=== PATIENT | female | born 1945 | race African-American/Black ===

== ENCOUNTER 2018-05-01 14:08 | Inpatient (IN) | payer MEDICARE ==
[2018-05-01] MEDS ORDERED: ONDANSETRON 4 MG TAB.RAPDIS PO ONE (14:32)
[2018-05-01] MEDS ORDERED: PANTOPRAZOLE SODIUM 40 MG VIAL IV ONE (14:34)
[2018-05-01 14:51] LABS: ABSOLUTE LYMPHOCYTES (AUTO) 1.1 10^3/uL (0.5-4.7); ABSOLUTE MONOCYTES (AUTO) 0.4 10^3/uL (0.1-1.4); BASOPHILS % (AUTO) 0.4 % (0-2); EOSINOPHILS % (AUTO) 0.1 % (0-6); HEMOGLOBIN 16.6 g/dL (12.0-15.5); LYMPHOCYTES % (AUTO) 9.1 % (13-45); MEAN CORPUSCULAR HEMOGLOBIN 31.6 pg (27.0-33.4); MEAN CORPUSCULAR HGB CONC 35.3 g/dL (32.0-36.0); MEAN CORPUSCULAR VOLUME 90 fl (80-97); MONOCYTES % (AUTO) 3.3 % (3-13); PLATELET COUNT 250 10^3/uL (150-450); RED BLOOD COUNT 5.25 10^6/uL (3.72-5.28); RED CELL DISTRIBUTION WIDTH 12.2 % (11.5-14.0); SEGMENTED NEUTROPHILS % (AUTO) 87.1 % (42-78); TOTAL CELLS COUNTED % (AUTO) 100 %; WHITE BLOOD COUNT 12.6 10^3/uL (4.0-10.5)
[2018-05-01] MEDS ORDERED: MORPHINE SULFATE 10 MG/ML INJ IV ONE ×2 (15:01→17:39)
--- NOTE | 2018-05-01 15:12 | ER Document Report ---
ED Medical Screen (RME) - General Chief Complaint: Nausea/Vomiting Stated Complaint: ABDOMINAL PAIN Time Seen by Provider: 05/01/18 14:19 TRAVEL OUTSIDE OF THE [place] IN LAST 30 DAYS: No - HPI Onset: Other - 72-year-old woman with a history of reflux in the past previously evaluated and started on Zantac subsequently stopping it with intense abdominal pain recurrent vomiting which prompted her to present to the emergency room for further evaluation. She denies any fevers or chills, secondary signs of infection. She is not trying to take anything to help with this. - Related Data Allergies/Adverse Reactions: No Known Allergies Allergy (Verified 05/01/18 14:16) Past Medical History - Social History Chew tobacco use (# tins/day): No Drug Abuse: None - Past Medical History Cardiac Medical History: Reports: Hx Hypertension Renal/ Medical History: Denies: Hx Peritoneal Dialysis Physical Exam - Vital signs Vitals: Temp Pulse Resp BP Pulse Ox 97.8 F 88 22 H 194/86 H 100 05/01/18 14:12 05/01/18 14:12 05/01/18 14:12 05/01/18 14:12 05/01/18 14:12 Course - Re-evaluation Re-evalutation: 05/01/18 15:13 I performed a rapid screening examination of this patient, will defer further disposition determination of workup to attending provider in the emergency department. Believe that this patient will require further evaluation, have ordered labs and initiated treatment - Vital Signs Vital signs: Temp Pulse Resp BP Pulse Ox 97.8 F 88 22 H 194/86 H 100 05/01/18 14:12 05/01/18 14:12 05/01/18 14:12 05/01/18 14:12 05/01/18 14:12 - Laboratory Result Diagrams: 05/01/18 14:39 05/01/18 14:39 Laboratory results interpreted by me: 05/01/18 14:39 WBC 12.6 H Hgb 16.6 H Seg Neutrophils % 87.1 H Lymphocytes % 9.1 L Absolute Neutrophils 11.0 H
[2018-05-01 15:16] LABS: ALANINE AMINOTRANSFERASE 33 U/L (9-52); ALBUMIN 5.2 g/dL (3.5-5.0); ALKALINE PHOSPHATASE 105 U/L (38-126); ANION GAP 15 (5-19); ASPARTATE AMINO TRANSFERASE 38 U/L (14-36); BILIRUBIN,DIRECT 0.3 mg/dL (0.0-0.4); BILIRUBIN,TOTAL 0.7 mg/dL (0.2-1.3); BLOOD UREA NITROGEN 11 mg/dL (7-20); CALCIUM 11.5 mg/dL (8.4-10.2); CARBON DIOXIDE 28 mmol/L (22-30); CHLORIDE 101 mmol/L (98-107); GLUCOSE 206 mg/dL (75-110); LIPASE 163.6 U/L (23-300); POTASSIUM 3.7 mmol/L (3.6-5.0); SODIUM 143.8 mmol/L (137-145); TOTAL PROTEIN 9.8 g/dL (6.3-8.2)
--- NOTE | 2018-05-01 15:47 | RADIOLOGY REPORT (SQ) ---
EXAM DESCRIPTION: ACUTE ABDOMEN SERIES COMPLETED DATE/TIME: 05/01/2018 3:39 pm REASON FOR STUDY: concern for obstruction COMPARISON: None. NUMBER OF VIEWS: Three views. TECHNIQUE: Frontal chest, supine abdomen and upright/decubitus abdomen radiographic images acquired. LIMITATIONS: None. FINDINGS: CHEST: Lungs clear of infiltrates. FREE AIR: None. No abnormal gas collections. BOWEL GAS PATTERN: Nonobstructive pattern. No dilated loops or air fluid levels. CALCIFICATIONS: No suspicious calcifications. HARDWARE: None in the abdomen. SOFT TISSUES: No gross mass or suggestion of organomegaly. BONES: No acute fracture. No worrisome bone lesions. OTHER: No other significant finding. IMPRESSION: NO RADIOGRAPHIC EVIDENCE FOR ACUTE ABDOMINAL DISEASE. TECHNICAL DOCUMENTATION: JOB ID: [id number] [employer]- All Rights Reserved Reading location - IP/workstation name: [facility], [id number]
--- NOTE | 2018-05-01 16:23 | ER Document Report ---
ED General - General Chief Complaint: Nausea/Vomiting Stated Complaint: ABDOMINAL PAIN Time Seen by Provider: 05/01/18 14:19 TRAVEL OUTSIDE OF THE [place] IN LAST 30 DAYS: No - HPI Notes: Patient is a 72-year-old female that presents to the emergency department for chief complaint of nausea vomiting and diarrhea. Patient started having vomiting and diarrhea this morning. Her daughter states that she has been admitted a few times in the recent past in [place] for similar symptoms. Patient had EGD performed which showed gastritis. Her daughter states she was started on a medication at home for a month which significantly improved her symptoms. Patient has not been on those medications and seems to have increased GI complaints. She reports feeling sweaty as well. She denies any chest pain, shortness of breath, palpitations, numbness, weakness, headache and vision changes. She states she has had a stress test but has been a long time. She denies history of cardiac disease in the past. Past Medical History: Hypertension, spinal stenosis Past Surgical History: Hysterectomy Social History: Occasional alcohol. Denies tobacco and drugs Family History: Reviewed and noncontributory for presenting illness Allergies: Reviewed, see documented allergy list. REVIEW OF SYSTEMS: CONSTITUTIONAL : No fever No chills diaphoresis No recent illness EENT: No vision changes No congestion No sore throat CARDIOVASCULAR: No chest pain No palpitations RESPIRATORY: No shortness of breath No cough No difficulty breathing GASTROINTESTINAL: No abdominal pain nausea vomiting diarrhea GENITOURINARY: No dysuria No hematuria No difficulty urinating MUSCULOSKELETAL: No back pain No leg pain No arm pain SKIN: No rashes No lesions LYMPHATIC: No swollen, enlarged glands. NEUROLOGICAL: No lightheadedness No headache No weakness No paresthesias PSYCHIATRIC: No anxiety No depression PHYSICAL EXAMINATION: Vital signs reviewed, nursing noted reviewed. GENERAL: Mildly diaphoretic, well-nourished HEAD: Atraumatic, normocephalic. EYES: Eyes appear normal, extraocular movements intact, sclera anicteric, conjunctiva are normal. ENT: nares patent, oropharynx clear without exudates. Moist mucous membranes. NECK: Normal range of motion, supple without lymphadenopathy LUNGS: Breath sounds clear to auscultation bilaterally and equal. No wheezes rales or rhonchi. HEART: Regular rate and rhythm without murmurs ABDOMEN: Soft, nontender, normoactive bowel sounds. No rebound, guarding, or rigidity. No masses appreciated. EXTREMITIES: Nontender, good range of motion, no pitting or edema. NEUROLOGICAL: No focal neurological deficits. Moves all extremities spontaneously Motor and sensory grossly intact on exam. PSYCH: Normal mood, normal affect. SKIN: Warm, Dry, normal turgor, no rashes or lesions noted on exposed skin - Related Data Allergies/Adverse Reactions: No Known Allergies Allergy (Verified 05/01/18 14:16) Past Medical History - Social History Smoking Status: Never Smoker Chew tobacco use (# tins/day): No Drug Abuse: None Family History: Reviewed & Not Pertinent Patient has suicidal ideation: No Patient has homicidal ideation: No - Past Medical History Cardiac Medical History: Reports: Hx Hypertension Renal/ Medical History: Denies: Hx Peritoneal Dialysis Review of Systems - Review of Systems Notes: Dictated Physical Exam - Vital signs Vitals: Temp Pulse Resp BP Pulse Ox 97.8 F 88 22 H 194/86 H 100 05/01/18 14:12 05/01/18 14:12 05/01/18 14:12 05/01/18 14:12 05/01/18 14:12 - Notes Notes: Dictated Course - Re-evaluation Re-evalutation: 05/01/18 17:41 Vitals reviewed. Nursing notes reviewed. Patient reevaluated and appears worse. Repeat abdominal exam now shows left lower quadrant tenderness that is new from her initial presentation. She is more diaphoretic and nauseated. Patient was given another dose of morphine and Phenergan for symptom medic treatment. Repeat EKG obtained. Her lab work reviewed is unremarkable. Her troponin is negative. Lipase normal. KUB showed no obstructive pathology. 05/01/18 20:37 Patient reevaluated. Her pain has improved after morphine but is not completely resolved. She is still mildly diaphoretic. Repeat troponin is negative. Patient still appears ill and will be admitted to the hospital for telemetry monitoring of her abnormal EKG and continued abdominal pain. Case discussed with Dr. Dalton who accepted admission. Laboratory 05/01/18 05/01/18 05/01/18 14:39 14:39 14:39 WBC 12.6 H RBC 5.25 Hgb 16.6 H Hct 47.0 MCV 90 MCH 31.6 MCHC 35.3 RDW 12.2 Plt Count 250 Seg Neutrophils % 87.1 H Lymphocytes % 9.1 L Monocytes % 3.3 Eosinophils % 0.1 Basophils % 0.4 Absolute Neutrophils 11.0 H Absolute Lymphocytes 1.1 Absolute Monocytes 0.4 Absolute Eosinophils 0.0 Absolute Basophils 0.0 Sodium 143.8 Potassium 3.7 Chloride 101 Carbon Dioxide 28 Anion Gap 15 BUN 11 Creatinine 0.70 Est GFR ( Amer) > 60 Est GFR (Non-Af Amer) > 60 Glucose 206 H Calcium 11.5 H Total Bilirubin 0.7 Direct Bilirubin 0.3 Neonat Total Bilirubin Not Reportable Neonat Direct Bilirubin Not Reportable Neonat Indirect Bili Not Reportable AST 38 H ALT 33 Alkaline Phosphatase 105 Troponin I < 0.012 Total Protein 9.8 H Albumin 5.2 H Lipase 163.6 Urine Color Urine Appearance Urine pH Ur Specific Oaks Urine Protein Urine Glucose (UA) Urine Ketones Urine Blood Urine Nitrite Urine Bilirubin Urine Urobilinogen Ur Leukocyte Esterase Urine WBC (Auto) Urine RBC (Auto) Squamous Epi Cells Auto Urine Mucus (Auto) Urine Ascorbic Acid 05/01/18 05/01/18 17:10 19:46 WBC RBC Hgb Hct MCV MCH MCHC RDW Plt Count Seg Neutrophils % Lymphocytes % Monocytes % Eosinophils % Basophils % Absolute Neutrophils Absolute Lymphocytes Absolute Monocytes Absolute Eosinophils Absolute Basophils Sodium Potassium Chloride Carbon Dioxide Anion Gap BUN Creatinine Est GFR ( Amer) Est GFR (Non-Af Amer) Glucose Calcium Total Bilirubin Direct Bilirubin Neonat Total Bilirubin Neonat Direct Bilirubin Neonat Indirect Bili AST ALT Alkaline Phosphatase Troponin I < 0.012 Total Protein Albumin Lipase Urine Color STRAW Urine Appearance CLEAR Urine pH 9.0 Ur Specific Oaks 1.015 Urine Protein 100 H Urine Glucose (UA) >=1000 H Urine Ketones 100 H Urine Blood NEGATIVE Urine Nitrite NEGATIVE Urine Bilirubin NEGATIVE Urine Urobilinogen NEGATIVE Ur Leukocyte Esterase NEGATIVE Urine WBC (Auto) 1 Urine RBC (Auto) 4 Squamous Epi Cells Auto <1 Urine Mucus (Auto) RARE Urine Ascorbic Acid NEGATIVE Acute Abdomen Series 05/01/18 14:32 IMPRESSION: NO RADIOGRAPHIC EVIDENCE FOR ACUTE ABDOMINAL DISEASE. Abdomen/Pelvis CT 05/01/18 17:39 IMPRESSION: 1. Mild diverticulosis coli. 2. Anterolisthesis of L3 on L4. 3. Possible small low-density gallstones. 4. No acute findings in the abdomen or pelvis. - Vital Signs Vital signs: Temp Pulse Resp BP Pulse Ox 97.8 F 88 22 H 194/86 H 100 05/01/18 14:12 05/01/18 14:12 05/01/18 14:12 05/01/18 14:12 05/01/18 14:12 - Laboratory Result Diagrams: 05/01/18 14:39 05/01/18 14:39 Laboratory results interpreted by me: 05/01/18 05/01/18 05/01/18 14:39 14:39 17:10 WBC 12.6 H Hgb 16.6 H Seg Neutrophils % 87.1 H Lymphocytes % 9.1 L Absolute Neutrophils 11.0 H Glucose 206 H Calcium 11.5 H AST 38 H Total Protein 9.8 H Albumin 5.2 H Urine Protein 100 H Urine Glucose (UA) >=1000 H Urine Ketones 100 H - EKG Interpretation by Me Additional EKG results interpreted by me: 05/01/18 16:22 Interpreted by myself 1541: Normal sinus rhythm, rate 88, prolonged QT, QTC 509, PACs, normal axis, biphasic T waves V2 with ST elevation, inverted T waves V3 with no ST elevation 05/01/18 16:22 05/01/18 19:35 Repeat EKG 1759: Interpreted by myself. Improved T wave morphology V2 V3, no ST elevation, sinus tachycardia, rate 108, normal axis Discharge - Discharge Clinical Impression: Abnormal EKG Nausea and vomiting Qualifiers: Vomiting type: unspecified Vomiting Intractability: non-intractable Qualified Code(s): R11.2 - Nausea with vomiting, unspecified Diarrhea Qualifiers: Diarrhea type: unspecified type Qualified Code(s): R19.7 - Diarrhea, unspecified Abdominal pain Qualifiers: Abdominal location: left lower quadrant Qualified Code(s): R10.32 - Left lower quadrant pain Condition: Stable Disposition: ADMITTED OBSERVATION Admitting Provider: Hospitalist Unit Admitted: Telemetry
[2018-05-01 17:21] LABS: APPEARANCE,URINE CLEAR; BILIRUBIN,URINE NEGATIVE (NEGATIVE); COLOR,URINE STRAW; KETONES,URINE 100 mg/dL (NEGATIVE); LEUKOCYTE ESTERASE,URINE NEGATIVE (NEGATIVE); NITRITE,URINE NEGATIVE (NEGATIVE); PROTEIN,URINE 100 mg/dL (NEGATIVE); UROBILINOGEN,URINE NEGATIVE mg/dL (<2.0)
[2018-05-01 17:27] LABS: GLUCOSE, URINE >=1000 mg/dL (NEGATIVE); URINE SPECIFIC GRAVITY 1.015
[2018-05-01] MEDS ORDERED: NORMAL SALINE 1000 ML 1,000 ML IV ONE (17:40)
[2018-05-01] MEDS ORDERED: ASPIRIN 81 MG TABLET, CHEWABLE PO ONE (17:41)
[2018-05-01] MEDS ORDERED: PROMETHAZINE HCL INJ 25 MG/1 ML VIAL IV ONE ×2 (17:41→21:28)
--- NOTE | 2018-05-01 18:59 | RADIOLOGY REPORT (SQ) ---
EXAM DESCRIPTION: CT ABD/PELVIS WITH IV ONLY COMPLETED DATE/TIME: 05/01/2018 6:42 pm REASON FOR STUDY: abdominal pain COMPARISON: None. TECHNIQUE: CT scan of the abdomen and pelvis performed using helical scanning technique with dynamic intravenous contrast injection. No oral contrast. Images reviewed with lung, soft tissue, and bone windows. Reconstructed coronal and sagittal MPR images reviewed. Delayed images for evaluation of the urinary system also acquired. All images stored on PACS. All CT scanners at this facility use dose modulation, iterative reconstruction, and/or weight based d osing when appropriate to reduce radiation dose to as low as reasonably achievable (ALARA). [facility]: Dose Right [facility]: CareDose [facility]: Dose Right [facility]: Teradose 4D [facility]: Passworks CONTRAST TYPE AND DOSE: contrast/concentration: Isovue 350.00 mg/ml; Total Contrast Delivered: 79.0 ml; Total Saline Delivered: 43.0 ml RENAL FUNCTION: BUN 11 creatinine 0.7 RADIATION DOSE: CT Rad equipment meets quality standard of care and radiation dose reduction techniq ues were employed. CTDIvol: 6.2 - 8.4 mGy. DLP: 702 mGy-cm.. LIMITATIONS: None. FINDINGS: LOWER CHEST: No significant findings. No nodules or infiltrates. LIVER: Normal size. No masses. No dilated ducts. SPLEEN: Normal size. No focal lesions. PANCREAS: No masses. No significant calcifications. No adjacent inflammation or peripancreatic fluid collections. Pancreatic duct not dilated. GALLBLADDER: Possible low-density gallstones. ADRENAL GLANDS: No significant masses or asymmetry. RIGHT KIDNEY AND URETER: No solid masses. No significant calcifications. No hydronephrosis or hyd roureter. LEFT KIDNEY AND URETER: No solid masses. No significant calcifications. No hydronephrosis or hydr oureter. AORTA AND VESSELS: No aneurysm. No dissection. Renal arteries, SMA, celiac without stenosis. RETROPERITONEUM: No retroperitoneal adenopathy, hemorrhage or masses. BOWEL AND PERITONEAL CAVITY: Mild sigmoid diverticulosis with no acute inflammation. APPENDIX: Not identified. PELVIS: No mass. No free fluid. Normal bladder. ABDOMINAL WALL: No masses. No hernias. BONES: Anterolisthesis of L3 on L4. OTHER: No other significant finding. IMPRESSION: 1. Mild diverticulosis coli. 2. Anterolisthesis of L3 on L4. 3. Possible small low-density gallstones. 4. No acute findings in the abdomen or pelvis. TECHNICAL DOCUMENTATION: JOB ID: [id number] Quality ID # [id number]: Final reports with documentation of one or more dose reduction techniques (e.g., Au tomated exposure control, adjustment of the mA and/or kV according to patient size, use of iterative reconstruction technique) 2010 [employer]- All Rights Reserved Reading location - IP/workstation name: [email or web address]
--- NOTE | 2018-05-01 19:54 | EKG REPORT ---
SEVERITY:- ABNORMAL ECG - SINUS RHYTHM ATRIAL PREMATURE COMPLEX LEFT VENTRICULAR HYPERTROPHY BORDERLINE PROLONGED QT INTERVAL : Confirmed by: Pastora Fernandez MD 01-May-2018 19:53:21
--- NOTE | 2018-05-01 19:54 | EKG REPORT ---
SEVERITY:- ABNORMAL ECG - SINUS TACHYCARDIA LEFT VENTRICULAR HYPERTROPHY BORDERLINE PROLONGED QT INTERVAL : Confirmed by: Pastora Fernandez MD 01-May-2018 19:53:18
[2018-05-01] MEDS ORDERED: MAG HYDROX/AL HYDROX/SIMETH SUSP 30 ML UDCUP PO PRN (20:37)
[2018-05-01] MEDS ORDERED: NITROGLYCERIN 0.4 MG/TAB 25 TAB/BOTTLE SL PRN (20:37)
[2018-05-01] MEDS ORDERED: FUROSEMIDE INJ/PF 40 MG/4 ML SDV IV ONE (21:00)
[2018-05-01] MEDS ORDERED: LACTULOSE SYRUP 20 GM/30 ML UDCUP PO ONE (21:00)
[2018-05-01] MEDS: HYDRALAZINE HCL INJ/PF 20 MG/1 ML SDV IV PRN (21:03)
[2018-05-01 21:17] LABS: ANION GAP 16 (5-19); BLOOD UREA NITROGEN 11 mg/dL (7-20); CALCIUM 10.3 mg/dL (8.4-10.2); CARBON DIOXIDE 26 mmol/L (22-30); CHLORIDE 101 mmol/L (98-107); GLUCOSE 203 mg/dL (75-110); POTASSIUM 3.3 mmol/L (3.6-5.0); SODIUM 142.5 mmol/L (137-145)
[2018-05-01] MEDS: ATORVASTATIN CALCIUM 80 MG TABLET PO SCH (21:34)
[2018-05-01] MEDS ORDERED: ENALAPRILAT DIHYDRATE INJ/PF 2.5 MG/2 ML SDV IV ONE (22:15)
[2018-05-01] MEDS ORDERED: POTASSI CL 20 MEQ/50 ML RIDER 20 MEQ/50 ML RTUPB IV ONE (22:15)
[2018-05-02] MEDS ORDERED: MINERAL OIL ENEMA 133 ML PR ONE ×2 (00:48→01:00)
[2018-05-02] MEDS ORDERED: LORAZEPAM INJ 2 MG/1 ML VIAL IV ONE (02:00)
[2018-05-02 02:26] LABS: CREATINE KINASE MB 1.19 ng/mL (<4.55); TROPONIN I 0.031 ng/mL
--- NOTE | 2018-05-02 04:35 | PDOC H&P ---
History of Present Illness Admission Date/PCP: 05/01/18 20:40 Patient complains of: Abdominal pain nausea vomiting History of Present Illness: BRIANDA MCRAE is a 72 year old female with a past medical history of hypertension. She presents with 12 hours of abdominal pain nausea vomiting and diarrhea without blood. She has had several episodes in the past with unclear diagnosis. In the emergency room she is found to have hypercalcemia, hyperglycemia, uncontrolled hypertension and constipation on CT abdomen pelvis. She denies chest pain though has had diaphoresis and shortness of breath. She is unable to identify alleviating or exacerbating factors aside from Phenergan and morphine. She denies new medications. Past Medical History Cardiac Medical History: Reports: Hypertension Social History Information Source: Patient, Emergency Med Personnel, [facility] Records Lives with: Family Smoking Status: Never Smoker Drugs: None - Advance Directive Resuscitation Status: Full Code Family History Family History: Hypertension Parental Family History Reviewed: Yes Children Family History Reviewed: Yes Sibling(s) Family History Reviewed.: Yes Medication/Allergy Home Medications: Amlodipine Besylate [Norvasc 10 mg Tablet] 10 mg PO DAILY 05/01/18 Allergies/Adverse Reactions: No Known Allergies Allergy (Verified 05/01/18 14:16) Review of Systems Constitutional: PRESENT: as per HPI, fatigue. ABSENT: chills, fever(s), headache(s), night sweats, weakness Eyes: ABSENT: visual disturbances Ears: ABSENT: hearing changes Cardiovascular: ABSENT: chest pain, dyspnea on exertion, edema, orthropnea, palpitations Respiratory: ABSENT: cough, hemoptysis Gastrointestinal: PRESENT: as per HPI, abdominal pain, bloating, constipation, diarrhea, nausea, vomiting Genitourinary: ABSENT: dysuria, hematuria Musculoskeletal: ABSENT: joint swelling Integumentary: ABSENT: rash, wounds Neurological: ABSENT: abnormal gait, abnormal speech, confusion, dizziness, focal weakness, syncope Psychiatric: ABSENT: anxiety, depression, homidical ideation, suicidal ideation Endocrine: ABSENT: cold intolerance, heat intolerance, polydipsia, polyuria Hematologic/Lymphatic: ABSENT: easy bleeding, easy bruising Physical Exam Vital Signs: Temp Pulse Resp BP Pulse Ox 98.4 F 101 H 17 174/76 H 100 05/02/18 00:16 05/02/18 02:00 05/02/18 00:16 05/02/18 00:16 05/02/18 00:16 Intake & Output 04/30/18 05/01/18 05/02/18 11:59 11:59 11:59 Intake Total 50 Balance 50 Weight 66.4 kg General appearance: PRESENT: cooperative, mild distress, well-developed, well- nourished Head exam: PRESENT: atraumatic, normocephalic Eye exam: PRESENT: conjunctiva pink, EOMI, PERRLA. ABSENT: scleral icterus Ear exam: PRESENT: normal external ear exam Mouth exam: PRESENT: moist, tongue midline Neck exam: ABSENT: carotid bruit, JVD, lymphadenopathy, thyromegaly Respiratory exam: PRESENT: clear to auscultation ceci. ABSENT: rales, rhonchi, wheezes Cardiovascular exam: PRESENT: RRR. ABSENT: diastolic murmur, rubs, systolic murmur Pulses: PRESENT: normal dorsalis pedis pul Vascular exam: PRESENT: normal capillary refill GI/Abdominal exam: PRESENT: diminished bowel sounds, hypoactive bowel sounds, normal bowel sounds, soft, tenderness. ABSENT: distended, guarding, mass, organolmegaly, rebound, rigid Rectal exam: PRESENT: deferred Extremities exam: PRESENT: full ROM. ABSENT: calf tenderness, clubbing, pedal edema Neurological exam: PRESENT: alert, awake, oriented to person, oriented to place , oriented to time, oriented to situation, CN II-XII grossly intact. ABSENT: motor sensory deficit Psychiatric exam: PRESENT: appropriate affect, normal mood. ABSENT: homicidal ideation, suicidal ideation Skin exam: PRESENT: dry, intact, warm. ABSENT: cyanosis, rash Results Laboratory Results: 05/02/18 01:47 CK-MB (CK-2) 1.19 Troponin I 0.031 Impressions: Acute Abdomen Series 05/01/18 14:32 IMPRESSION: NO RADIOGRAPHIC EVIDENCE FOR ACUTE ABDOMINAL DISEASE. Abdomen/Pelvis CT 05/01/18 17:39 IMPRESSION: 1. Mild diverticulosis coli. 2. Anterolisthesis of L3 on L4. 3. Possible small low-density gallstones. 4. No acute findings in the abdomen or pelvis. Assessment & Plan - Diagnosis (1) Abdominal pain Qualifiers: Abdominal location: left lower quadrant Qualified Code(s): R10.32 - Left lower quadrant pain Is this a current diagnosis for this admission?: Yes Plan: Likely secondary to constipation with evidence on CT. Symptomatic management, Fleet enema, bowel regiment (2) Hyperglycemia Is this a current diagnosis for this admission?: Yes Plan: No history of diabetes, evaluate A1c, possible gastroparesis, avoid QT prolonging agents. (3) Hypercalcemia Is this a current diagnosis for this admission?: Yes Plan: Hydration and reevaluation. (4) Abnormal EKG Is this a current diagnosis for this admission?: Yes Plan: Prolonged QT, avoid prolonging agents. Atypical chest pain though the patient' s pain is atypical there are multiple risk factors for coronary artery disease and subsequently will observe and evaluation of acute coronary syndrome versus coronary artery disease with anginal equivalents. Cardiac monitoring blood pressure Q6 hours ,TSH, lipid profile, serial cardiac enzymes and cardiac stress test (5) Diarrhea Qualifiers: Diarrhea type: unspecified type Qualified Code(s): R19.7 - Diarrhea, unspecified Is this a current diagnosis for this admission?: Yes Plan: Likely secondary to constipation. Trial lactulose, Fleet enema. Bowel regiment (6) Nausea and vomiting Qualifiers: Vomiting type: unspecified Vomiting Intractability: non-intractable Qualified Code(s): R11.2 - Nausea with vomiting, unspecified Is this a current diagnosis for this admission?: Yes Plan: Gastroparesis versus constipation versus hypercalcemia. Symptomatic management reevaluation of above. - Time Time Spent: 30 to 50 Minutes
[2018-05-02] MEDS: HYDRALAZINE HCL INJ/PF 20 MG/1 ML SDV IV PRN ×2 (05:24→20:14)
[2018-05-02 08:42] LABS: ANION GAP 14 (5-19); BLOOD UREA NITROGEN 20 mg/dL (7-20); CALCIUM 10.3 mg/dL (8.4-10.2); CARBON DIOXIDE 24 mmol/L (22-30); CHLORIDE 103 mmol/L (98-107); CHOLESTEROL 212.42 mg/dL (0-200); GLUCOSE 177 mg/dL (75-110); POTASSIUM 3.6 mmol/L (3.6-5.0); SODIUM 141.2 mmol/L (137-145); TRIGLYCERIDES 61 mg/dL (<150)
[2018-05-02 08:53] LABS: CREATINE KINASE MB 1.01 ng/mL (<4.55); DIRECT LDL 112 mg/dL (<100); TROPONIN I 0.046 ng/mL
[2018-05-02] MEDS ORDERED: REGADENOSON INJ 0.4 MG/5 ML DISP.SYRIN IV ONE (11:41)
[2018-05-02] MEDS: DOCUSATE SODIUM 100 MG CAPSULE PO SCH ×2 (11:43→17:34)
[2018-05-02] MEDS: PSYLLIUM SEED-SF 5.85 GM PACKET PO SCH (11:45)
--- NOTE | 2018-05-02 11:58 | DRAGON STRESS TEST REPORT ---
INTRAVENOUS LEXISCAN CARDIOLITE STRESS TEST USING SINGLE PHOTON EMMISION COMPUTERIZED TOMOGRAPHIC. DATE OF PROCEDURE: May 02, 2018, INDICATION : Chest pain CARDIAC RISK FACTORS: Hypertension, dyslipidemia RESTING EKG: Sinus rhythm without any baseline ST-T wave changes STRESS EKG: No significant ST segment changes noted with LexiScan bolus REASON FOR TERMINATION: Protocol. PROCEDURE REPORT: Baseline heart rate 105 beats per minute with blood pressure of 156/83. Patient had no significant complaints. Patient was bolused with Lexiscan 0.4 mg intravenously followed by saline bolus. Heart rate at 2 minutes post bolus 125 with a blood pressure of 136/83. 3 minutes post bolus heart rate 123 with blood pressure of 145/82. No significant EKG changes were noted. Patient had no significant complaints during the procedure or postprocedure. CONCLUSIONS: Normal EKG and hemodynamic response to IV LexiScan. NUCLEAR DATA: At rest the patient was given 10.68 millicuries of technetium 99 sestamibi injected intravenously. As per protocol rest gated SPECT images were obtained. On day of stress test, the patient was given intravenous LexiScan at a dose of 0.4 mg in 5 mL intravenously, followed by flush with normal saline. Subsequently the stress dose of 31.7. millicuries of technetium 99 sestamibi was injected intravenously. As per protocol stress gated images were obtained. NUCLEAR INTERPRETATION: Both raw and processed data were used for interpretation. Visual, qualitative, computer-generated quantitative data was used. There was good myocardial uptake of technetium compound. Motion artifact and soft tissue attenuations were noted. Increased visceral uptake was noted. No definitive areas of transient perfusion defect noted, No definitive areas of fixed perfusion defect or scars noted. There was however a borderline decreased uptake noted in the mid anterior wall and mid anterolateral wall which is felt to be related to differences in breast attenuation artifact, as there were no corresponding wall motion abnormalities, however an area of mild ischemia cannot be entirely ruled out. Total SDS was 2 therefore overall low risk. EKG gated imaging showed LV EF at 63 %, rest and stress gated EF similar visually. T. I D. ratio was 1.13. Lung heart ratio noted to be within normal limits 0.26, no significant extracardiac and abnormal radiotracer activities were noted. RV free wall uptake was noted to be WNL. IMPRESSION: Also refer to comments under nuclear interpretation. Also test results needs to be interpreted in the context of pretest probability. 1. No definitive areas of transient perfusion defect noted. Please refer to comment in nuclear interpretation. 2. There is no definitive scintigraphic evidence of myocardial infarction/scar. 3. EKG gated imaging shows left ventricular ejection fraction of approx. 63 %. 4. Clinical correlation requested as worse disease and or balanced ischemia could be missed. In approximately 10% of the cases Lexiscan may not cause adequate vasodilatory stress. RECOMMENDATIONS: Aggressive risk factor modification and medical management. Further evaluation may be needed if continued symptoms or other high risk indicators are noted on clinical evaluation. Close cardiology follow-up is also recommended. Clinical correlation with echocardiogram derived ejection fraction. Inability to exercise by itself can lead to increased cardiovascular event risks. Consider cardiology consultation and or follow-up if clinically indicated. I am available for cardiology evaluation and consultation if requested by the director industrial relations, unless patient already has a watch commander. Dr. Braxton Diaz. MRCP Board certified in cardiology and sleep medicine. Board certified in nuclear cardiology, adult echocardiography. [employer]
[2018-05-02] MEDS ORDERED: RINGERS SOLUTION,LACTATED 1,000 ML IV PRN (15:54)
--- NOTE | 2018-05-02 16:09 | PDOC PROGRESS REPORT ---
Subjective Progress Note for:: 05/02/18 Subjective:: Patient was admitted with nausea vomiting and nonbloody diarrhea. It appears this is an ongoing diagnosis issue. Denies any chest pain but still c/o vague abdominal pain, nausea and vomiting She had a stress test done today due to concerns about atypical chest pain and multiple risk factors for coronary artery disease. Her troponin is noted to be slightly elevated at 0.046 today. It was less than 0.012 on admission. Stress test reveals no definite areas of transient perfusion defect noted action fraction was noted to be 63%. Reason For Visit: CHEST AND ABD PAIN, HTN Physical Exam Vital Signs: Temp Pulse Resp BP Pulse Ox 97.8 F 101 H 14 158/84 H 100 05/02/18 14:00 05/02/18 14:00 05/02/18 14:00 05/02/18 14:00 05/02/18 14:00 Intake & Output 05/01/18 05/02/18 05/03/18 06:59 06:59 06:59 Intake Total 50 1200 Balance 50 1200 Weight 66.4 kg General appearance: PRESENT: no acute distress, well-developed, well-nourished Head exam: PRESENT: atraumatic, normocephalic Eye exam: PRESENT: conjunctiva pink, EOMI, PERRLA. ABSENT: scleral icterus Ear exam: PRESENT: normal external ear exam Mouth exam: PRESENT: moist, tongue midline Neck exam: ABSENT: carotid bruit, JVD, lymphadenopathy, thyromegaly Respiratory exam: PRESENT: clear to auscultation ceci. ABSENT: rales, rhonchi, wheezes Cardiovascular exam: PRESENT: RRR. ABSENT: diastolic murmur, rubs, systolic murmur Pulses: PRESENT: normal dorsalis pedis pul Vascular exam: PRESENT: normal capillary refill GI/Abdominal exam: PRESENT: normal bowel sounds, soft. ABSENT: distended, guarding, mass, organolmegaly, rebound, tenderness Rectal exam: PRESENT: deferred Extremities exam: PRESENT: full ROM. ABSENT: calf tenderness, clubbing, pedal edema Neurological exam: PRESENT: alert, awake, oriented to person, oriented to place , oriented to time, oriented to situation, CN II-XII grossly intact. ABSENT: motor sensory deficit Psychiatric exam: PRESENT: appropriate affect, normal mood. ABSENT: homicidal ideation, suicidal ideation Skin exam: PRESENT: dry, intact, warm. ABSENT: cyanosis, rash Results Laboratory Results: 05/02/18 08:00 05/02/18 08:00 Sodium 141.2 Potassium 3.6 Chloride 103 Carbon Dioxide 24 Anion Gap 14 BUN 20 Creatinine 1.17 Est GFR ( Amer) 55 L Est GFR (Non-Af Amer) 45 L Glucose 177 H Calcium 10.3 H Triglycerides 61 Cholesterol 212.42 H LDL Cholesterol Direct 112 H VLDL Cholesterol 12.0 HDL Cholesterol 75 05/02/18 05/02/18 01:47 08:00 CK-MB (CK-2) 1.19 1.01 Troponin I 0.031 0.046 Impressions: Acute Abdomen Series 05/01/18 14:32 IMPRESSION: NO RADIOGRAPHIC EVIDENCE FOR ACUTE ABDOMINAL DISEASE. Abdomen/Pelvis CT 05/01/18 17:39 IMPRESSION: 1. Mild diverticulosis coli. 2. Anterolisthesis of L3 on L4. 3. Possible small low-density gallstones. 4. No acute findings in the abdomen or pelvis. Assessment & Plan - Diagnosis (1) Elevated troponin I level Is this a current diagnosis for this admission?: Yes (2) Diarrhea Qualifiers: Diarrhea type: unspecified type Qualified Code(s): R19.7 - Diarrhea, unspecified Is this a current diagnosis for this admission?: Yes (3) Hypercalcemia Is this a current diagnosis for this admission?: Yes (4) Nausea and vomiting Qualifiers: Vomiting type: unspecified Vomiting Intractability: non-intractable Qualified Code(s): R11.2 - Nausea with vomiting, unspecified Is this a current diagnosis for this admission?: Yes - Time Time Spent with patient: 15-24 minutes Medications reviewed and adjusted accordingly: Yes Anticipated discharge: Home Within: within 48 hours - Inpatient Certification Based on my medical assessment, after consideration of the patient's comorbidities, presenting symptoms, or acuity I expect that the services needed warrant INPATIENT care.: Yes Medical Necessity: Need For Continuous Telemetry Monitoring, Risk of Complication if Not Cared For in Hospital - Plan Summary Plan Summary: Cardiology consult due to elevated troponin, abnormal EKG Add Beta anival, ASA, statin to regimen. Cont low dose lovenox Start IVF
[2018-05-02] MEDS: METOPROLOL TARTRATE 25 MG TABLET PO SCH (17:34)
[2018-05-02] MEDS: ENOXAPARIN SODIUM INJ 40 MG/0.4 ML DISP.SYRIN SUBCUT SCH (17:35)
[2018-05-02] MEDS ORDERED: ACETAMINOPHEN 325 MG TABLET ONE (17:50)
[2018-05-02] MEDS: PROMETHAZINE HCL INJ 25 MG/1 ML VIAL IV PRN (17:52)
[2018-05-02] MEDS ORDERED: ACETAMINOPHEN 325 MG TABLET PO PRN (17:52)
--- NOTE | 2018-05-02 20:11 | PDOC CONSULTATION ---
Consultation Consult Date: 05/02/18 Attending physician:: DARIAN GASTELUM Consult reason:: Abnormal troponin I and chest pain History of Present Illness Admission Date/PCP: 05/01/18 20:40 Patient complains of: Nausea vomiting and abdominal pain History of Present Illness: BRIANDA MCRAE is a 72 year old female with a past medical history of hypertension. She presents with 12 hours of abdominal pain nausea vomiting and diarrhea without blood. She has had several episodes in the past with unclear diagnosis. In the emergency room she is found to have hypercalcemia, hyperglycemia, uncontrolled hypertension and constipation on CT abdomen pelvis. She denies chest pain though has had diaphoresis and shortness of breath. She is unable to identify alleviating or exacerbating factors aside from Phenergan and morphine. She denies new medications. This history obtained by the hospitalist was reviewed and confirmed. Patient denied any prior history of heart problems, angina or CHF. She does have history of hypertension. Patient did have a nuclear stress test yesterday which was negative for significant ischemia. No fixed defect noted. However troponin I showed a small bump. I was therefore asked to evaluate patient. Past Medical History Cardiac Medical History: Reports: Hypertension Social History Information Source: Patient Lives with: Family Smoking Status: Never Smoker Drugs: None - Advance Directive Resuscitation Status: Full Code Family History Family History: Hypertension Parental Family History Reviewed: Yes Children Family History Reviewed: Yes Sibling(s) Family History Reviewed.: Yes - Negative for premature coronary artery disease or sudden cardiac in the family amongst first degree relatives. Medication/Allergy Home Medications: Amlodipine Besylate [Norvasc 10 mg Tablet] 10 mg PO DAILY 05/01/18 Allergies/Adverse Reactions: No Known Allergies Allergy (Verified 05/01/18 14:16) Review of Systems Review of Systems: Please see history of present illness and past medical history as wall. Constitutional: No fever or chills reported. Head : No recent chronic headaches, recent head injury. Eyes: No recent eye pain, diplopia, redness, discharge, acute visual changes. Ears: No recent chronic ear pain, acute hearing loss, ear discharge. Oral cavity: No recent ulcerations, bleeding, oral cavity discomfort. Neck: No recent acute neck pain reported. Hematologic: No recent easy bruising or bleeding. Lymphatic: No recent lymph node enlargement reported. Cardiovascular system review: See history of present illness. Respiratory system review: No hemoptysis or blood clots in the lungs reported. Mild Shortness of breath on exertion Gastrointestinal system review: Negative for any recent acute hematemesis, melena. Recent nausea vomiting and diarrhea Genitourinary system review: No recent acute or chronic hematuria, flank pain, UTI etc. reported. Skin system review: Negative for any recent abnormal bruising, no rash, no pruritus reported. Neurologic: No prior history of strokes, mini strokes, seizure disorder. Psychologic: No history of major psychosis or major depression reported. Musculoskeletal: Minor aches and pains reported. No acute joint swelling reported. Endocrine: No recent polyuria, polydipsia, recent heat or cold intolerance. Physical Exam Vital Signs: Temp Pulse Resp BP Pulse Ox 98.3 F 130 H 16 131/75 H 99 05/02/18 18:00 05/02/18 18:00 05/02/18 18:00 05/02/18 18:00 05/02/18 18:00 Intake & Output 05/01/18 05/02/18 05/03/18 06:59 06:59 06:59 Intake Total 50 1200 Balance 50 1200 Weight 66.4 kg Exam: GENERAL: well-nourished and in no acute distress. Alert and oriented x3 HEAD: Atraumatic, normocephalic. EYES: Pupils equal round and reactive to light, extraocular movements intact, sclera anicteric, conjunctiva are normal. ENT: TMs normal, nares patent, oropharynx clear without exudates. Moist mucous membranes. No oral ulcerations or bleeding gums noted NECK: supple without lymphadenopathy. Trachea is central. No cervical or axillary lymphadenopathy noted. Carotids are 2+, JVD WNL LUNGS: Respiration seems nonlabored, no significant accessory muscle action noted. Breath sounds clear to auscultation bilaterally and equal noted. No wheezes rales or rhonchi noted. No significant dullness noted on percussion. CHEST: Palpation of the chest wall shows no significant chest wall tenderness. HEART: [place] [employer], No PSH, 1/6 MANUELA aortic area, 1/6 jones systolic murmur mitral area, no rubs, no gallops. ABDOMEN: Soft, no significant tenderness appreciated, normoactive bowel sounds. No guarding, no rebound. No rigidity noted . No masses appreciated. EXTREMITIES: Pedal pulses are 1-2+, no calf tenderness noted. No clubbing or cyanosis. negative pedal edema noted NEUROLOGICAL: Focused neurological exam showed no significant neurologic deficit. Normal speech, no focal weakness appreciated. PSYCH: Normal mood, normal affect. Judgment and insight within normal limits. SKIN: No significant ecchymosis, skin is noted to be warm. MUSCULOSKELETAL EXAM: No significant acute joint swelling noted. Results Laboratory Results: 05/02/18 08:00 05/02/18 08:00 Sodium 141.2 Potassium 3.6 Chloride 103 Carbon Dioxide 24 Anion Gap 14 BUN 20 Creatinine 1.17 Est GFR ( Amer) 55 L Est GFR (Non-Af Amer) 45 L Glucose 177 H Calcium 10.3 H Triglycerides 61 Cholesterol 212.42 H LDL Cholesterol Direct 112 H VLDL Cholesterol 12.0 HDL Cholesterol 75 05/02/18 05/02/18 01:47 08:00 CK-MB (CK-2) 1.19 1.01 Troponin I 0.031 0.046 EKG Comments: Sinus rhythm, APCs, nonspecific T wave inversion Impressions: Acute Abdomen Series 05/01/18 14:32 IMPRESSION: NO RADIOGRAPHIC EVIDENCE FOR ACUTE ABDOMINAL DISEASE. Abdomen/Pelvis CT 05/01/18 17:39 IMPRESSION: 1. Mild diverticulosis coli. 2. Anterolisthesis of L3 on L4. 3. Possible small low-density gallstones. 4. No acute findings in the abdomen or pelvis. Assessment & Plan - Diagnosis (1) Elevated troponin I level Is this a current diagnosis for this admission?: Yes (2) Abdominal pain Qualifiers: Abdominal location: left lower quadrant Qualified Code(s): R10.32 - Left lower quadrant pain Is this a current diagnosis for this admission?: Yes (3) Abnormal EKG Is this a current diagnosis for this admission?: Yes (4) Abnormal electrocardiogram Is this a current diagnosis for this admission?: Yes (5) Hypercalcemia Is this a current diagnosis for this admission?: Yes (6) Hyperglycemia Is this a current diagnosis for this admission?: Yes (7) Hypertension Qualifiers: Hypertension type: essential hypertension Qualified Code(s): I10 - Essential (primary) hypertension Is this a current diagnosis for this admission?: Yes - Notes Notes: Nuclear stress test was noted to be relatively low risk. Have ordered a 2D echo for further risk stratification. We will also ordered a CTA chest to look for coronary calcification etc. and look for other causes of chest pain. In the meantime recommend antiplatelet therapy, statin therapy, beta-anival therapy. Abnormal electrocardiogram: To be evaluated with a nuclear stress test and a 2D echocardiogram. Possibly related to LVH. These results were discussed. Elevated troponin I: Probably not significant in this lady with abdominal discomfort, nausea and vomiting as well as mild renal dysfunction and hyperglycemia. Continue to observe for any continued elevation. Hypertension: Blood pressure under satisfactory control. Continue home medications. Abdominal pain: This is being evaluated by the hospitalist. Hypercalcemia: Exact etiology not clear, this is being evaluated by hospitalist. Hyperglycemia: Patient being monitored closely for any diabetes. Blood sugar coming under better control. Nuclear stress test results were reviewed. No significant ischemia noted. 2D echocardiogram to be reviewed. This is pending at the time of this dictation. - Time Time Spent: 30 to 50 Minutes - More than 50% of the time spent coordinating care , discussing management plans with involved caregivers. Management plans discussed with involved personnels. Medical decision making was of moderate to high complexity, patient's has multiple comorbidities. Medications reviewed and adjusted accordingly: Yes
[2018-05-02] MEDS: ATORVASTATIN CALCIUM 80 MG TABLET PO SCH (21:41)
[2018-05-03] MEDS: HYDRALAZINE HCL INJ/PF 20 MG/1 ML SDV IV PRN ×2 (03:53→20:16)
[2018-05-03 05:16] LABS: ABSOLUTE BASOPHILS # (AUTO) 0.1 10^3/uL (0.0-0.2); ABSOLUTE LYMPHOCYTES (AUTO) 2.7 10^3/uL (0.5-4.7); ABSOLUTE MONOCYTES (AUTO) 1.4 10^3/uL (0.1-1.4); ABSOLUTE NEUT (AUTO) 13.3 10^3/uL (1.7-8.2); BASOPHILS % (AUTO) 0.8 % (0-2); EOSINOPHILS % (AUTO) 0.1 % (0-6); HEMATOCRIT 41.7 % (36.0-47.0); HEMOGLOBIN 14.6 g/dL (12.0-15.5); LYMPHOCYTES % (AUTO) 15.5 % (13-45); MEAN CORPUSCULAR HEMOGLOBIN 31.2 pg (27.0-33.4); MEAN CORPUSCULAR HGB CONC 35.1 g/dL (32.0-36.0); MEAN CORPUSCULAR VOLUME 89 fl (80-97); MONOCYTES % (AUTO) 8.2 % (3-13); PLATELET COUNT 227 10^3/uL (150-450); RED BLOOD COUNT 4.69 10^6/uL (3.72-5.28); RED CELL DISTRIBUTION WIDTH 12.6 % (11.5-14.0); SEGMENTED NEUTROPHILS % (AUTO) 75.4 % (42-78); TOTAL CELLS COUNTED % (AUTO) 100 %; WHITE BLOOD COUNT 17.6 10^3/uL (4.0-10.5)
[2018-05-03 05:36] LABS: ANION GAP 14 (5-19); BLOOD UREA NITROGEN 21 mg/dL (7-20); CARBON DIOXIDE 22 mmol/L (22-30); CHLORIDE 101 mmol/L (98-107); GLUCOSE 137 mg/dL (75-110); POTASSIUM 3.3 mmol/L (3.6-5.0); SODIUM 137.2 mmol/L (137-145)
[2018-05-03] MEDS: METOPROLOL TARTRATE 25 MG TABLET PO SCH ×2 (05:50→17:36)
[2018-05-03 09:25] LABS: APPEARANCE,URINE CLEAR; BILIRUBIN,URINE NEGATIVE (NEGATIVE); COLOR,URINE YELLOW; GLUCOSE, URINE 50 mg/dL (NEGATIVE); KETONES,URINE NEGATIVE (NEGATIVE); LEUKOCYTE ESTERASE,URINE NEGATIVE (NEGATIVE); NITRITE,URINE NEGATIVE (NEGATIVE); PROTEIN,URINE NEGATIVE (NEGATIVE); UROBILINOGEN,URINE NEGATIVE mg/dL (<2.0)
--- NOTE | 2018-05-03 09:36 | XCELERA REPORT ---
[address] [address] Transthoracic Echocardiogram Report Name: BRIANDA MCRAE Age: 72 yrs Gender: Female : 1945 Patient Status: Inpatient Patient Location: [address] [place] [address] Study Date: 05/02/2018 07:00 PM Height: 66 in Weight: 146 lb BSA: 1.7 m2 Procedure: A complete two-dimensional transthoracic echocardiogram was performed (2D, M-mode, spectral and color flow Doppler). The study was technically adequate with some images being suboptimal in quality. Reason For Study: Chest pain Ordering Physician: JARRED GREEN Performed By: Jesika Garcia Interpretation Summary Normal LVEF, mild LVH, grade 2 diastolic dysfunction. Mild mitral regurgitation, mild tricuspid regurgitation. Trace aortic incompetence noted. RVSP estimated at approximately 50 mmHg consistent with moderate pulmonary hypertension. Mild RVH noted RV is borderline enlarged. MMode/2D Measurements & Calculations RVDd: 2.5 cm LVIDd: 4.9 cm FS: 40.5 % Ao root diam: 2.7 cm IVSd: 1.2 cm LVIDs: 2.9 cm EDV(Teich): 111.3 ml Ao root area: 5.5 cm2 LVPWd: 1.2 cm ESV(Teich): 32.2 ml ACS: 1.6 cm EF(Teich): 71.1 % LA dimension: 3.1 cm Doppler Measurements & Calculations MV E max herbert: MV P1/2t max herbert: Ao V2 max: LV V1 max P.7 cm/sec 124.9 cm/sec 174.7 cm/sec 9.3 mmHg MV A max herbert: MV P1/2t: 52.7 msec Ao max PG: LV V1 max: 141.1 cm/sec 12.2 mmHg 152.7 cm/sec MV E/A: 0.70 MVA(P1/2t): 4.2 cm2 MV dec slope: 693.9 cm/sec2 MV dec time: 0.26 sec PA V2 max: TR max herbert: MV P1/2t-pr_phl: 105.1 cm/sec 333.9 cm/sec 52.7 msec PA max P.4 mmHgTR max P.6 mmHg Left Ventricle The left ventricle is grossly normal size. There is mild concentric left ventricular hypertrophy. The left ventricular ejection fraction is normal. Doppler measurements suggest pseudonormalized left ventricular relaxation, which is associated with grade II/IV or mild to moderate diastolic dysfunction. No regional wall motion abnormalities noted. Right Ventricle The right ventricle is borderline dilated. The right ventricle appears to be hypertrophied. The right ventricular systolic function is normal. Atria The right atrium is normal in size. The left atrial size is normal. Interarterial septum not well visualized and not well dopplered. Cannot comment on ASD/PFO presence. Mitral Valve The mitral valve is grossly normal. There is no mitral valve stenosis. There is a mild amount of mitral regurgitation. Aortic Valve The aortic valve is grossly normal. There is no aortic valve stenosis. There is a trace amount of aortic regurgitation. Tricuspid Valve The tricuspid valve is not well visualized, but is grossly normal. There is no tricuspid stenosis. There is a mild amount of tricuspid regurgitation. There is moderate pulmonary hypertension by echo. Right ventricular systolic pressure is estimated to be elevated at 50-60mmHg. Pulmonic Valve The pulmonic valve is not well visualized. Great Vessels The aortic root is not well visualized but is probably normal size. The inferior vena cava was not well visualized. Effusions Minimal pericardial effusion. : JARRED GREEN > Jarred Green
[2018-05-03] MEDS: DOCUSATE SODIUM 100 MG CAPSULE PO SCH ×2 (10:37→17:36)
[2018-05-03] MEDS: ASPIRIN 81 MG TABLET, CHEWABLE PO SCH (10:37)
[2018-05-03] MEDS: PSYLLIUM SEED-SF 5.85 GM PACKET PO SCH (10:38)
[2018-05-03] MEDS: ENOXAPARIN SODIUM INJ 40 MG/0.4 ML DISP.SYRIN SUBCUT SCH (10:38)
[2018-05-03] MEDS: AMLODIPINE BESYLATE 10 MG TABLET PO SCH (10:39)
[2018-05-03] MEDS ORDERED: RINGERS SOLUTION,LACTATED 1,000 ML IV PRN (11:00)
[2018-05-03] MEDS ORDERED: POTASSIUM CHLORIDE 10 MEQ CAPSULE.ER PO ONE (11:15)
--- NOTE | 2018-05-03 12:12 | RADIOLOGY REPORT (SQ) ---
EXAM DESCRIPTION: CTA CHEST COMPLETED DATE/TIME: 05/03/2018 11:39 am REASON FOR STUDY: Dyspnea, chest pain R73.9 HYPERGLYCEMIA, UNSPECIFIED I21.4 NON-ST ELEVATION (NST CLEM) MYOCARDIAL INFARCTION R07.89 OTHER CHEST PAIN COMPARISON: None. TECHNIQUE: CT scan of the chest performed using helical scanning technique with dynamic intravenous contrast injection. Images reviewed with lung, soft tissue and bone windows. Reconstructed coronal and sagittal MPR images reviewed. Additional 3 dimensional post-processing performed to develop Maximal Intensity Projection images (HI P). All images stored on PACS. All CT scanners at this facility use dose modulation, iterative reconstruction, and/or weight based d osing when appropriate to reduce radiation dose to as low as reasonably achievable (ALARA). [facility]: Dose Right [facility]: CareDose [facility]: Dose Right [facility]: Teradose 4D [facility]: Occasion CONTRAST TYPE AND DOSE: contrast/concentration: Isovue 350.00 mg/ml; Total Contrast Delivered: 60.0 ml; Total Saline Delivered: 105.0 ml Contrast bolus optimized for the pulmonary arteries. Not diagnostic for the aorta. RENAL FUNCTION: BUN 21 creatinine 0.7 RADIATION DOSE: CT Rad equipment meets quality standard of care and radiation dose reduction techniq ues were employed. CTDIvol: 6.5 - 9.4 mGy. DLP: 253 mGy-cm. . LIMITATIONS: None. FINDINGS: LUNGS AND PLEURA: No masses, infiltrates, or pneumothorax. No pleural effusions or pleura l calcifications. AORTA AND GREAT VESSELS: No aneurysm. Contrast bolus not optimized for the aorta. HEART: No pericardial effusion. Moderate to marked coronary artery calcifications. PULMONARY ARTERIES: No emboli visualized in the main pulmonary arteries or the segmental branches. HILAR AND MEDIASTINAL STRUCTURES: No identified masses or abnormal nodes. HARDWARE: None in the chest. UPPER ABDOMEN: Hgaw-sy-gnrpguz gallbladder.2 THYROID AND OTHER SOFT TISSUES: No masses. No adenopathy. BONES: No acute or significant finding. 3D MIPS: Confirm above findings. OTHER: No other significant finding. IMPRESSION: 1. There is no evidence of pulmonary embolus. 2. Milk of calcium gallbladder. COMMENT: Quality ID # [id number]: Final reports with documentation of one or more dose reduction techniques (e.g., Automated exposure control, adjustment of the mA and/or kV according to patient size, use of iterative reconstruction technique) TECHNICAL DOCUMENTATION: JOB ID: [id number] [employer]- All Rights Reserved Reading location - IP/workstation name: [email or web address]
--- NOTE | 2018-05-03 12:49 | PDOC PROGRESS REPORT ---
Subjective Progress Note for:: 05/03/18 Subjective:: Patient was admitted with nausea vomiting and nonbloody diarrhea. It appears this is an ongoing diagnosis issue. Denies any chest pain but still c/o vague abdominal pain, nausea and vomiting She had a stress test done which is deemed low risk. Patient still c/o vague abdominal pain. WBC noted to be elevated, etiology unclear Reason For Visit: CHEST AND ABD PAIN, HTN Physical Exam Vital Signs: Temp Pulse Resp BP Pulse Ox 98.8 F 84 17 169/96 H 98 05/03/18 03:56 05/03/18 07:00 05/03/18 03:56 05/03/18 03:56 05/03/18 03:56 Intake & Output 05/02/18 05/03/18 05/04/18 06:59 06:59 06:59 Intake Total 50 1850 Balance 50 1850 Weight 66.4 kg 66.1 kg General appearance: PRESENT: no acute distress, well-developed, well-nourished Head exam: PRESENT: atraumatic, normocephalic Eye exam: PRESENT: conjunctiva pink, EOMI, PERRLA. ABSENT: scleral icterus Ear exam: PRESENT: normal external ear exam Mouth exam: PRESENT: moist, tongue midline Neck exam: ABSENT: carotid bruit, JVD, lymphadenopathy, thyromegaly Respiratory exam: PRESENT: clear to auscultation ceci. ABSENT: rales, rhonchi, wheezes Cardiovascular exam: PRESENT: RRR. ABSENT: diastolic murmur, rubs, systolic murmur Pulses: PRESENT: normal dorsalis pedis pul Vascular exam: PRESENT: normal capillary refill GI/Abdominal exam: PRESENT: normal bowel sounds, soft. ABSENT: distended, guarding, mass, organolmegaly, rebound, tenderness Rectal exam: PRESENT: deferred Extremities exam: PRESENT: full ROM. ABSENT: calf tenderness, clubbing, pedal edema Neurological exam: PRESENT: alert, awake, oriented to person, oriented to place , oriented to time, oriented to situation, CN II-XII grossly intact. ABSENT: motor sensory deficit Psychiatric exam: PRESENT: appropriate affect, normal mood. ABSENT: homicidal ideation, suicidal ideation Skin exam: PRESENT: dry, intact, warm. ABSENT: cyanosis, rash Results Laboratory Results: 05/03/18 04:55 05/03/18 04:55 05/03/18 05/03/18 05/03/18 04:55 04:55 09:05 WBC 17.6 H RBC 4.69 Hgb 14.6 Hct 41.7 MCV 89 MCH 31.2 MCHC 35.1 RDW 12.6 Plt Count 227 Seg Neutrophils % 75.4 Lymphocytes % 15.5 Monocytes % 8.2 Eosinophils % 0.1 Basophils % 0.8 Absolute Neutrophils 13.3 H Absolute Lymphocytes 2.7 Absolute Monocytes 1.4 Absolute Eosinophils 0.0 Absolute Basophils 0.1 Sodium 137.2 Potassium 3.3 L Chloride 101 Carbon Dioxide 22 Anion Gap 14 BUN 21 H Creatinine 0.71 Est GFR ( Amer) > 60 Est GFR (Non-Af Amer) > 60 Glucose 137 H Calcium 10.0 Magnesium 2.0 Urine Color YELLOW Urine Appearance CLEAR Urine pH 8.0 Ur Specific [place] 1.010 Urine Protein NEGATIVE Urine Glucose (UA) 50 H Urine Ketones NEGATIVE Urine Blood NEGATIVE Urine Nitrite NEGATIVE Ur Leukocyte Esterase NEGATIVE Urine WBC (Auto) 1 Urine RBC (Auto) 1 05/02/18 05/02/18 05/03/18 01:47 08:00 04:55 CK-MB (CK-2) 1.19 1.01 Troponin I 0.031 0.046 0.026 Impressions: Acute Abdomen Series 05/01/18 14:32 IMPRESSION: NO RADIOGRAPHIC EVIDENCE FOR ACUTE ABDOMINAL DISEASE. Abdomen/Pelvis CT 05/01/18 17:39 IMPRESSION: 1. Mild diverticulosis coli. 2. Anterolisthesis of L3 on L4. 3. Possible small low-density gallstones. 4. No acute findings in the abdomen or pelvis. Chest/Abdomen CTA 05/03/18 00:00 IMPRESSION: 1. There is no evidence of pulmonary embolus. 2. Milk of calcium gallbladder. Assessment & Plan - Diagnosis (1) Elevated troponin I level Is this a current diagnosis for this admission?: Yes (2) Diarrhea Qualifiers: Diarrhea type: unspecified type Qualified Code(s): R19.7 - Diarrhea, unspecified Is this a current diagnosis for this admission?: Yes (3) Hypercalcemia Is this a current diagnosis for this admission?: Yes (4) Nausea and vomiting Qualifiers: Vomiting type: unspecified Vomiting Intractability: non-intractable Qualified Code(s): R11.2 - Nausea with vomiting, unspecified Is this a current diagnosis for this admission?: Yes - Time Time Spent with patient: 15-24 minutes Medications reviewed and adjusted accordingly: Yes Anticipated discharge: Home Within: within 24 hours - Inpatient Certification Based on my medical assessment, after consideration of the patient's comorbidities, presenting symptoms, or acuity I expect that the services needed warrant INPATIENT care.: Yes Medical Necessity: Need For IV Fluids, Need for IV Antibiotics - Plan Summary Plan Summary: Will start empiric IV antibiotics, change diet to soft and recheck labs in am
[2018-05-03] MEDS ORDERED: CEFTRIAXONE 1 GM/D5W RTU 1 GM/50 ML RTUPB IV SCH (13:00)
--- NOTE | 2018-05-03 15:13 | Physician Advisory Note ---
Physician Advisor ProgressNote .: Pursuant to the plan for [facility], I have reviewed the medical record for this patient. Physician Advisor Statement: Please consider documenting, if you agree: 1. most likely cause(s) of leukocytosis, elevated trop I, diarrhea, hypoKalemia , N/V. 2. Continue to list Acute LLQ pain & CP, with their most likely causes Thanks! CK
[2018-05-03] MEDS: CEFTRIAXONE SODIUM 1,000 MG in DEXTROSE 5%-WATER 50 ML IV SCH (15:36)
[2018-05-03] MEDS: ATORVASTATIN CALCIUM 80 MG TABLET PO SCH (21:35)
[2018-05-04] MEDS: METOPROLOL TARTRATE 25 MG TABLET PO SCH ×2 (05:53→17:21)
[2018-05-04 06:13] LABS: ABSOLUTE BASOPHILS # (AUTO) 0.1 10^3/uL (0.0-0.2); ABSOLUTE LYMPHOCYTES (AUTO) 2.4 10^3/uL (0.5-4.7); ABSOLUTE MONOCYTES (AUTO) 1.3 10^3/uL (0.1-1.4); ABSOLUTE NEUT (AUTO) 8.4 10^3/uL (1.7-8.2); BASOPHILS % (AUTO) 0.6 % (0-2); EOSINOPHILS % (AUTO) 0.2 % (0-6); HEMATOCRIT 42.1 % (36.0-47.0); HEMOGLOBIN 14.9 g/dL (12.0-15.5); LYMPHOCYTES % (AUTO) 19.7 % (13-45); MEAN CORPUSCULAR HEMOGLOBIN 31.4 pg (27.0-33.4); MEAN CORPUSCULAR HGB CONC 35.5 g/dL (32.0-36.0); MEAN CORPUSCULAR VOLUME 89 fl (80-97); MONOCYTES % (AUTO) 10.3 % (3-13); PLATELET COUNT 201 10^3/uL (150-450); RED BLOOD COUNT 4.75 10^6/uL (3.72-5.28); RED CELL DISTRIBUTION WIDTH 12.7 % (11.5-14.0); SEGMENTED NEUTROPHILS % (AUTO) 69.2 % (42-78); TOTAL CELLS COUNTED % (AUTO) 100 %; WHITE BLOOD COUNT 12.1 10^3/uL (4.0-10.5)
[2018-05-04 06:32] LABS: ANION GAP 11 (5-19); BLOOD UREA NITROGEN 15 mg/dL (7-20); CALCIUM 9.8 mg/dL (8.4-10.2); CARBON DIOXIDE 25 mmol/L (22-30); CHLORIDE 100 mmol/L (98-107); GLUCOSE 157 mg/dL (75-110); POTASSIUM 3.3 mmol/L (3.6-5.0); SODIUM 135.9 mmol/L (137-145)
[2018-05-04] MEDS ORDERED: POTASSIUM CHLORIDE 10 MEQ CAPSULE.ER PO ONE (08:15)
[2018-05-04] MEDS: CEFTRIAXONE SODIUM 1,000 MG in DEXTROSE 5%-WATER 50 ML IV SCH (09:53)
[2018-05-04] MEDS: AMLODIPINE BESYLATE 10 MG TABLET PO SCH (09:54)
[2018-05-04] MEDS: DOCUSATE SODIUM 100 MG CAPSULE PO SCH ×2 (09:54→17:21)
[2018-05-04] MEDS: ENOXAPARIN SODIUM INJ 40 MG/0.4 ML DISP.SYRIN SUBCUT SCH (09:54)
[2018-05-04] MEDS: ASPIRIN 81 MG TABLET, CHEWABLE PO SCH (09:54)
[2018-05-04] MEDS: PSYLLIUM SEED-SF 5.85 GM PACKET PO SCH (10:02)
--- NOTE | 2018-05-04 15:00 | PDOC PROGRESS REPORT ---
Subjective Progress Note for:: 05/04/18 Subjective:: Patient was admitted with nausea vomiting and nonbloody diarrhea. Patient still has some warm abdominal discomfort although denies any vomiting or diarrhea He does have some nausea although improved She denies any chest pain. Reason For Visit: CHEST AND ABD PAIN, HTN Physical Exam Vital Signs: Temp Pulse Resp BP Pulse Ox 98.8 F 89 18 150/94 H 100 05/04/18 08:59 05/04/18 08:59 05/04/18 08:59 05/04/18 08:59 05/04/18 08:59 Intake & Output 05/03/18 05/04/18 05/05/18 06:59 06:59 06:59 Intake Total 1850 1951 50 Output Total 300 Balance 1850 1651 50 Weight 66.1 kg 66.1 kg General appearance: PRESENT: no acute distress, well-developed, well-nourished Head exam: PRESENT: atraumatic, normocephalic Eye exam: PRESENT: conjunctiva pink, EOMI, PERRLA. ABSENT: scleral icterus Ear exam: PRESENT: normal external ear exam Mouth exam: PRESENT: moist, tongue midline Neck exam: ABSENT: carotid bruit, JVD, lymphadenopathy, thyromegaly Respiratory exam: PRESENT: clear to auscultation ceci. ABSENT: rales, rhonchi, wheezes Cardiovascular exam: PRESENT: RRR. ABSENT: diastolic murmur, rubs, systolic murmur Pulses: PRESENT: normal dorsalis pedis pul Vascular exam: PRESENT: normal capillary refill GI/Abdominal exam: PRESENT: normal bowel sounds, soft. ABSENT: distended, guarding, mass, organolmegaly, rebound, tenderness Rectal exam: PRESENT: deferred Extremities exam: PRESENT: full ROM. ABSENT: calf tenderness, clubbing, pedal edema Neurological exam: PRESENT: alert, awake, oriented to person, oriented to place , oriented to time, oriented to situation, CN II-XII grossly intact. ABSENT: motor sensory deficit Psychiatric exam: PRESENT: appropriate affect, normal mood. ABSENT: homicidal ideation, suicidal ideation Skin exam: PRESENT: dry, intact, warm. ABSENT: cyanosis, rash Results Laboratory Results: 05/04/18 06:02 05/04/18 06:02 05/04/18 05/04/18 06:02 06:02 WBC 12.1 H RBC 4.75 Hgb 14.9 Hct 42.1 MCV 89 MCH 31.4 MCHC 35.5 RDW 12.7 Plt Count 201 Seg Neutrophils % 69.2 Lymphocytes % 19.7 Monocytes % 10.3 Eosinophils % 0.2 Basophils % 0.6 Absolute Neutrophils 8.4 H Absolute Lymphocytes 2.4 Absolute Monocytes 1.3 Absolute Eosinophils 0.0 Absolute Basophils 0.1 Sodium 135.9 L Potassium 3.3 L Chloride 100 Carbon Dioxide 25 Anion Gap 11 BUN 15 Creatinine 0.68 Est GFR ( Amer) > 60 Est GFR (Non-Af Amer) > 60 Glucose 157 H Calcium 9.8 05/02/18 05/02/18 05/03/18 01:47 08:00 04:55 CK-MB (CK-2) 1.19 1.01 Troponin I 0.031 0.046 0.026 Impressions: Acute Abdomen Series 05/01/18 14:32 IMPRESSION: NO RADIOGRAPHIC EVIDENCE FOR ACUTE ABDOMINAL DISEASE. Abdomen/Pelvis CT 05/01/18 17:39 IMPRESSION: 1. Mild diverticulosis coli. 2. Anterolisthesis of L3 on L4. 3. Possible small low-density gallstones. 4. No acute findings in the abdomen or pelvis. Chest/Abdomen CTA 05/03/18 00:00 IMPRESSION: 1. There is no evidence of pulmonary embolus. 2. Milk of calcium gallbladder. Assessment & Plan - Diagnosis (1) Elevated troponin I level Is this a current diagnosis for this admission?: Yes Plan: Etiology is not quite clear. She has been seen by cardiology also with no specific diagnosis identified. This clubbing secondary to her stress and pain level. Cardiolite stress test was negative and echocardiogram is grossly intact (2) Diarrhea Qualifiers: Diarrhea type: unspecified type Qualified Code(s): R19.7 - Diarrhea, unspecified Is this a current diagnosis for this admission?: Yes Plan: Possible gastroenteritis This has resolved (3) Hypercalcemia Is this a current diagnosis for this admission?: Yes Plan: Likely secondary to dehydration. Resolved (4) Nausea and vomiting Qualifiers: Vomiting type: unspecified Vomiting Intractability: non-intractable Qualified Code(s): R11.2 - Nausea with vomiting, unspecified Is this a current diagnosis for this admission?: Yes Plan: Possibly from gastroenteritis. This has resolved follow-up with GI as outpatient (5) Leukocytosis Qualifiers: Leukocytosis type: unspecified Qualified Code(s): D72.829 - Elevated white blood cell count, unspecified Is this a current diagnosis for this admission?: Yes Plan: Secondary to systemic inflammatory response syndrome or to her acute GI symptoms etiology is quite unclear at this time however patient did respond to a course of IV antibiotics and so we will continue with this - Time Time Spent with patient: 15-24 minutes Medications reviewed and adjusted accordingly: Yes Anticipated discharge: Home Within: within 24 hours - Inpatient Certification Based on my medical assessment, after consideration of the patient's comorbidities, presenting symptoms, or acuity I expect that the services needed warrant INPATIENT care.: Yes
[2018-05-04] MEDS: SUCRALFATE 1 GM TABLET PO SCH ×2 (16:38→22:01)
[2018-05-04] MEDS: PANTOPRAZOLE SODIUM 40 MG VIAL IV SCH (16:38)
[2018-05-04] MEDS: PROMETHAZINE HCL INJ 25 MG/1 ML VIAL IV PRN (18:05)
--- NOTE | 2018-05-04 18:07 | Progress Note ---
Provider Note Provider Note: ID Consult Note Asked to review patient's chart by Pharmacy. Reviewed VS, imaging reports, laboratory studies, provider reports. Pt not seen or examined. Ms Herman is a 72 year old woman with PMH including acid reflux who presented with nausea, vomiting and diarrhea without blood x 12h on 05/01/18. Per ED provider's note, pt's daughter reported that the pt has EGD in the past that showed gastritis, had been previously on medications for a month that significantly improved symptoms but that had stopped them. Pt denied fever or chills among other complaints to include no dysuria, difficulty urinating, cough or SOB. On admission, she had no fever, was hypertensive, and had LLQ abdominal tenderness on exam with some diminished/hypoactive BS. Labs revealed leukocytosis on admission, hypercalcemia, hyperglycemia, normal lipase, no significant abnormalities in LFTs, no pyuria. Imaging included no obstructive pathology on KUB, mild diverticulosis without evidence of diverticulitis and possible small low-density gallstones and otherwise no acute findings in the abdomen/pelvis on CT. She was initially suspected of having constipation. She was given a fleet's enema, scheduled colace and metamucil, PPI, antiemetics. Pt was also evaluated for potential cardiac etiology of symptoms due to multiple CAD risk factors. As repeat labs on 05/03 revealed further elevation in WBC to 17.6k, empirically Rocephin was started. Subsequent labs the next day 05/04 have WBC 12k. CTA chest showed no evidence of PE, no pulmonary infiltrates to suggest pneumonia. With IVF calcium has normalized. Impression/Recommendations She had no subjective complaints of fever, and no objective fever since admission. CT chest abdomen and pelvis show no evidence of an acute intraabdominal infectious process or pneumonia. Pt had no LFT abnormalities on presentation, LLQ rather than RUQ tenderness, no fever - nothing that would suggest further evaluation to r/o biliary tract infection. Pt had no c/o dysuria, and U/A had no pyuria - pt has no evidence of a UTI. Pt may have had symptomatic hyperglycemia (- taking Tums excessively after Zantac was stopped prior to admission?). Hypercalcemia can commonly cause nausea and constipation, as was suspected by admitting physician (constipation with overflow fecal incontinence). Pt has leukocytosis. This is nonspecific. Leukocytosis can be related to infectious and noninfectious causes, such as stress induced demargination. She has no evidence based on the lab and imaging studies above, and no suggestive physical exam findings noted at present to suggest an ongoing infectious process. Her GI sx have reportedly resolved at this point. Most Recommend discontinuing Rocephin and monitoring patient. Slava Tinoco MD [facility] pager [phone]
--- NOTE | 2018-05-04 19:44 | PDOC PROGRESS REPORT ---
Subjective Progress Note for:: 05/03/18 Subjective:: Patient seems to be doing better with gradual improvement. Complains of nausea and diarrhea but better overall. Pt is denying any chest arm or neck discomfort. Patient denying any PND, orthopnea. Patient denied any sustained palpitations, dizziness, syncope, near syncope. Patient denying any fever chills. Patient denying any other significant discomfort. Patient is maintaining sinus rhythm. Review of systems: Rest review of systems negative. Medications: Medications have been reviewed. Reason For Visit: CHEST AND ABD PAIN, HTN Physical Exam Vital Signs: Temp Pulse Resp BP Pulse Ox 98.8 F 98 16 146/81 H 99 05/03/18 16:00 05/03/18 16:00 05/03/18 16:00 05/03/18 16:00 05/03/18 16:00 Intake & Output 05/02/18 05/03/18 05/04/18 06:59 06:59 06:59 Intake Total 50 1850 1641 Output Total 300 Balance 50 1850 1341 Weight 66.4 kg 66.1 kg Exam: GENERAL: well-nourished and in no acute distress. Alert and oriented x3 HEAD: Atraumatic, normocephalic. EYES: Pupils equal round and reactive to light, extraocular movements intact, sclera anicteric, conjunctiva are normal. ENT: TMs normal, nares patent, oropharynx clear without exudates. Moist mucous membranes. No oral ulcerations or bleeding gums noted NECK: supple without lymphadenopathy. Trachea is central. No cervical or axillary lymphadenopathy noted. Carotids are 2+, JVD WNL LUNGS: Respiration seems nonlabored, no significant accessory muscle action noted. Breath sounds clear to auscultation bilaterally and equal noted. No wheezes rales or rhonchi noted. No significant dullness noted on percussion. CHEST: Palpation of the chest wall shows no significant chest wall tenderness. 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 ABDOMEN: Soft, no significant tenderness appreciated, normoactive bowel sounds. No guarding, no rebound. No rigidity noted . No masses appreciated. EXTREMITIES: Pedal pulses are 1-2+, no calf tenderness noted. No clubbing or cyanosis. negative pedal edema noted NEUROLOGICAL: Focused neurological exam showed no significant neurologic deficit. Normal speech, no focal weakness appreciated. PSYCH: Normal mood, normal affect. Judgment and insight within normal limits. SKIN: No significant ecchymosis, skin is noted to be warm. MUSCULOSKELETAL EXAM: No significant acute joint swelling noted. Results Laboratory Results: 05/03/18 04:55 05/03/18 04:55 05/03/18 05/03/18 05/03/18 04:55 04:55 09:05 WBC 17.6 H RBC 4.69 Hgb 14.6 Hct 41.7 MCV 89 MCH 31.2 MCHC 35.1 RDW 12.6 Plt Count 227 Seg Neutrophils % 75.4 Lymphocytes % 15.5 Monocytes % 8.2 Eosinophils % 0.1 Basophils % 0.8 Absolute Neutrophils 13.3 H Absolute Lymphocytes 2.7 Absolute Monocytes 1.4 Absolute Eosinophils 0.0 Absolute Basophils 0.1 Sodium 137.2 Potassium 3.3 L Chloride 101 Carbon Dioxide 22 Anion Gap 14 BUN 21 H Creatinine 0.71 Est GFR ( Amer) > 60 Est GFR (Non-Af Amer) > 60 Glucose 137 H Calcium 10.0 Magnesium 2.0 Urine Color YELLOW Urine Appearance CLEAR Urine pH 8.0 Ur Specific [place] 1.010 Urine Protein NEGATIVE Urine Glucose (UA) 50 H Urine Ketones NEGATIVE Urine Blood NEGATIVE Urine Nitrite NEGATIVE Ur Leukocyte Esterase NEGATIVE Urine WBC (Auto) 1 Urine RBC (Auto) 1 05/02/18 05/02/18 05/03/18 01:47 08:00 04:55 CK-MB (CK-2) 1.19 1.01 Troponin I 0.031 0.046 0.026 EKG Comments: Shows sinus rhythm without any sustained tachycardia or bradycardia Impressions: Acute Abdomen Series 05/01/18 14:32 IMPRESSION: NO RADIOGRAPHIC EVIDENCE FOR ACUTE ABDOMINAL DISEASE. Abdomen/Pelvis CT 05/01/18 17:39 IMPRESSION: 1. Mild diverticulosis coli. 2. Anterolisthesis of L3 on L4. 3. Possible small low-density gallstones. 4. No acute findings in the abdomen or pelvis. Chest/Abdomen CTA 05/03/18 00:00 IMPRESSION: 1. There is no evidence of pulmonary embolus. 2. Milk of calcium gallbladder. Assessment & Plan - Diagnosis (1) Abnormal electrocardiogram Is this a current diagnosis for this admission?: Yes (2) Elevated troponin I level Is this a current diagnosis for this admission?: Yes (3) Hypertension Qualifiers: Hypertension type: essential hypertension Qualified Code(s): I10 - Essential (primary) hypertension Is this a current diagnosis for this admission?: Yes (4) Abdominal pain Qualifiers: Abdominal location: left lower quadrant Qualified Code(s): R10.32 - Left lower quadrant pain Is this a current diagnosis for this admission?: Yes (5) Hypercalcemia Is this a current diagnosis for this admission?: Yes (6) Hyperglycemia Is this a current diagnosis for this admission?: Yes - Notes Notes: Abnormal electrocardiogram: Was evaluated with a nuclear stress test and a 2D echocardiogram. Possibly related to LVH. These results were discussed. Elevated troponin I: Probably not significant in this lady with abdominal discomfort, nausea and vomiting as well as mild renal dysfunction and hyperglycemia. Continue to observe for any continued elevation. Hypertension: Blood pressure under satisfactory control. Continue home medications. Abdominal pain: This is being evaluated by the hospitalist. Hypercalcemia: Exact etiology not clear, this is being evaluated by hospitalist. Hyperglycemia: Patient being monitored closely for any diabetes. Blood sugar coming under better control. Nuclear stress test results were reviewed. No significant ischemia noted. 2D echocardiogram to be reviewed. - Time Time with patient: Greater than 35 minutes - More than 50% of the time spent coordinating care, discussing management plans with involved caregivers. Management plans discussed with involved personnels. Medical decision making was of moderate to high complexity, patient's has multiple comorbidities. Medications reviewed and adjusted accordingly: Yes
--- NOTE | 2018-05-04 19:53 | PDOC PROGRESS REPORT ---
Subjective Progress Note for:: 05/04/18 Subjective:: Patient seems to be doing better with gradual improvement. Complains of nausea and diarrhea but better overall. Pt is denying any chest arm or neck discomfort. Patient denying any PND, orthopnea. Patient denied any sustained palpitations, dizziness, syncope, near syncope. Patient denying any fever chills. Patient denying any other significant discomfort. Patient is maintaining sinus rhythm. Review of systems: Rest review of systems negative. Medications: Medications have been reviewed. Reason For Visit: CHEST AND ABD PAIN, HTN Physical Exam Vital Signs: Temp Pulse Resp BP Pulse Ox 98.8 F 89 18 150/94 H 100 05/04/18 08:59 05/04/18 08:59 05/04/18 08:59 05/04/18 08:59 05/04/18 08:59 Intake & Output 05/03/18 05/04/18 05/05/18 06:59 06:59 06:59 Intake Total 1850 1951 50 Output Total 300 Balance 1850 1651 50 Weight 66.1 kg 66.1 kg Exam: GENERAL: well-nourished and in no acute distress. Alert and oriented x3 HEAD: Atraumatic, normocephalic. EYES: Pupils equal round and reactive to light, extraocular movements intact, sclera anicteric, conjunctiva are normal. ENT: TMs normal, nares patent, oropharynx clear without exudates. Moist mucous membranes. No oral ulcerations or bleeding gums noted NECK: supple without lymphadenopathy. Trachea is central. No cervical or axillary lymphadenopathy noted. Carotids are 2+, JVD WNL LUNGS: Respiration seems nonlabored, no significant accessory muscle action noted. Breath sounds clear to auscultation bilaterally and equal noted. No wheezes rales or rhonchi noted. No significant dullness noted on percussion. CHEST: Palpation of the chest wall shows no significant chest wall tenderness. 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 ABDOMEN: Soft, no significant tenderness appreciated, normoactive bowel sounds. No guarding, no rebound. No rigidity noted . No masses appreciated. EXTREMITIES: Pedal pulses are 1-2+, no calf tenderness noted. No clubbing or cyanosis. negative pedal edema noted NEUROLOGICAL: Focused neurological exam showed no significant neurologic deficit. Normal speech, no focal weakness appreciated. PSYCH: Normal mood, normal affect. Judgment and insight within normal limits. SKIN: No significant ecchymosis, skin is noted to be warm. MUSCULOSKELETAL EXAM: No significant acute joint swelling noted. Results Laboratory Results: 05/04/18 06:02 05/04/18 06:02 05/04/18 05/04/18 06:02 06:02 WBC 12.1 H RBC 4.75 Hgb 14.9 Hct 42.1 MCV 89 MCH 31.4 MCHC 35.5 RDW 12.7 Plt Count 201 Seg Neutrophils % 69.2 Lymphocytes % 19.7 Monocytes % 10.3 Eosinophils % 0.2 Basophils % 0.6 Absolute Neutrophils 8.4 H Absolute Lymphocytes 2.4 Absolute Monocytes 1.3 Absolute Eosinophils 0.0 Absolute Basophils 0.1 Sodium 135.9 L Potassium 3.3 L Chloride 100 Carbon Dioxide 25 Anion Gap 11 BUN 15 Creatinine 0.68 Est GFR ( Amer) > 60 Est GFR (Non-Af Amer) > 60 Glucose 157 H Calcium 9.8 05/02/18 05/02/18 05/03/18 01:47 08:00 04:55 CK-MB (CK-2) 1.19 1.01 Troponin I 0.031 0.046 0.026 EKG Comments: Shows sinus rhythm without any sustained tachycardia or bradycardia. Impressions: Acute Abdomen Series 05/01/18 14:32 IMPRESSION: NO RADIOGRAPHIC EVIDENCE FOR ACUTE ABDOMINAL DISEASE. Abdomen/Pelvis CT 05/01/18 17:39 IMPRESSION: 1. Mild diverticulosis coli. 2. Anterolisthesis of L3 on L4. 3. Possible small low-density gallstones. 4. No acute findings in the abdomen or pelvis. Chest/Abdomen CTA 05/03/18 00:00 IMPRESSION: 1. There is no evidence of pulmonary embolus. 2. Milk of calcium gallbladder. Assessment & Plan - Diagnosis (1) Elevated troponin I level Is this a current diagnosis for this admission?: Yes (2) Abdominal pain Qualifiers: Abdominal location: left lower quadrant Qualified Code(s): R10.32 - Left lower quadrant pain Is this a current diagnosis for this admission?: Yes (3) Abnormal electrocardiogram Is this a current diagnosis for this admission?: Yes (4) Hypercalcemia Is this a current diagnosis for this admission?: Yes (5) Hyperglycemia Is this a current diagnosis for this admission?: Yes (6) Hypertension Qualifiers: Hypertension type: essential hypertension Qualified Code(s): I10 - Essential (primary) hypertension Is this a current diagnosis for this admission?: Yes - Notes Notes: 2D echocardiogram results were reviewed with the patient. Patient does have some enlargement of the RV. On questioning patient does have symptoms of insomnia and also possible sleep apnea syndrome. Have recommended a sleep study as an outpatient. Abnormal electrocardiogram: Nuclear stress test results were reviewed with the patient again. 2D echo results were reviewed. Possibly related to LVH. These results were discussed. Patient was noted to have moderate pulmonary hypertension. Elevated troponin I: Probably not significant in this lady with abdominal discomfort, nausea and vomiting as well as mild renal dysfunction and hyperglycemia. Continue to observe for any continued elevation. Hypertension: Blood pressure under satisfactory control. Continue home medications. Abdominal pain: This is being evaluated by the hospitalist. Hypercalcemia: Exact etiology not clear, this is being evaluated by hospitalist. Hyperglycemia: Patient being monitored closely for any diabetes. Blood sugar coming under better control. Nuclear stress test results were reviewed. No significant ischemia noted. 2D echo results reviewed with the patient and hospitalist. Nuclear stress results were noted to be negative. Discussed that occasionally single vessel disease could be missed. Also informed that balanced ischemia can rarely be missed. Patient was told that further evaluation will become indicated if he/she develops more symptoms indicative of ischemia or ischemia equivalent symptom. At this point however would recommend aggressive risk factor modification, medical therapy. Patient advised on risk factor modification. - Time Time with patient: Greater than 35 minutes - More than 50% of the time spent coordinating care, discussing management plans with involved caregivers. Management plans discussed with involved personnels. Medical decision making was of moderate to high complexity, patient's has multiple comorbidities. Medications reviewed and adjusted accordingly: Yes
[2018-05-04] MEDS ORDERED: LORAZEPAM INJ 2 MG/1 ML VIAL ONE (20:42)
[2018-05-04] MEDS ORDERED: LORAZEPAM INJ 2 MG/1 ML VIAL IV ONE (21:00)
[2018-05-04] MEDS: ATORVASTATIN CALCIUM 80 MG TABLET PO SCH (22:01)
[2018-05-05] MEDS: METOPROLOL TARTRATE 25 MG TABLET PO SCH (05:57)
[2018-05-05 06:31] LABS: ABSOLUTE BASOPHILS # (AUTO) 0.1 10^3/uL (0.0-0.2); ABSOLUTE EOSINOPHILS # (AUTO) 0.1 10^3/uL (0.0-0.6); ABSOLUTE NEUT (AUTO) 6.8 10^3/uL (1.7-8.2); BASOPHILS % (AUTO) 1.1 % (0-2); EOSINOPHILS % (AUTO) 0.7 % (0-6); HEMATOCRIT 41.4 % (36.0-47.0); HEMOGLOBIN 14.5 g/dL (12.0-15.5); LYMPHOCYTES % (AUTO) 27.1 % (13-45); MEAN CORPUSCULAR VOLUME 88 fl (80-97); MONOCYTES % (AUTO) 9.2 % (3-13); PLATELET COUNT 196 10^3/uL (150-450); RED BLOOD COUNT 4.68 10^6/uL (3.72-5.28); RED CELL DISTRIBUTION WIDTH 12.6 % (11.5-14.0); SEGMENTED NEUTROPHILS % (AUTO) 61.9 % (42-78); TOTAL CELLS COUNTED % (AUTO) 100 %; WHITE BLOOD COUNT 11.1 10^3/uL (4.0-10.5)
[2018-05-05 06:49] LABS: ANION GAP 10 (5-19); BLOOD UREA NITROGEN 18 mg/dL (7-20); CALCIUM 9.8 mg/dL (8.4-10.2); CARBON DIOXIDE 23 mmol/L (22-30); CHLORIDE 102 mmol/L (98-107); GLUCOSE 124 mg/dL (75-110); POTASSIUM 3.6 mmol/L (3.6-5.0); SODIUM 135.3 mmol/L (137-145)
[2018-05-05 10:03] VITALS: BP 115/71
[2018-05-05] MEDS: PANTOPRAZOLE SODIUM 40 MG VIAL IV SCH (10:39)
[2018-05-05] MEDS: SUCRALFATE 1 GM TABLET PO SCH (10:40)
[2018-05-05] MEDS: AMLODIPINE BESYLATE 10 MG TABLET PO SCH (10:40)
[2018-05-05] MEDS: ASPIRIN 81 MG TABLET, CHEWABLE PO SCH (10:40)
[2018-05-05] MEDS: PSYLLIUM SEED-SF 5.85 GM PACKET PO SCH (10:44)
[2018-05-05] MEDS: ENOXAPARIN SODIUM INJ 40 MG/0.4 ML DISP.SYRIN SUBCUT SCH (10:44)
[2018-05-05] MEDS: DOCUSATE SODIUM 100 MG CAPSULE PO SCH (10:44)
[2018-05-05 13:34] LABS: ANION GAP 11 (5-19); BLOOD UREA NITROGEN 26 mg/dL (7-20); CALCIUM 9.6 mg/dL (8.4-10.2); CARBON DIOXIDE 25 mmol/L (22-30); CHLORIDE 100 mmol/L (98-107); GLUCOSE 101 mg/dL (75-110); POTASSIUM 3.8 mmol/L (3.6-5.0); SODIUM 136.2 mmol/L (137-145)
--- NOTE | 2018-05-05 13:48 | PDOC DISCHARGE SUMMARY ---
General - Admit/Disc Date/PCP Admission Date/Primary Care Provider: 05/01/18 20:37 New to the area, no primary care doctor, will be assigned PCP on discharge Discharge Date: 05/05/18 - Discharge Diagnosis (1) Abdominal pain Is this a current diagnosis for this admission?: Yes Summary: This patient has been in and out of the hospital over the last year, most recently in [place] and has now moved to this area. The abdominal pain is of not entirely clear etiology. It appears at this time she had abdominal symptoms including pain diarrhea nausea and vomiting associated with some constipation. We think the diarrhea was a postobstructive diarrhea. With treatment of constipation and with treatment of GERD with a PPI she had resolution of her abdominal pain. Also possible that she had a gastroenteritis , she did have a leukocytosis which is now improving. Her diarrhea was nonbloody. This lady also had a slightly elevated troponin and was seen by the hvac installer and if she does have coronary disease abdominal pain could be an anginal equivalent and we will recommend that she be seen by hvac installer within the week after discharge. (2) Diarrhea Is this a current diagnosis for this admission?: Yes Summary: Nonbloody. Possible gastroenteritis versus a postobstructive diarrhea. Bowels are now moving normally. She is being discharged on Metamucil and Colace. She is now eating and drinking without difficulty. (3) Elevated troponin I level Is this a current diagnosis for this admission?: Yes Summary: It is possible that she has coronary disease. However, her stress test was negative. Echocardiogram had several findings including heart failure with preserved ejection fraction and pulmonary hypertension. She was seen by the hvac installer after troponin had a slight elevation and EKG abnormalities which could have been consistent with acute ischemic change. Dr. Diaz reviewed her stress test and echo with her in detail. He and we have talked to her about risk factor modification. We also talked to her about the possibility of false negative on the stress test and that she should return to medical care with any symptoms that concern her. We recommend that she see cardiology within the week after discharge. (4) Hypercalcemia Is this a current diagnosis for this admission?: Yes Summary: Slightly elevated at 10.3 on admission. After fluid hydration calcium returned to normal. (5) Hypertension Is this a current diagnosis for this admission?: Yes Summary: In the hospital blood pressure has been well controlled over the past day on Norvasc 5 mg daily and metoprolol 25 mg p.o. twice daily. These will be her discharge antihypertensives. She is advised to see her new PCP within the week. (6) Leukocytosis Is this a current diagnosis for this admission?: Yes Summary: Multifactorial, inflammatory, no evidence of infection. Initially patient was on ceftriaxone for several days. Infectious diseases consultation was ordered and secondary to no strong evidence for an infection it was recommended that ceftriaxone be discontinued and so I have stopped that. Patient will not be discharged on she knows to return to medical care with her or any other signs of an infection. (7) Nausea and vomiting Is this a current diagnosis for this admission?: Yes Summary: Possibly gastroenteritis. Other etiologies are possible such as peptic ulcer disease though there is no evidence of GI bleeding. She is being discharged on a PPI and on Carafate and she is now able to eat and does not have any abdominal pain nausea or vomiting. She will also need to be checked for H. pylori. We recommend close follow-up with gastroenterology. (8) Heart failure with preserved ejection fraction Is this a current diagnosis for this admission?: Yes Summary: Seen on echocardiogram. Will work on blood pressure control with discharge on amlodipine 5 mg daily and metoprolol 25 mg p.o. every 12 hours. Recommend close follow-up with new primary care doctor and with cardiology. - Additional Information Resuscitation Status: Full Code Discharge Diet: As Tolerated, Cardiac Discharge Activity: Activity As Tolerated Prescriptions: Atorvastatin Calcium [Lipitor 80 mg Tablet] 80 mg PO QHS 30 Days #30 tablet Docusate Sodium [Colace 100 mg Capsule] 100 mg PO BID 30 Days #60 capsule Lansoprazole [Prevacid 30 mg Odt Tablet] 30 mg PO Q6AM 30 Days #30 tab.rap. Metoprolol Tartrate [Lopressor 25 mg Tablet] 25 mg PO Q12A 30 Days #60 tablet Psyllium Seed [Metamucil-Sf Powder 5.85 gm Packet] 1 packet PO DAILY 30 Days # 30 packet Sucralfate [Carafate 1 gm Tablet] 1 gm PO ACHS 7 Days #28 tablet Home Medications: Amlodipine Besylate [Norvasc 10 mg Tablet] 5 mg PO DAILY tablet 05/05/18 Aspirin [Aspirin 81 mg Chewable Tablet] 162 mg PO DAILY tab.chew 05/05/18 Atorvastatin Calcium [Lipitor 80 mg Tablet] 80 mg PO QHS 30 Days #30 tablet Docusate Sodium [Colace 100 mg Capsule] 100 mg PO BID 30 Days #60 capsule Flu Vacc [id number](6Mos Up)/Pf [Fluarix Adlt Quad Vac 0.5 ml Syr] 0.5 ml IM .DISCHARGE PRN syringe 05/05/18 Lansoprazole [Prevacid 30 mg Odt Tablet] 30 mg PO Q6AM 30 Days #30 tab.rap.dr Metoprolol Tartrate [Lopressor 25 mg Tablet] 25 mg PO Q12A 30 Days #60 tablet Psyllium Seed [Metamucil-Sf Powder 5.85 gm Packet] 1 packet PO DAILY 30 Days # 30 packet 05/05/18 Sucralfate [Carafate 1 gm Tablet] 1 gm PO ACHS 7 Days #28 tablet 05/05/18 History of Present Illness History of Present Illness: BRIANDA MCRAE is a 72 year old woman with a past medical history of hypertension. She presents with 12 hours of abdominal pain nausea vomiting and diarrhea without blood. She has had several episodes in the recent past with unclear diagnosis. In the emergency room she is found to have hypercalcemia, hyperglycemia, uncontrolled hypertension and constipation on CT abdomen pelvis. She denies chest pain though has had diaphoresis and shortness of breath. She is unable to identify alleviating or exacerbating factors aside from Phenergan and morphine. She denies new medications. Hospital Course Hospital Course: See problem list Physical Exam Vital Signs: Temp Pulse Resp BP Pulse Ox 98.0 F 84 16 115/71 98 05/05/18 12:59 05/05/18 12:59 05/05/18 12:59 05/05/18 12:59 05/05/18 12:59 Intake & Output 05/04/18 05/05/18 05/06/18 06:59 06:59 06:59 Intake Total 1951 570 Output Total 300 1 Balance 1651 569 Weight 66.1 kg 69.1 kg General appearance: PRESENT: no acute distress, cooperative, well-developed, well-nourished Head exam: PRESENT: atraumatic, normocephalic Eye exam: ABSENT: conjunctival injection, scleral icterus Ear exam: PRESENT: normal external ear exam Mouth exam: PRESENT: moist, neck supple Respiratory exam: PRESENT: clear to auscultation ceci, unlabored. ABSENT: rales , rhonchi, wheezes Cardiovascular exam: PRESENT: RRR. ABSENT: systolic murmur Pulses: PRESENT: normal radial pulses GI/Abdominal exam: PRESENT: normal bowel sounds, soft. ABSENT: distended, tenderness Rectal exam: PRESENT: deferred Gentrourinary exam: ABSENT: indwelling catheter Extremities exam: ABSENT: pedal edema Neurological exam: PRESENT: alert, awake, oriented to person, oriented to place , oriented to situation, CN II-XII grossly intact Psychiatric exam: PRESENT: appropriate affect. ABSENT: anxious Skin exam: PRESENT: dry, intact, warm Results Laboratory Results: 05/05/18 06:07 05/05/18 05/05/18 06:07 06:07 WBC 11.1 H RBC 4.68 Hgb 14.5 Hct 41.4 MCV 88 MCH 31.0 MCHC 35.0 RDW 12.6 Plt Count 196 Seg Neutrophils % 61.9 Lymphocytes % 27.1 Monocytes % 9.2 Eosinophils % 0.7 Basophils % 1.1 Absolute Neutrophils 6.8 Absolute Lymphocytes 3.0 Absolute Monocytes 1.0 Absolute Eosinophils 0.1 Absolute Basophils 0.1 Sodium 135.3 L Potassium 3.6 Chloride 102 Carbon Dioxide 23 Anion Gap 10 BUN 18 Creatinine 0.82 Est GFR ( Amer) > 60 Est GFR (Non-Af Amer) > 60 Glucose 124 H Calcium 9.8 05/02/18 05/02/18 05/03/18 01:47 08:00 04:55 CK-MB (CK-2) 1.19 1.01 Troponin I 0.031 0.046 0.026 Impressions: Acute Abdomen Series 05/01/18 14:32 IMPRESSION: NO RADIOGRAPHIC EVIDENCE FOR ACUTE ABDOMINAL DISEASE. Abdomen/Pelvis CT 05/01/18 17:39 IMPRESSION: 1. Mild diverticulosis coli. 2. Anterolisthesis of L3 on L4. 3. Possible small low-density gallstones. 4. No acute findings in the abdomen or pelvis. Chest/Abdomen CTA 05/03/18 00:00 IMPRESSION: 1. There is no evidence of pulmonary embolus. 2. Milk of calcium gallbladder. Qualifiers - * PATIENT BEING DISCHARGED WITH ANY OF THE FOLLOWING DIAGNOSIS: Heart Failure HF Pt being discharged on ACEI for LVEF less than 40%?: No Reason(s) for not prescribing ACEI:: Procedure not indicated HF Pt being discharged on ARBS for LVEF less than 40%?: No Reason(s) for not prescribing ARBS:: Procedure not indicated HF Pt with Afib discharged with Warfarin?: No Reason(s) for not prescribing Warfarin:: Procedure not indicated HF Pt discharged on evidence-based Beta Shila:: Yes Plan Time Spent: Greater than 30 Minutes
--- NOTE | 2018-05-05 14:10 | PDOC PROGRESS REPORT ---
Subjective Progress Note for:: 05/05/18 Subjective:: Patient seems to be doing better. Patient is expected to be discharged today. Complains of significant problems with sleep. Pt is denying any chest arm or neck discomfort. Patient denying any PND, orthopnea. Patient denied any sustained palpitations, dizziness, syncope, near syncope. Patient denying any fever chills. Patient denying any other significant discomfort. Patient is maintaining sinus rhythm. Review of systems: Rest review of systems negative. Medications: Medications have been reviewed. Reason For Visit: CHEST AND ABD PAIN, HTN Physical Exam Vital Signs: Temp Pulse Resp BP Pulse Ox 98.0 F 84 16 115/71 98 05/05/18 12:59 05/05/18 12:59 05/05/18 12:59 05/05/18 12:59 05/05/18 12:59 Intake & Output 05/04/18 05/05/18 05/06/18 06:59 06:59 06:59 Intake Total 1951 570 Output Total 300 1 Balance 1651 569 Weight 66.1 kg 69.1 kg Exam: GENERAL: well-nourished and in no acute distress. Alert and oriented x3 HEAD: Atraumatic, normocephalic. EYES: Pupils equal round and reactive to light, extraocular movements intact, sclera anicteric, conjunctiva are normal. ENT: TMs normal, nares patent, oropharynx clear without exudates. Moist mucous membranes. No oral ulcerations or bleeding gums noted NECK: supple without lymphadenopathy. Trachea is central. No cervical or axillary lymphadenopathy noted. Carotids are 2+, JVD WNL LUNGS: Respiration seems nonlabored, no significant accessory muscle action noted. Breath sounds clear to auscultation bilaterally and equal noted. No wheezes rales or rhonchi noted. No significant dullness noted on percussion. CHEST: Palpation of the chest wall shows no significant chest wall tenderness. HEART: [employer]LY[employer], No PSH, 1/6 MANUELA aortic area, 1/6 jones systolic murmur mitral area, no rubs, no gallops. ABDOMEN: Soft, no significant tenderness appreciated, normoactive bowel sounds. No guarding, no rebound. No rigidity noted . No masses appreciated. EXTREMITIES: Pedal pulses are 1-2+, no calf tenderness noted. No clubbing or cyanosis. negative pedal edema noted NEUROLOGICAL: Focused neurological exam showed no significant neurologic deficit. Normal speech, no focal weakness appreciated. PSYCH: Normal mood, normal affect. Judgment and insight within normal limits. SKIN: No significant ecchymosis, skin is noted to be warm. MUSCULOSKELETAL EXAM: No significant acute joint swelling noted. Results Laboratory Results: 05/05/18 06:07 05/05/18 12:43 05/05/18 05/05/18 05/05/18 06:07 06:07 12:43 WBC 11.1 H RBC 4.68 Hgb 14.5 Hct 41.4 MCV 88 MCH 31.0 MCHC 35.0 RDW 12.6 Plt Count 196 Seg Neutrophils % 61.9 Lymphocytes % 27.1 Monocytes % 9.2 Eosinophils % 0.7 Basophils % 1.1 Absolute Neutrophils 6.8 Absolute Lymphocytes 3.0 Absolute Monocytes 1.0 Absolute Eosinophils 0.1 Absolute Basophils 0.1 Sodium 135.3 L 136.2 L Potassium 3.6 3.8 Chloride 102 100 Carbon Dioxide 23 25 Anion Gap 10 11 BUN 18 26 H Creatinine 0.82 1.20 Est GFR ( Amer) > 60 53 L Est GFR (Non-Af Amer) > 60 44 L Glucose 124 H 101 Calcium 9.8 9.6 05/02/18 05/02/18 05/03/18 01:47 08:00 04:55 CK-MB (CK-2) 1.19 1.01 Troponin I 0.031 0.046 0.026 EKG Comments: Telemetry shows sinus rhythm without any sustained tachycardia or bradycardia Impressions: Acute Abdomen Series 05/01/18 14:32 IMPRESSION: NO RADIOGRAPHIC EVIDENCE FOR ACUTE ABDOMINAL DISEASE. Abdomen/Pelvis CT 05/01/18 17:39 IMPRESSION: 1. Mild diverticulosis coli. 2. Anterolisthesis of L3 on L4. 3. Possible small low-density gallstones. 4. No acute findings in the abdomen or pelvis. Chest/Abdomen CTA 05/03/18 00:00 IMPRESSION: 1. There is no evidence of pulmonary embolus. 2. Milk of calcium gallbladder. Assessment & Plan - Diagnosis (1) Elevated troponin I level Is this a current diagnosis for this admission?: Yes (2) Abdominal pain Qualifiers: Abdominal location: left lower quadrant Qualified Code(s): R10.32 - Left lower quadrant pain Is this a current diagnosis for this admission?: Yes (3) Abnormal electrocardiogram Is this a current diagnosis for this admission?: Yes (4) Hypercalcemia Is this a current diagnosis for this admission?: Yes (5) Hyperglycemia Is this a current diagnosis for this admission?: Yes (6) Hypertension Qualifiers: Hypertension type: essential hypertension Qualified Code(s): I10 - Essential (primary) hypertension Is this a current diagnosis for this admission?: Yes - Notes Notes: Abnormal electrocardiogram: Possibly related to LVH. Cardiac evaluation results were again reviewed with the patient. Elevated troponin I: Probably not significant in this lady with abdominal discomfort, nausea and vomiting as well as mild renal dysfunction and hyperglycemia. Continue to observe for any continued elevation. If patient has any chest pain, further evaluation with heart catheterization will be considered at that time. Hypertension: Blood pressure under satisfactory control. Continue home medications. Abdominal pain: This is being evaluated by the hospitalist. Hypercalcemia: Exact etiology not clear, this is being evaluated by hospitalist. Hyperglycemia: Patient being monitored closely for any diabetes. Blood sugar coming under better control. Nuclear stress test results were reviewed. No significant ischemia noted. 2D echocardiogram to be reviewed. Sleep disorder: Patient has significant problems with insomnia and may also have underlying sleep apnea syndrome. Discussed that she may benefit from a sleep symptom evaluation with a sleep medicine specialist. - Time Time with patient: Greater than 35 minutes - More than 50% of the time spent coordinating care, discussing management plans with involved caregivers. Management plans discussed with involved personnels. Medical decision making was of moderate to high complexity, patient's has multiple comorbidities. Medications reviewed and adjusted accordingly: Yes
[2018-05-06] MEDS ORDERED: LANSOPRAZOLE 30 MG TAB.RAP.DR PO SCH (06:00)
== END 2018-05-05 14:00 | disposition home or self-care (01) | DRG 392 ==
LOC: ER 14:08 → OBSVTOIN 20:37 → EH 20:37 → UNDOADMOB 20:40 → INTOOBSV 20:40 → OBSVTOIN 20:40 → EH 20:40 → 5 22:18 → EH 22:18
PROVIDERS: ADMIT Internal Medicine; ATTEND Internal Medicine
DX: K21.9 Gastro-esophageal reflux disease without esophagitis (principal); I11.0 Hypertensive heart disease with heart failure; I50.9 Heart failure, unspecified; I25.10 Atherosclerotic heart disease of native coronary artery without angina pectoris; R73.9 Hyperglycemia, unspecified; E83.52 Hypercalcemia; I45.81 Long QT syndrome; K59.00 Constipation, unspecified; R79.89 Other specified abnormal findings of blood chemistry; D72.829 Elevated white blood cell count, unspecified; M48.00 Spinal stenosis, site unspecified; G47.9 Sleep disorder, unspecified
CPT/HCPCS: 36415; 71275; 74022; 74177; 78452; 80048; 80053; 80061; 81001; 82553; 83036; 83690; 83735; 84443; 84484; 85025; 93005; 93010; 93017; 93306; 96361; 96374; 96375; 96376; 99285; A9500; G0378; J0360; J0696; J1650; J1940; J2060; J2270; J2550; J2785; J3480; J3490; J7030; J7120; Q9969; S0119; S0164

== ENCOUNTER 2018-05-08 11:31 | Emergency (ER) | payer MEDICARE ==
--- NOTE | 2018-05-08 11:39 | ER Document Report ---
ED General - General Stated Complaint: NAUSEA Time Seen by Provider: 05/08/18 11:37 Notes: Patient is a 72-year-old female that presents to the emergency department for chief complaint of nausea and vomiting. Patient states she has been feeling rather nauseous and had multiple episodes of vomiting since this morning, to the point where EMS was called, she was given Zofran in the ambulance, as well as some Benadryl, but she is still feeling quite nauseous, and have a left upper quadrant abdominal pain. She said the symptoms in the past, it seemed all started about a year ago when she was living in [place] and she only recently moved here 2 weeks ago. She did have an endoscopy done at that time, was placed on Protonix, but after she finished 30 days worth, her symptoms seemed to worsen and return. She was admitted to the hospital and discharged this past Monday, for the same symptoms, she had multiple imaging studies, and a stress test on her heart, which came back negative. She currently rates her pain as a 6 out of 10 aching sensation in her left upper quadrant, that is constant in nature. Past Medical History: Hypertension Past Surgical History: Hysterectomy Social History: Denies tobacco, alcohol or drug use Family History: Reviewed and noncontributory for presenting illness Allergies: Reviewed, see documented allergy list. REVIEW OF SYSTEMS: Unless otherwise stated in this report the patient's positive and negative responses for review of systems for constitutional, eyes, ENT, cardiovascular, respiratory, gastrointestinal, neurological, genitourinary, musculoskeletal, and integumentary systems and related systems to the presenting problem are either as stated in the HPI or were not pertinent or were negative for the symptoms and/or complaints related to the presenting medical problem. PHYSICAL EXAMINATION: Vital signs reviewed, nursing noted reviewed. GENERAL: Well-appearing, well-nourished and in no acute distress. HEAD: Atraumatic, normocephalic. EYES: Eyes appear normal, extraocular movements intact, sclera anicteric, conjunctiva are normal. ENT: nares patent, oropharynx clear without exudates. Moist mucous membranes. NECK: Normal range of motion, supple without lymphadenopathy LUNGS: Breath sounds clear to auscultation bilaterally and equal. No wheezes rales or rhonchi. HEART: Regular rate and rhythm without murmurs ABDOMEN: Soft, mild epigastric and left upper quadrant tenderness with palpation , normoactive bowel sounds. No rebound, guarding, or rigidity. No masses appreciated. EXTREMITIES: Nontender, good range of motion, no pitting or edema. NEUROLOGICAL: No focal neurological deficits. Moves all extremities spontaneously Motor and sensory grossly intact on exam. PSYCH: Normal mood, normal affect. SKIN: Warm, Dry, normal turgor, no rashes or lesions noted on exposed skin TRAVEL OUTSIDE OF THE [place] IN LAST 30 DAYS: No - Related Data Allergies/Adverse Reactions: No Known Allergies Allergy (Verified 05/08/18 11:42) Past Medical History - Social History Smoking Status: Never Smoker Family History: Hypertension - Past Medical History Cardiac Medical History: Reports: Hx Hypertension Renal/ Medical History: Denies: Hx Peritoneal Dialysis Physical Exam - Vital signs Vitals: BP 156/111 H 05/08/18 11:37 Course - Re-evaluation Re-evalutation: Patient seen and examined vital signs reviewed. Laboratory data and imaging were ordered as appropriate for the patient's presenting symptoms and complaint, with consideration of any critical or life threatening conditions that may be associated with their obtained history and exam as noted above. Patient was treated with IV fluids, Zofran and Protonix Results were reviewed when available and demonstrated mild hypokalemia, the rest of her blood work was essentially unremarkable, she did have a mild leukocytosis, which I would attribute to the patient's vomiting, no evidence of acute infection Patient's blood pressure was noted to be markedly elevated, she was not complaining of any headache or chest pain, I did treat this with 10 mg of IV hydralazine, as the patient thinks she may have vomited up her home p.o. blood pressure medications, she is advised that she needs to continue taking these medications at home The patient was re-evaluated and was still having some nausea, therefore she was given 12 and half milligrams of IV Phenergan, she was offered a GI cocktail , but declined this, she was also offered oral potassium supplementation, but declined this as well. Evaluation was most consistent with nausea and vomiting and upper abdominal pain , likely gastritis, I discussed this with the information analyst on-call Dr. Hinton, who agreed with plan of care to provide the patient Protonix, and antiemetics and have them follow-up with him in the office. Results were discussed with the patient at this point, after careful consideration I feel that that patient can be discharged from the emergency department, the patient was educated treatments and reasons to return to the emergency department based on their presumed diagnosis as noted above, they were advised to followup with a primary care physician in 2-3 days. Patient was agreeable to plan of care. *Note is created using voice recognition software and may contain spelling, syntax or grammatical errors. Laboratory 05/08/18 05/08/18 05/08/18 11:28 12:16 12:16 WBC 11.3 H RBC 4.36 Hgb 13.8 Hct 38.8 MCV 89 MCH 31.7 MCHC 35.7 RDW 12.5 Plt Count 199 Seg Neutrophils % 86.1 H Lymphocytes % 7.1 L Monocytes % 6.0 Eosinophils % 0.3 Basophils % 0.5 Absolute Neutrophils 9.7 H Absolute Lymphocytes 0.8 Absolute Monocytes 0.7 Absolute Eosinophils 0.0 Absolute Basophils 0.1 Sodium 140.4 Potassium 3.2 L Chloride 104 Carbon Dioxide 25 Anion Gap 11 BUN 25 H Creatinine 1.02 Est GFR ( Amer) > 60 Est GFR (Non-Af Amer) 53 L Glucose 150 H Calcium 9.2 Total Bilirubin 0.6 Direct Bilirubin 0.3 Neonat Total Bilirubin Not Reportable Neonat Direct Bilirubin Not Reportable Neonat Indirect Bili Not Reportable AST 30 ALT 38 Alkaline Phosphatase 91 Creatine Kinase 79 Troponin I Total Protein 7.6 Albumin 4.2 Lipase 179.6 Urine Color COLORLESS Urine Appearance CLEAR Urine pH 7.0 Ur Specific [place] 1.006 Urine Protein NEGATIVE Urine Glucose (UA) 150 H Urine Ketones NEGATIVE Urine Blood NEGATIVE Urine Nitrite NEGATIVE Urine Bilirubin NEGATIVE Urine Urobilinogen NEGATIVE Ur Leukocyte Esterase SMALL H Urine WBC (Auto) 3 Urine RBC (Auto) 4 Squamous Epi Cells Auto <1 Urine Mucus (Auto) RARE Urine Ascorbic Acid NEGATIVE 05/08/18 12:16 WBC RBC Hgb Hct MCV MCH MCHC RDW Plt Count Seg Neutrophils % Lymphocytes % Monocytes % Eosinophils % Basophils % Absolute Neutrophils Absolute Lymphocytes Absolute Monocytes Absolute Eosinophils Absolute Basophils Sodium Potassium Chloride Carbon Dioxide Anion Gap BUN Creatinine Est GFR ( Amer) Est GFR (Non-Af Amer) Glucose Calcium Total Bilirubin Direct Bilirubin Neonat Total Bilirubin Neonat Direct Bilirubin Neonat Indirect Bili AST ALT Alkaline Phosphatase Creatine Kinase Troponin I < 0.012 Total Protein Albumin Lipase Urine Color Urine Appearance Urine pH Ur Specific [place] Urine Protein Urine Glucose (UA) Urine Ketones Urine Blood Urine Nitrite Urine Bilirubin Urine Urobilinogen Ur Leukocyte Esterase Urine WBC (Auto) Urine RBC (Auto) Squamous Epi Cells Auto Urine Mucus (Auto) Urine Ascorbic Acid - Vital Signs Vital signs: Temp Pulse Resp BP Pulse Ox 97.4 F 84 16 185/94 H 97 05/08/18 11:40 05/08/18 13:20 05/08/18 15:01 05/08/18 15:01 05/08/18 15:01 - Laboratory Result Diagrams: 05/08/18 12:16 05/08/18 12:16 Laboratory results interpreted by me: 05/08/18 05/08/18 05/08/18 11:28 12:16 12:16 WBC 11.3 H Seg Neutrophils % 86.1 H Lymphocytes % 7.1 L Absolute Neutrophils 9.7 H Potassium 3.2 L BUN 25 H Est GFR (Non-Af Amer) 53 L Glucose 150 H Urine Glucose (UA) 150 H Ur Leukocyte Esterase SMALL H - EKG Interpretation by Me Additional EKG results interpreted by me: EKG demonstrates sinus arrhythmia with a ventricular rate of 70 bpm, QTC 479 ms , no evidence of acute ischemia in this EKG, this compared with prior EKG from 05/01/2018, without significant change. Discharge - Discharge Clinical Impression: Nausea and vomiting Qualifiers: Vomiting type: unspecified Vomiting Intractability: non-intractable Qualified Code(s): R11.2 - Nausea with vomiting, unspecified Hypertension Qualifiers: Hypertension type: unspecified Qualified Code(s): I10 - Essential (primary) hypertension Abdominal pain Qualifiers: Abdominal location: left upper quadrant Qualified Code(s): R10.12 - Left upper quadrant pain Condition: Stable Disposition: HOME, SELF-CARE Instructions: Antinausea Medication ([facility]), Vomiting ([facility]) Additional Instructions: Please follow-up with Dr. Hinton, I did discuss your case with him, and he is aware, and agrees with starting him on Protonix again, and an anti-nausea medication, please call his office to schedule follow-up appointment. If your symptoms worsen or do not improve, despite medication prescribed, do not hesitate to return to the emergency department. Prescriptions: Pantoprazole Sodium [Protonix] 40 mg PO DAILY #30 tablet. Promethazine HCl [Phenergan 25 mg Tablet] 1 tab PO Q6H PRN #15 tablet PRN Reason: Referrals: SARA HINTON MD [ACTIVE STAFF] - Follow up tomorrow (call for appointment. ) KERRY JOE MD [COMMUNITY BASED STAFF] - Follow up in 3-5 days (primary care. )
[2018-05-08] MEDS ORDERED: NORMAL SALINE 500 ML IV ONE (11:52)
[2018-05-08] MEDS ORDERED: ONDANSETRON 4 MG TAB.RAPDIS PO ONE (11:52)
[2018-05-08] MEDS ORDERED: PANTOPRAZOLE SODIUM 40 MG VIAL IV ONE (11:52)
[2018-05-08] MEDS ORDERED: ONDANSETRON HCL INJ/PF 4 MG/2 ML SDV IV ONE (11:59)
[2018-05-08 12:12] LABS: APPEARANCE,URINE CLEAR; BILIRUBIN,URINE NEGATIVE (NEGATIVE); COLOR,URINE COLORLESS; GLUCOSE, URINE 150 mg/dL (NEGATIVE); KETONES,URINE NEGATIVE (NEGATIVE); LEUKOCYTE ESTERASE,URINE SMALL (NEGATIVE); NITRITE,URINE NEGATIVE (NEGATIVE); PROTEIN,URINE NEGATIVE (NEGATIVE); URINE SPECIFIC GRAVITY 1.006; UROBILINOGEN,URINE NEGATIVE mg/dL (<2.0)
[2018-05-08 12:38] LABS: ABSOLUTE BASOPHILS # (AUTO) 0.1 10^3/uL (0.0-0.2); ABSOLUTE LYMPHOCYTES (AUTO) 0.8 10^3/uL (0.5-4.7); ABSOLUTE MONOCYTES (AUTO) 0.7 10^3/uL (0.1-1.4); ABSOLUTE NEUT (AUTO) 9.7 10^3/uL (1.7-8.2); BASOPHILS % (AUTO) 0.5 % (0-2); EOSINOPHILS % (AUTO) 0.3 % (0-6); HEMATOCRIT 38.8 % (36.0-47.0); HEMOGLOBIN 13.8 g/dL (12.0-15.5); LYMPHOCYTES % (AUTO) 7.1 % (13-45); MEAN CORPUSCULAR HEMOGLOBIN 31.7 pg (27.0-33.4); MEAN CORPUSCULAR HGB CONC 35.7 g/dL (32.0-36.0); MEAN CORPUSCULAR VOLUME 89 fl (80-97); PLATELET COUNT 199 10^3/uL (150-450); RED BLOOD COUNT 4.36 10^6/uL (3.72-5.28); RED CELL DISTRIBUTION WIDTH 12.5 % (11.5-14.0); SEGMENTED NEUTROPHILS % (AUTO) 86.1 % (42-78); TOTAL CELLS COUNTED % (AUTO) 100 %; WHITE BLOOD COUNT 11.3 10^3/uL (4.0-10.5)
[2018-05-08] MEDS ORDERED: HYDRALAZINE HCL INJ/PF 20 MG/1 ML SDV IV ONE (13:01)
--- NOTE | 2018-05-08 13:05 | EKG REPORT ---
SEVERITY:- ABNORMAL ECG - NSR WITH PACS NONSPECIFIC INTRAVENTRICULAR CONDUCTION DELAY LEFT VENTRICULAR HYPERTROPHY : Confirmed by: Juventino Sy MD 08-May-2018 13:04:18
[2018-05-08 13:11] LABS: ALANINE AMINOTRANSFERASE 38 U/L (9-52); ALBUMIN 4.2 g/dL (3.5-5.0); ALKALINE PHOSPHATASE 91 U/L (38-126); ANION GAP 11 (5-19); ASPARTATE AMINO TRANSFERASE 30 U/L (14-36); BILIRUBIN,DIRECT 0.3 mg/dL (0.0-0.4); BILIRUBIN,TOTAL 0.6 mg/dL (0.2-1.3); BLOOD UREA NITROGEN 25 mg/dL (7-20); CALCIUM 9.2 mg/dL (8.4-10.2); CARBON DIOXIDE 25 mmol/L (22-30); CHLORIDE 104 mmol/L (98-107); CREATINE KINASE 79 U/L (30-135); GLUCOSE 150 mg/dL (75-110); LIPASE 179.6 U/L (23-300); POTASSIUM 3.2 mmol/L (3.6-5.0); SODIUM 140.4 mmol/L (137-145); TOTAL PROTEIN 7.6 g/dL (6.3-8.2)
[2018-05-08] MEDS ORDERED: POTASSIUM CHLORIDE 10 MEQ CAPSULE.ER PO ONE (13:29)
[2018-05-08] MEDS ORDERED: PROMETHAZINE HCL INJ 25 MG/1 ML VIAL IV ONE (13:40)
[2018-05-08] MEDS ORDERED: HYDROMORPHONE HCL INJ/PF 2 MG/ML AMPULE IV ONE (15:18)
[2018-05-08 16:12] VITALS: BP 181/93
== END 2018-05-08 16:15 | disposition home or self-care (01) ==
LOC: ER 11:31
DX: R11.2 Nausea with vomiting, unspecified (principal); R10.12 Left upper quadrant pain; R10.812 Left upper quadrant abdominal tenderness; R10.816 Epigastric abdominal tenderness; E87.6 Hypokalemia; I10 Essential (primary) hypertension; Z79.899 Other long term (current) drug therapy
CPT/HCPCS: 93005; 99284; 96374; 96375; 36415; 82550; 83690; 85025; 80053; 81001; 84484; 93010; J0360; J1170; C9113; J2550; J2405; J7040; A9270; S0164

== ENCOUNTER 2018-05-13 19:04 | Inpatient (IN) | payer MEDICARE ==
[2018-05-13] MEDS ORDERED: HALOPERIDOL LACTATE INJ 5 MG/1 ML VIAL IV ONE (19:23)
[2018-05-13] MEDS ORDERED: FAMOTIDINE INJ/PF 20 MG/2 ML SDV IV ONE (19:23)
[2018-05-13] MEDS ORDERED: METOCLOPRAMIDE HCL ORAL SOLN 10 MG/10 ML UDCUP PO ONE (19:24)
[2018-05-13] MEDS ORDERED: LIDOCAINE 2% VISCOUS SOLN 20 ML UDCUP PO ONE (19:24)
[2018-05-13] MEDS ORDERED: RINGERS SOLUTION,LACTATED 1,000 ML IV ONE (19:24)
[2018-05-13] MEDS ORDERED: MAG HYDROX/AL HYDROX/SIMETH SUSP 30 ML UDCUP PO ONE (19:24)
--- NOTE | 2018-05-13 19:30 | ER Document Report ---
ED Medical Screen (RME) - General Chief Complaint: Abdominal Pain Stated Complaint: ABDOMINAL PAIN Time Seen by Provider: 05/13/18 19:22 Mode of Arrival: Wheelchair Information source: Patient, Parent, Relative TRAVEL OUTSIDE OF THE U[place] IN LAST 30 DAYS: No - HPI Patient complains to provider of: Abdominal pain Onset: Other - This is a 72-year-old female with a history of chronic abdominal pain and recurrent reflux symptoms that prompted her to seek evaluation by a remote operations producer who currently has her scheduled tomorrow to undergo upper and lower endoscopy and colonoscopy. Today she has been having recurrent episodes of vomiting with pain. There is a horrible burning in her stomach. - Related Data Allergies/Adverse Reactions: No Known Allergies Allergy (Verified 05/13/18 19:21) Past Medical History - Social History Chew tobacco use (# tins/day): No Frequency of alcohol use: None Drug Abuse: None - Past Medical History Cardiac Medical History: Reports: Hx Hypertension Renal/ Medical History: Denies: Hx Peritoneal Dialysis Physical Exam - Vital signs Vitals: Temp Pulse Resp BP Pulse Ox 99.0 F 89 18 188/88 H 100 05/13/18 19:12 05/13/18 19:12 05/13/18 19:12 05/13/18 19:12 05/13/18 19:12 Course - Re-evaluation Re-evalutation: 05/13/18 19:30 This 72-year-old female presents for repeat evaluation of recurrent abdominal pain with vomiting. She has been seen by GI and is scheduled for a colonoscopy and endoscopy tomorrow. Says the pain is too bad. We will initiate treatment for her pain, will obtain labs, I performed rapid screening examination on this patient. She will require further examination and disposition determination by a second provider. - Vital Signs Vital signs: Temp Pulse Resp BP Pulse Ox 99.0 F 89 18 188/88 H 100 05/13/18 19:12 05/13/18 19:12 05/13/18 19:12 05/13/18 19:12 05/13/18 19:12
[2018-05-13 19:58] LABS: HEMATOCRIT 41.8 % (36.0-47.0); HEMOGLOBIN 14.9 g/dL (12.0-15.5); MEAN CORPUSCULAR HEMOGLOBIN 30.8 pg (27.0-33.4); MEAN CORPUSCULAR HGB CONC 35.6 g/dL (32.0-36.0); MEAN CORPUSCULAR VOLUME 87 fl (80-97); PLATELET COUNT 345 10^3/uL (150-450); RED BLOOD COUNT 4.83 10^6/uL (3.72-5.28); RED CELL DISTRIBUTION WIDTH 12.8 % (11.5-14.0); WHITE BLOOD COUNT 21.1 10^3/uL (4.0-10.5)
[2018-05-13 20:19] LABS: ABSOLUTE LYMPHOCYTES# (MANUAL) 1.7 10^3/uL (0.5-4.7); ABSOLUTE MONOCYTES # (MANUAL) 0.2 10^3/uL (0.1-1.4); ABSOLUTE NEUTROPHILS# (MANUAL) 19.2 10^3/uL (1.7-8.2); BASOPHILS % (MANUAL) 0 % (0-2); EOSINOPHILS % (MANUAL) 0 % (0-6); LYMPHOCYTES % (MANUAL) 8 % (13-45); MONOCYTES % (MANUAL) 1 % (3-13); SEGMENTED NEUTROPHILS % (MAN) 91 % (42-78); TOTAL CELLS COUNTED 100
[2018-05-13 20:25] LABS: BURR CELLS SLIGHT; PLATELET COMMENT ADEQUATE; POIKILOCYTOSIS SLIGHT; TEAR DROP CELLS SLIGHT; TOXIC GRANULATION 1+; TOXIC VACUOLATION PRESENT
--- NOTE | 2018-05-13 20:50 | RADIOLOGY REPORT (SQ) ---
EXAM DESCRIPTION: CHEST SINGLE VIEW COMPLETED DATE/TIME: 05/13/2018 8:28 pm REASON FOR STUDY: bad pain top of abdomen COMPARISON: Chest CT 05/03/2018 EXAM PARAMETERS: NUMBER OF VIEWS: One view. TECHNIQUE: Single frontal radiographic view of the chest acquired. RADIATION DOSE: NA LIMITATIONS: None. FINDINGS: LUNGS AND PLEURA: Lingular scar. No focal consolidation, masses or pneumothorax. No pleur al effusion. MEDIASTINUM AND HILAR STRUCTURES: No masses. Contour normal. HEART AND VASCULAR STRUCTURES: Heart normal in size. Normal vasculature. BONES: No acute findings. HARDWARE: None in the chest. OTHER: No other significant finding. IMPRESSION: NO ACUTE RADIOGRAPHIC FINDING IN THE CHEST. TECHNICAL DOCUMENTATION: JOB ID: [id number] [employer]- All Rights Reserved Reading location - IP/workstation name: [email or web address]
[2018-05-13 21:16] LABS: ALANINE AMINOTRANSFERASE 24 U/L (9-52); ALBUMIN 4.8 g/dL (3.5-5.0); ALKALINE PHOSPHATASE 89 U/L (38-126); ANION GAP 16 (5-19); ASPARTATE AMINO TRANSFERASE 30 U/L (14-36); BILIRUBIN,DIRECT 0.2 mg/dL (0.0-0.4); BILIRUBIN,TOTAL 0.6 mg/dL (0.2-1.3); BLOOD UREA NITROGEN 37 mg/dL (7-20); CALCIUM 9.9 mg/dL (8.4-10.2); CARBON DIOXIDE 27 mmol/L (22-30); CHLORIDE 94 mmol/L (98-107); GLUCOSE 157 mg/dL (75-110); LIPASE 226.8 U/L (23-300); SODIUM 137.4 mmol/L (137-145); TOTAL PROTEIN 8.4 g/dL (6.3-8.2)
[2018-05-13 21:20] LABS: POTASSIUM 2.9 mmol/L (3.6-5.0)
--- NOTE | 2018-05-13 22:05 | ER Document Report ---
ED General - General Chief Complaint: Abdominal Pain Stated Complaint: ABDOMINAL PAIN Time Seen by Provider: 05/13/18 19:22 Mode of Arrival: Wheelchair Notes: 72-year-old patient female to the emergency department for evaluation. Patient states that she was having some nausea vomiting abdominal pain. Was supposed to have a colonoscopy and upper endoscopy in the morning. Began her bowel prep but has not been able to keep anything down. Has been having diarrhea as well. Currently the symptoms have been on and off though for quite some time. Has been seen in the emergency department multiple times for same. TRAVEL OUTSIDE OF THE [place] IN LAST 30 DAYS: No - HPI Onset: Just prior to arrival Onset/Duration: Better Quality of pain: Achy Severity: Moderate Pain Level: 2 - Related Data Allergies/Adverse Reactions: No Known Allergies Allergy (Verified 05/13/18 19:21) Past Medical History - General Information source: Patient, Parent, Relative - Social History Smoking Status: Never Smoker Chew tobacco use (# tins/day): No Frequency of alcohol use: None Drug Abuse: None Lives with: Family Family History: Hypertension Patient has suicidal ideation: No Patient has homicidal ideation: No - Past Medical History Cardiac Medical History: Reports: Hx Hypertension Renal/ Medical History: Denies: Hx Peritoneal Dialysis Review of Systems - Review of Systems Notes: Constitutional: denies: Chills, Diaphoresis, Fever, Malaise, Weakness EENT: denies: Eye discharge, Blurred vision, Tearing, Double vision, Nose congestion, Nose discharge, Throat swelling, Mouth pain Cardiovascular: denies: Palpitations, Heart racing, Orthopnea, Dyspnea, Chest pain Respiratory: denies: Cough, Hurts to breathe, Wheezing, Shortness of breath Gastrointestinal: Abdominal pain with nausea vomiting and diarrhea Genitourinary: denies: Burning, Dysuria, Discharge, Frequency, Flank pain, Hematuria Musculoskeletal: denies: Joint pain, Joint swelling, Muscle pain, Muscle stiffness, back pain Hematologic/Lymphatic: denies: Anemia, Easy bleeding, Easy bruising, Blood clots Neurological/Psychological: denies: Confusion, Dementia, Depression, Loss of consciousness Skin: No lesions, no masses, no skin breakdown, no abscesses Physical Exam - Vital signs Vitals: Temp Pulse Resp BP Pulse Ox 99.0 F 89 18 188/88 H 100 05/13/18 19:12 05/13/18 19:12 05/13/18 19:12 05/13/18 19:12 05/13/18 19:12 Interpretation: Hypertensive - General General appearance: Appears well, Alert - HEENT Head: Normocephalic, Atraumatic Eyes: Normal Pupils: PERRL - Respiratory Respiratory status: No respiratory distress Chest status: Nontender Breath sounds: Normal Chest palpation: Normal - Cardiovascular Rhythm: Regular Heart sounds: Normal auscultation Murmur: No - Abdominal Inspection: Normal Distension: No distension Bowel sounds: Normal Tenderness: Nontender Organomegaly: No organomegaly - Back Back: Normal, Nontender - Extremities General upper extremity: Normal inspection, Nontender, Normal color, Normal ROM , Normal temperature General lower extremity: Normal inspection, Nontender, Normal color, Normal ROM , Normal temperature, Normal weight bearing. No: Hollis's sign - Neurological Neuro grossly intact: Yes Cognition: Normal Orientation: AAOx4 Diaz Coma Scale Eye Opening: Spontaneous Diaz Coma Scale Verbal: Oriented Diaz Coma Scale Motor: Obeys Commands [place] Coma Scale Total: 15 Speech: Normal Motor strength normal: LUE, RUE, LLE, RLE Sensory: Normal - Psychological Associated symptoms: Normal affect, Normal mood - Skin Skin Temperature: Warm Skin Moisture: Dry Skin Color: Normal Course - Re-evaluation Re-evalutation: 05/13/18 22:51 Initial labs showed a WBC count of 21,000. Patient always has elevated WBC count but patient does not know why. Seems to have poor fund of knowledge of what is going on. I will re-CT scan her even though she has had a recent CT scan. Patient is receiving IV fluids. The labs are remarkable for other electrolyte abnormalities so I am going to repeat these before getting too concerned about treatment however if these labs are actually accurate then she will more than likely need to be admitted. 05/13/18 22:52 Laboratory 05/13/18 05/13/18 05/13/18 19:39 19:39 20:40 WBC 21.1 H RBC 4.83 Hgb 14.9 Hct 41.8 MCV 87 MCH 30.8 MCHC 35.6 RDW 12.8 Plt Count 345 Total Counted 100 Seg Neutrophils % Not Reportable Seg Neuts % (Manual) 91 H Lymphocytes % Not Reportable Lymphocytes % (Manual) 8 L Monocytes % Not Reportable Monocytes % (Manual) 1 L Eosinophils % Not Reportable Eosinophils % (Manual) 0 Basophils % Not Reportable Basophils % (Manual) 0 Absolute Neutrophils Not Reportable Abs Neuts (Manual) 19.2 H Absolute Lymphocytes Not Reportable Abs Lymphs (Manual) 1.7 Absolute Monocytes Not Reportable Abs Monocytes (Manual) 0.2 Absolute Eosinophils Not Reportable Absolute Eos (Manual) 0.0 Absolute Basophils Not Reportable Abs Basophils (Manual) 0.0 Toxic Granulation 1+ Toxic Vacuolation PRESENT Platelet Comment ADEQUATE Poikilocytosis SLIGHT Tear Drop Cells SLIGHT Elisa Cells SLIGHT Sodium Cancelled 137.4 Potassium Cancelled 2.9 L* Chloride Cancelled 94 L Carbon Dioxide Cancelled 27 Anion Gap Cancelled 16 BUN Cancelled 37 H Creatinine Cancelled 1.72 H Est GFR ( Amer) Cancelled 35 L Est GFR (Non-Af Amer) Cancelled 29 L Glucose Cancelled 157 H Calcium Cancelled 9.9 Total Bilirubin Cancelled 0.6 Direct Bilirubin Cancelled 0.2 Neonat Total Bilirubin Cancelled Not Reportable Neonat Direct Bilirubin Cancelled Not Reportable Neonat Indirect Bili Cancelled Not Reportable AST Cancelled 30 ALT Cancelled 24 Alkaline Phosphatase Cancelled 89 Troponin I Total Protein Cancelled 8.4 H Albumin Cancelled 4.8 Lipase Cancelled 226.8 05/13/18 20:40 WBC RBC Hgb Hct MCV MCH MCHC RDW Plt Count Total Counted Seg Neutrophils % Seg Neuts % (Manual) Lymphocytes % Lymphocytes % (Manual) Monocytes % Monocytes % (Manual) Eosinophils % Eosinophils % (Manual) Basophils % Basophils % (Manual) Absolute Neutrophils Abs Neuts (Manual) Absolute Lymphocytes Abs Lymphs (Manual) Absolute Monocytes Abs Monocytes (Manual) Absolute Eosinophils Absolute Eos (Manual) Absolute Basophils Abs Basophils (Manual) Toxic Granulation Toxic Vacuolation Platelet Comment Poikilocytosis Tear Drop Cells [place] Cells Sodium Potassium Chloride Carbon Dioxide Anion Gap BUN Creatinine Est GFR ( Amer) Est GFR (Non-Af Amer) Glucose Calcium Total Bilirubin Direct Bilirubin Neonat Total Bilirubin Neonat Direct Bilirubin Neonat Indirect Bili AST ALT Alkaline Phosphatase Troponin I 0.053 Total Protein Albumin Lipase 05/13/18 22:53 Chest X-Ray 05/13/18 19:24 IMPRESSION: NO ACUTE RADIOGRAPHIC FINDING IN THE CHEST. Abdomen/Pelvis CT 05/13/18 22:07 IMPRESSION: No acute disease. No evidence for nephrolithiasis or urinary obstruction. No bowel obstruction. 05/14/18 00:10 The leukocytosis as well as hypokalemia and acute kidney injury to be real. Giving her fluids at this time. Complaining of some lower abdominal pain so giving her some Dilaudid. Have ordered blood cultures. Lactic acid slightly elevated but patient does not appear septic by any means. Does have hypertension. I have consulted with the hospitalist at this time. Patient needs to be admitted. Her troponin is slightly elevated however she has had a stress test done within the last 2 weeks and she did have mildly elevated cardiac troponin when she was in the hospital last time. Uncertain etiology and how to put all of this together at this time she definitely meets criteria for full admit. Consult with hospitalist. Will admit at this time. - Vital Signs Vital signs: Temp Pulse Resp BP Pulse Ox 99.0 F 89 18 188/88 H 100 05/13/18 19:12 05/13/18 19:12 05/13/18 19:12 05/13/18 19:12 05/13/18 19:12 - Laboratory Result Diagrams: 05/13/18 22:42 05/13/18 23:20 Laboratory results interpreted by me: 05/13/18 05/13/18 05/13/18 19:39 20:40 22:42 WBC 21.1 H 22.9 H Seg Neuts % (Manual) 91 H 87 H Lymphocytes % (Manual) 8 L 9 L Monocytes % (Manual) 1 L Abs Neuts (Manual) 19.2 H 19.9 H Potassium 2.9 L* Chloride 94 L BUN 37 H Creatinine 1.72 H Est GFR ( Amer) 35 L Est GFR (Non-Af Amer) 29 L Glucose 157 H Lactic Acid Total Protein 8.4 H Urine Glucose (UA) 05/13/18 05/13/18 05/13/18 22:42 23:20 23:37 WBC Seg Neuts % (Manual) Lymphocytes % (Manual) Monocytes % (Manual) Abs Neuts (Manual) Potassium 2.9 L* Chloride 95 L BUN 35 H Creatinine 1.46 H Est GFR ( Amer) 42 L Est GFR (Non-Af Amer) 35 L Glucose 145 H Lactic Acid 2.3 H Total Protein Urine Glucose (UA) 150 H - EKG Interpretation by Vt EKG shows normal: [place], Intervals, QRS Complexes, ST-T Waves Voltage: Consistant with [facility] Discharge - Discharge Clinical Impression: Dehydration, Acute kidney injury (nontraumatic) Leukocytosis Qualifiers: Leukocytosis type: unspecified Qualified Code(s): D72.829 - Elevated white blood cell count, unspecified Condition: Fair Disposition: ADMITTED INPATIENT Admitting Provider: [facility] Admitted: Telemetry Referrals: SARA HINTON MD [Primary Care Provider] - Follow up as needed
[2018-05-13] MEDS ORDERED: NORMAL SALINE 1000 ML 1,000 ML IV ONE (22:32)
--- NOTE | 2018-05-13 22:46 | RADIOLOGY REPORT (SQ) ---
EXAM DESCRIPTION: CT ABDOMEN PELVIS WITHOUT IV CONTRAST COMPLETED DATE/TME: 05/13/2018 22:07 CLINICAL HISTORY: 72 years, Female, nausea and vomiting and abd pain This exam was performed according to our departmental dose-optimization program which includes automated exposure control, adjustment of the mA and/or kVp according to patient size and/or use of iterative reconstruction technique where applicable. FINDINGS: Visualized lung bases are within normal limits. Liver, spleen, pancreas, gallbladder, adrenal glands and kidneys are within normal limits. No hydronephrosis or biliary dilatation. No dilated loops of bowel to suggest obstruction. There is no renal, ureteral or bladder calculus. Mild sigmoid colonic diverticulosis without CT evidence for acute diverticulitis. No dilated loops of bowel. No free fluid or free air. Bladder is unremarkable. No abdominal or pelvic lymphadenopathy. Abdominal aorta is moderately calcified without aneurysm. IMPRESSION: No acute disease. No evidence for nephrolithiasis or urinary obstruction. No bowel obstruction.
[2018-05-13 22:56] LABS: APPEARANCE,URINE CLEAR; BILIRUBIN,URINE NEGATIVE (NEGATIVE); COLOR,URINE COLORLESS; GLUCOSE, URINE 150 mg/dL (NEGATIVE); HEMATOCRIT 41.4 % (36.0-47.0); HEMOGLOBIN 14.8 g/dL (12.0-15.5); KETONES,URINE NEGATIVE (NEGATIVE); LEUKOCYTE ESTERASE,URINE NEGATIVE (NEGATIVE); MEAN CORPUSCULAR HEMOGLOBIN 31.4 pg (27.0-33.4); MEAN CORPUSCULAR HGB CONC 35.7 g/dL (32.0-36.0); MEAN CORPUSCULAR VOLUME 88 fl (80-97); NITRITE,URINE NEGATIVE (NEGATIVE); PLATELET COUNT 318 10^3/uL (150-450); PROTEIN,URINE NEGATIVE (NEGATIVE); RED BLOOD COUNT 4.71 10^6/uL (3.72-5.28); RED CELL DISTRIBUTION WIDTH 12.3 % (11.5-14.0); URINE SPECIFIC GRAVITY 1.008; UROBILINOGEN,URINE NEGATIVE mg/dL (<2.0); WHITE BLOOD COUNT 22.9 10^3/uL (4.0-10.5)
[2018-05-13 23:13] LABS: ABSOLUTE LYMPHOCYTES# (MANUAL) 2.1 10^3/uL (0.5-4.7); ABSOLUTE MONOCYTES # (MANUAL) 0.9 10^3/uL (0.1-1.4); ABSOLUTE NEUTROPHILS# (MANUAL) 19.9 10^3/uL (1.7-8.2); BASOPHILS % (MANUAL) 0 % (0-2); EOSINOPHILS % (MANUAL) 0 % (0-6); LYMPHOCYTES % (MANUAL) 9 % (13-45); MONOCYTES % (MANUAL) 4 % (3-13); SEGMENTED NEUTROPHILS % (MAN) 87 % (42-78); TOTAL CELLS COUNTED 100
[2018-05-13 23:18] LABS: BURR CELLS SLIGHT; OVALOCYTES SLIGHT; PLATELET COMMENT ADEQUATE; POIKILOCYTOSIS 1+; TEAR DROP CELLS 1+; TOXIC GRANULATION SLIGHT; TOXIC VACUOLATION PRESENT
[2018-05-13] MEDS ORDERED: HYDROMORPHONE HCL INJ/PF 2 MG/ML AMPULE IV ONE (23:42)
[2018-05-13 23:45] LABS: ANION GAP 18 (5-19); BLOOD UREA NITROGEN 35 mg/dL (7-20); CALCIUM 9.7 mg/dL (8.4-10.2); CARBON DIOXIDE 27 mmol/L (22-30); CHLORIDE 95 mmol/L (98-107); GLUCOSE 145 mg/dL (75-110); SODIUM 139.5 mmol/L (137-145)
[2018-05-13 23:49] LABS: POTASSIUM 2.9 mmol/L (3.6-5.0)
[2018-05-13] MEDS ORDERED: POTASSI CL 20 MEQ/50 ML RIDER 20 MEQ/50 ML RTUPB IV ONE (23:52)
[2018-05-13] MEDS ORDERED: POTASSIUM CHLORIDE 20 MEQ/15 ML UDCUP PO ONE (23:53)
[2018-05-14] MEDS ORDERED: PROMETHAZINE HCL INJ 25 MG/1 ML VIAL IV PRN (01:21)
[2018-05-14] MEDS ORDERED: OXYCODONE-ACETAMINOPHEN 5-325 MG TABLET PO PRN (01:21)
[2018-05-14] MEDS ORDERED: DEXTROSE 40% GEL 15 GM TUBE PO PRN ×2 (01:21)
[2018-05-14] MEDS ORDERED: PROMETHAZINE HCL 25 MG TABLET PO PRN (01:21)
[2018-05-14] MEDS ORDERED: MAG HYDROX/AL HYDROX/SIMETH SUSP 30 ML UDCUP PO PRN (01:21)
[2018-05-14] MEDS ORDERED: DEXTROSE 50%-WATER 25 GM/50 ML DISP.SYRIN IV PRN ×2 (01:21)
[2018-05-14] MEDS ORDERED: ACETAMINOPHEN 325 MG TABLET PO PRN (01:21)
[2018-05-14] MEDS ORDERED: GLUCAGON,HUMAN RECOMB 1 MG INJ SUBCUT PRN (01:21)
[2018-05-14] MEDS ORDERED: TEMAZEPAM 15 MG CAPSULE PO ONE (01:25)
[2018-05-14] MEDS ORDERED: METOPROLOL TARTRATE PF/INJ 5 MG/5 ML SDV IV PRN ×2 (02:14→21:03)
[2018-05-14] MEDS: NORMAL SALINE 1000 ML 1,000 ML IV PRN ×3 (02:23→17:01)
--- NOTE | 2018-05-14 02:45 | PDOC H&P ---
History of Present Illness Admission Date/PCP: 05/14/18 00:42 SARA HINTON MD Patient complains of: Nausea, vomiting and diarrhea History of Present Illness: BRIANDA MCRAE is a 72 year old female who comes to the emergency department with symptoms since Monday 7 AM in the morning, patient is planned for EGD and colonoscopy Monday to be done by Dr. Hinton and she was prescribed 3 pills of Dulcolax followed by magnesium [facility]. She tells me that after the Dulcolax she could eat a little bit but he started with persistent nausea and nonbloody vomiting x5, feels like her abdomen was contracted really hard, denies at least anxiety, had one episode of a large nonbloody diarrhea. Tells me she has been losing weight for the last 2 years from 177 pounds to 140 pounds unintentional. Patient has history of several visits to the emergency department for similar symptomatology, patient was discharged on May 05 after being admitted and done workup including the CTA which came back negative. Came back to the emergency department on 05/08 and from the ED talk to Dr. Hinton from the GI department, had appointment last and schedule appointment for EGD and colonoscopy Monday. Patient has been having similar symptoms approximately for 1-2 years but no diagnosis has been made. Complained of transient retrosternal chest pain that is felt secondary to her reflux disease has had this symptom before and is completely resolved. Patient also was found with elevation of troponins 0.05-0.06, during her last admission and a stress test and echocardiogram was done as well as cardiology was consulted who did not feel this was of any significance. In the emergency department given 20 mg of IV Pepcid, magnesium hydroxide 30 mL x1, 2 L of IV fluids, potassium replacement of 20 mEq IV +40 mEq p.o., Reglan [address] abdomen and pelvis was repeated and came back negative. Chest x-ray negative. Past Medical History Cardiac Medical History: Reports: Congestive Heart Failure - Diastolic, Hypertension Psychiatric Medical History: Denies: Depression Past Surgical History Past Surgical History: Reports: Hysterectomy Social History Lives with: Family Smoking Status: Never Smoker Frequency of Alcohol Use: None Hx Recreational Drug Use: No Drugs: None Hx Prescription Drug Abuse: No Family History Family History: Hypertension Family History: Brother with heart attack. Father with history of a stomach cancer. Parental Family History Reviewed: Yes - As above Children Family History Reviewed: NA Sibling(s) Family History Reviewed.: NA Medication/Allergy Home Medications: Docusate Sodium 100 mg PO BID 05/14/18 Metoprolol Tartrate [Lopressor 50 mg Tablet] 25 mg PO Q12 05/14/18 Pantoprazole Sodium 40 mg PO QAM 05/14/18 Allergies/Adverse Reactions: No Known Allergies Allergy (Verified 05/13/18 19:21) Review of Systems Review of Systems: As outlined above, others negative Physical Exam Vital Signs: Temp Pulse Resp BP Pulse Ox 99.0 F 101 H 18 188/88 H 100 05/13/18 19:12 05/14/18 01:40 05/13/18 19:12 05/13/18 19:12 05/13/18 19:12 Additional comments: General appearance: Well-developed, well-nourished, alert and cooperative, and appears to be in no acute distress Head: Normocephalic Eyes: PEERL, EOMI, vision is grossly intact. Ears: External auditory canal and tympanic membranes clear, hearing grossly intact. Nose: No nasal discharge. Throat: Oral cavity and pharynx dry. No inflammation, swelling, exudate or lesions. Neck: Neck supple, nontender without lymphadenopathy, masses or thyromegaly. Cardiac: Normal S1 and S2. No S3, S4 or murmurs. Rhythm is regular. There is no peripheral edema, cyanosis or pallor. Extremities are warm and well perfused. Capillary refill is less than 2 seconds. No carotid bruits. Lungs: Clear to auscultation and percussion without rales, rhonchi, wheezing or diminished breath sounds. Not using accessory muscles. Abdomen: Positive bowel sounds. Soft. Nondistended, mild epigastric tenderness. No guarding or rebound. No masses. No hepatosplenomegaly Extremities: No significant deformity or joint abnormality. No edema. Peripheral pulses intact. No varicosities. Neurological: Cranial nerves II through XII grossly intact. Strength and sensation symmetric and intact throughout. Reflexes 2+ throughout. Skin: Skin normal color, texture and turgor with no lesions or eruptions, warm and dry. Psychiatric: The mental examination revealed the patient was oriented to person , place, and time. The patient was able to demonstrate good judgment on recent , without hallucinations, abnormal affect or abnormal behaviors. Results Laboratory Results: 05/13/18 05/13/18 05/13/18 19:39 20:40 23:20 WBC 21.1 H RBC 4.83 Hgb 14.9 Hct 41.8 MCV 87 MCH 30.8 MCHC 35.6 RDW 12.8 Plt Count 345 Total Counted 100 Seg Neuts % (Manual) 91 H Lymphocytes % (Manual) 8 L Monocytes % (Manual) 1 L Eosinophils % (Manual) 0 Basophils % (Manual) 0 Abs Neuts (Manual) 19.2 H Abs Lymphs (Manual) 1.7 Abs Monocytes (Manual) 0.2 Absolute Eos (Manual) 0.0 Abs Basophils (Manual) 0.0 Toxic Granulation 1+ Toxic Vacuolation PRESENT Platelet Comment ADEQUATE Poikilocytosis SLIGHT Tear Drop Cells SLIGHT Elisa Cells SLIGHT Sodium 139.5 Potassium 2.9 L* Chloride 95 L Carbon Dioxide 27 Anion Gap 18 BUN 35 H Creatinine 1.46 H Est GFR ( Amer) 42 L Est GFR (Non-Af Amer) 35 L Glucose 145 H Lactic Acid Calcium 9.7 Troponin I 0.053 05/13/18 05/13/18 23:20 23:37 WBC RBC Hgb Hct MCV MCH MCHC RDW Plt Count Total Counted Seg Neuts % (Manual) Lymphocytes % (Manual) Monocytes % (Manual) Eosinophils % (Manual) Basophils % (Manual) Abs Neuts (Manual) Abs Lymphs (Manual) Abs Monocytes (Manual) Absolute Eos (Manual) Abs Basophils (Manual) Toxic Granulation Toxic Vacuolation Platelet Comment Poikilocytosis Tear Drop Cells [place] Cells Sodium Potassium Chloride Carbon Dioxide Anion Gap BUN Creatinine Est GFR ( Amer) Est GFR (Non-Af Amer) Glucose Lactic Acid 2.3 H Calcium Troponin I 0.067 Impressions: Chest X-Ray 05/13/18 19:24 IMPRESSION: NO ACUTE RADIOGRAPHIC FINDING IN THE CHEST. Abdomen/Pelvis CT 05/13/18 22:07 IMPRESSION: No acute disease. No evidence for nephrolithiasis or urinary obstruction. No bowel obstruction. Assessment & Plan - Diagnosis (1) Nausea and vomiting Qualifiers: Vomiting type: unspecified Vomiting Intractability: non-intractable Qualified Code(s): R11.2 - Nausea with vomiting, unspecified Is this a current diagnosis for this admission?: Yes Plan: Patient comes with several episodes of nausea and vomiting associated with one episode of diarrhea after swallowing 3 pills of Dulcolax, after medications given in the emergency department it has resolved. She has a history of similar symptomatology associated with abdominal pain for the last 2 years and was planned for EGD and colonoscopy today Monday the . I will place the patient on IV fluids, IV antiemetics as needed, IV and p.o. medications as needed. Certainly patient needs to have EGD and colonoscopy and apparently she had extensive workup in the past and everything was negative. I am placing a nurses communication to call Dr. Hinton and let him know patient has been hospitalized again. Lactic acid 2.3, expect to improve after IV hydration. (2) Acute kidney injury (nontraumatic) Is this a current diagnosis for this admission?: Yes Plan: This is probably prerenal secondary to dehydration secondary to her persistent nausea and vomiting, will continue with IV fluids and reassess renal panel in the morning. BUN 37/1.72 from 35/1.46. Patient is CKD stage III. Avoid nephrotoxic drugs. No further workup is warranted. (3) Leukocytosis Qualifiers: Leukocytosis type: unspecified Qualified Code(s): D72.829 - Elevated white blood cell count, unspecified Is this a current diagnosis for this admission?: Yes Plan: White blood cells 21.1 with a repeat event of 22.9 with left shift, unclear etiology, the patient does not have any clear focus of infection, does not look toxic. She had a history of leukocytosis before with no obvious source. I will not place the patient on antibiotics and will wait for her CBC with differential in the morning. Denies fever or chills. (4) Elevated troponin I level Is this a current diagnosis for this admission?: Yes Plan: Troponin 0 0.053-0.067. Patient does not have any cardiac symptomatology and during the last admission she also had troponins elevation which resolved spontaneously. At that time cardiology was consulted and she had a stress test and echocardiogram. It was felt that this elevation was of no significance by cardiology. (5) Heart failure with preserved ejection fraction Is this a current diagnosis for this admission?: Yes Plan: As per echocardiogram done during her last admission which shows grade 2 diastolic dysfunction which seems to be compensated. (6) Hypertension Qualifiers: Hypertension type: unspecified Qualified Code(s): I10 - Essential (primary ) hypertension Is this a current diagnosis for this admission?: Yes Plan: Elevated with a BP of 188/88, continue with metoprolol, IV Lopressor as needed (7) Hypokalemia Is this a current diagnosis for this admission?: Yes Plan: Potassium 2.9, has been repleted with 20 mEq IV +40 mEq p.o. in the emergency department. EKG unremarkable. (8) Peptic ulcer disease Is this a current diagnosis for this admission?: Yes Plan: Continue with lansoprazole and Carafate. - Time Time Spent: 50 to 70 Minutes - Inpatient Certification Based on my medical assessment, after consideration of the patient's comorbidities, presenting symptoms, or acuity I expect that the services needed warrant INPATIENT care.: Yes I certify that my determination is in accordance with my understanding of Medicare's requirements for reasonable and necessary INPATIENT services [42 CFR 412.3e].: Yes Medical Necessity: Risk of Complication if Not Cared For in Hospital
[2018-05-14] MEDS: HEPARIN SOD (PORCINE) 5,000 UNIT/ML 1 ML SYRINGE SUBCUT SCH ×3 (04:59→22:57)
[2018-05-14 05:54] LABS: ABSOLUTE BASOPHILS # (AUTO) 0.1 10^3/uL (0.0-0.2); ABSOLUTE EOSINOPHILS # (AUTO) 0.1 10^3/uL (0.0-0.6); ABSOLUTE MONOCYTES (AUTO) 1.7 10^3/uL (0.1-1.4); BASOPHILS % (AUTO) 0.4 % (0-2); EOSINOPHILS % (AUTO) 0.8 % (0-6); HEMOGLOBIN 12.8 g/dL (12.0-15.5); LYMPHOCYTES % (AUTO) 19.1 % (13-45); MEAN CORPUSCULAR HEMOGLOBIN 31.7 pg (27.0-33.4); MEAN CORPUSCULAR HGB CONC 35.4 g/dL (32.0-36.0); MEAN CORPUSCULAR VOLUME 89 fl (80-97); MONOCYTES % (AUTO) 10.6 % (3-13); PLATELET COUNT 236 10^3/uL (150-450); RED BLOOD COUNT 4.03 10^6/uL (3.72-5.28); RED CELL DISTRIBUTION WIDTH 12.4 % (11.5-14.0); SEGMENTED NEUTROPHILS % (AUTO) 69.1 % (42-78); TOTAL CELLS COUNTED % (AUTO) 100 %
--- NOTE | 2018-05-14 06:15 | EKG REPORT ---
SEVERITY:- ABNORMAL ECG - SINUS RHYTHM LEFT VENTRICULAR HYPERTROPHY PROLONGED QT INTERVAL : Confirmed by: Juventino Sy MD 14-May-2018 06:14:29
[2018-05-14 06:17] LABS: ALANINE AMINOTRANSFERASE 25 U/L (9-52); ALBUMIN 3.8 g/dL (3.5-5.0); ALKALINE PHOSPHATASE 68 U/L (38-126); ANION GAP 10 (5-19); ASPARTATE AMINO TRANSFERASE 27 U/L (14-36); BILIRUBIN,DIRECT 0.2 mg/dL (0.0-0.4); BILIRUBIN,TOTAL 0.6 mg/dL (0.2-1.3); BLOOD UREA NITROGEN 36 mg/dL (7-20); CALCIUM 9.1 mg/dL (8.4-10.2); CARBON DIOXIDE 27 mmol/L (22-30); CHLORIDE 101 mmol/L (98-107); GLUCOSE 107 mg/dL (75-110); POTASSIUM 3.6 mmol/L (3.6-5.0); SODIUM 138.2 mmol/L (137-145); TOTAL PROTEIN 6.7 g/dL (6.3-8.2)
--- NOTE | 2018-05-14 12:17 | PDOC CONSULTATION ---
Consultation Consult Date: 05/14/18 Attending physician:: SARA HINTON Consult reason:: patient was scheduled for EGD and colonoscopy today as outpatient. presented to ED with chronic abdominal pain History of Present Illness Admission Date/PCP: 05/14/18 00:42 SARA HINTON MD History of Present Illness: BRIANDA MCRAE is a 72 year old female Multiple visit to ED seen as an outpatient and scheduled for EGD and colonoscopy today she wanted the Mg Citrate and Dulcolax prep as an outpatient ( I usually use Miralax) took the dulcolax and started to have cramping and had bowel movement ( that is how the medications work) for her bowel prep started to have abdominal pain and basically stopped the prep and came to the ED H/H in ED are normal patient had CT scan that was negative has had multiple presentations to the ED work up negative since not prepped , cannot proceed today will need to reschedule her procedure , but as an inpatient she will need Propofol sedation , will need to be done in the OR now she will be on clears, will need to be prepped today Past Medical History Cardiac Medical History: Reports: Congestive Heart Failure - Diastolic, Hypertension Psychiatric Medical History: Denies: Depression Past Surgical History Past Surgical History: Reports: Hysterectomy Social History Lives with: Family Smoking Status: Never Smoker Frequency of Alcohol Use: None Hx Recreational Drug Use: No Drugs: None Hx Prescription Drug Abuse: No Family History Family History: Hypertension Parental Family History Reviewed: Yes Children Family History Reviewed: Unknown Sibling(s) Family History Reviewed.: Unknown Medication/Allergy Home Medications: Docusate Sodium [Colace 100 mg Capsule] 100 mg PO BIDP PRN 05/14/18 Metoprolol Tartrate [Lopressor 50 mg Tablet] 50 mg PO Q12 05/14/18 Pantoprazole Sodium [Protonix] 40 mg PO Q6AM 05/14/18 Promethazine HCl [Phenergan 25 mg Tablet] 12.5 mg PO Q8HP PRN 05/14/18 Allergies/Adverse Reactions: No Known Allergies Allergy (Verified 05/13/18 19:21) Review of Systems Constitutional: ABSENT: fever(s), headache(s), night sweats, weakness Eyes: ABSENT: visual disturbances Ears: ABSENT: hearing changes Nose, Mouth, and Throat: ABSENT: mouth pain, sore throat Cardiovascular: ABSENT: edema, orthropnea, palpitations Respiratory: ABSENT: dyspnea, hemoptysis Gastrointestinal: ABSENT: hematemesis, hematochezia, melena Genitourinary: ABSENT: dysuria, hematuria Musculoskeletal: ABSENT: deformity, joint swelling Integumentary: ABSENT: pruritus Neurological: ABSENT: syncope, tingling, tremor(s), vertigo Endocrine: ABSENT: polydipsia, polyphagia, polyuria Hematologic/Lymphatic: ABSENT: easy bruising Physical Exam Vital Signs: Temp Pulse Resp BP Pulse Ox 98.4 F 76 15 132/71 H 100 05/14/18 07:21 05/14/18 07:21 05/14/18 07:21 05/14/18 07:21 05/14/18 07:21 Intake & Output 05/13/18 05/14/18 05/15/18 06:59 06:59 06:59 Intake Total 5 796 Balance 5 796 Weight 63.4 kg General appearance: PRESENT: no acute distress, well-developed, well-nourished Head exam: PRESENT: atraumatic, normocephalic Eye exam: PRESENT: EOMI, PERRLA. ABSENT: periorbital swelling, scleral icterus Mouth exam: PRESENT: moist, neck supple Throat exam: ABSENT: tonsillar exudate, tonsillogmegaly Neck exam: ABSENT: meningismus, tenderness, thyromegaly Respiratory exam: PRESENT: symmetrical, unlabored. ABSENT: tachypnea, wheezes Cardiovascular exam: PRESENT: RRR, +S1, +S2 GI/Abdominal exam: PRESENT: soft. ABSENT: rebound, rigid, tenderness Extremities exam: ABSENT: joint swelling Musculoskeletal exam: PRESENT: full ROM Neurological exam: PRESENT: alert, awake, oriented to time, oriented to situation, CN II-XII grossly intact Focused psych exam: ABSENT: restlessness Skin exam: PRESENT: normal color. ABSENT: mottled, pallor, petechiae, urticaria , vesicles Results Laboratory Results: 05/14/18 05:18 05/14/18 05:18 05/14/18 05/14/18 05/14/18 05:18 05:18 05:18 WBC 16.0 H RBC 4.03 Hgb 12.8 Hct 36.0 MCV 89 MCH 31.7 MCHC 35.4 RDW 12.4 Plt Count 236 Seg Neutrophils % 69.1 Lymphocytes % 19.1 Monocytes % 10.6 Eosinophils % 0.8 Basophils % 0.4 Absolute Neutrophils 11.0 H Absolute Lymphocytes 3.0 Absolute Monocytes 1.7 H Absolute Eosinophils 0.1 Absolute Basophils 0.1 Sodium 138.2 Potassium 3.6 Chloride 101 Carbon Dioxide 27 Anion Gap 10 BUN 36 H Creatinine 1.57 H Est GFR ( Amer) 39 L Est GFR (Non-Af Amer) 32 L Glucose 107 Lactic Acid 1.7 Calcium 9.1 Total Bilirubin 0.6 AST 27 ALT 25 Alkaline Phosphatase 68 Total Protein 6.7 Albumin 3.8 05/14/18 05:18 Troponin I 0.067 Impressions: Chest X-Ray 05/13/18 19:24 IMPRESSION: NO ACUTE RADIOGRAPHIC FINDING IN THE CHEST. Abdomen/Pelvis CT 05/13/18 22:07 IMPRESSION: No acute disease. No evidence for nephrolithiasis or urinary obstruction. No bowel obstruction. Assessment & Plan - Diagnosis (1) Abdominal pain Qualifiers: Abdominal location: left upper quadrant Qualified Code(s): R10.12 - Left upper quadrant pain Plan: chronic pain of unclear etiology was schedule for outpatient work up today but was admitted yesterday had some electrolyte abnormalities will need to prep Go lytely prep appears to be more suitable since had abnormal renal function will need Propofol sedation previous cardiac work up negative CT scan in negative Risks, benefits and alternatives are discussed with the patient in detail further recommendations to follow - Time Time Spent: 50 to 70 Minutes
--- NOTE | 2018-05-14 13:19 | Physician Advisory Note ---
Physician Advisor ProgressNote .: Pursuant to the plan for [facility], I have reviewed the medical record for this patient. Physician Advisor Statement: Please consider documenting, if you agree: 1. "Baseline Cr= " Status: Typically, a Medicare pt w/N/V/D/abd pain/lyte abnormalities would be most appropriately started as Observation status, then changed to Inpt if unable to safely d/c next day. - However, this pt has significant ESVIN that has not yet resolved to baseline levels (Baseline appears to be <1.0, as low as 0.6) even after 2L of IVF boluses in ED & continued 125ml/hr (tricky with underlying chronic diastolic CHF ). Pt still needs prep for upper/lower endoscopy, which she couldn't tolerate outpt - will need to stay in hospital to obtain prep adequately & keep hydrated & lytes replaced through it, then procedures in OR under Propofol sedation for toleration. This will require at least 2MNs in hospital w/close monitoring of lytes, fluid status. Apppropriate for Inpatient status. Thanks! CK
[2018-05-14] MEDS ORDERED: PEG 3350/NA SULF,BICARB,CL/KCL 4000 ML PO ONE (13:30)
[2018-05-14 17:11] LABS: APPEARANCE,URINE CLEAR; BILIRUBIN,URINE NEGATIVE (NEGATIVE); COLOR,URINE YELLOW; GLUCOSE, URINE 50 mg/dL (NEGATIVE); KETONES,URINE NEGATIVE (NEGATIVE); LEUKOCYTE ESTERASE,URINE NEGATIVE (NEGATIVE); NITRITE,URINE NEGATIVE (NEGATIVE); PROTEIN,URINE NEGATIVE (NEGATIVE); URINE SPECIFIC GRAVITY 1.013; UROBILINOGEN,URINE NEGATIVE mg/dL (<2.0)
[2018-05-14 17:27] LABS: URINE AMPHETAMINES SCREEN NEGATIVE; URINE BARBITURATES SCREEN NEGATIVE; URINE BENZODIAZEPINES SCREEN NEGATIVE; URINE COCAINE SCREEN NEGATIVE; URINE METHADONE SCREEN NEGATIVE; URINE PHENCYCLIDINE SCREEN NEGATIVE
[2018-05-14 18:11] LABS: URINE MARIJUANA (THC) SCREEN UNCONFIRMED POSITIVE
[2018-05-14] MEDS ORDERED: HYDRALAZINE HCL 25 MG TABLET PO ONE (21:30)
[2018-05-15] MEDS: NORMAL SALINE 1000 ML 1,000 ML IV PRN ×2 (00:04→08:40)
[2018-05-15] MEDS: TEMAZEPAM 15 MG CAPSULE PO PRN ×2 (00:04→22:18)
[2018-05-15] MEDS: HEPARIN SOD (PORCINE) 5,000 UNIT/ML 1 ML SYRINGE SUBCUT SCH ×3 (05:07→22:17)
[2018-05-15] MEDS: LANSOPRAZOLE 30 MG TAB.RAP.DR PO SCH (10:05)
[2018-05-15] MEDS: METOPROLOL TARTRATE 50 MG TABLET PO SCH ×2 (10:05→22:18)
[2018-05-15] MEDS ORDERED: PROPOFOL INJ 200 MG/20 ML VIAL IV ONE (13:12)
[2018-05-15] MEDS ORDERED: FENTANYL CITRATE INJ/PF 100 MCG/2 ML AMPUL ONE (13:12)
[2018-05-15] MEDS ORDERED: PROMETHAZINE HCL INJ 25 MG/1 ML VIAL IV PRN ×2 (13:59)
[2018-05-15] MEDS ORDERED: DIPHENHYDRAMINE HCL 50 MG/ML VIAL IV PRN (13:59)
[2018-05-15] MEDS ORDERED: MEPERIDINE HCL/PF INJ 25 MG/1 ML DISP.SYRIN IV PRN (13:59)
[2018-05-15] MEDS ORDERED: FENTANYL CITRATE INJ/PF 100 MCG/2 ML AMPUL IV PRN ×3 (13:59)
--- NOTE | 2018-05-15 14:05 | PDOC PROGRESS REPORT ---
Subjective Progress Note for:: 05/15/18 Subjective:: BRIANDA MCRAE is a 72 year old female who comes to the emergency department with symptoms since Monday 7 AM in the morning, patient is planned for EGD and colonoscopy Monday to be done by Dr. Mcnally and she was prescribed 3 pills of Dulcolax followed by magnesium [facility]. She tells me that after the Dulcolax she could eat a little bit but he started with persistent nausea and nonbloody vomiting x5, feels like her abdomen was contracted really hard, denies at least anxiety, had one episode of a large nonbloody diarrhea. Tells me she has been losing weight for the last 2 years from 177 pounds to 140 pounds unintentional. Patient has history of several visits to the emergency department for similar symptomatology, patient was discharged on May 05 after being admitted and done workup including the CTA which came back negative. Came back to the emergency department on 05/08 and from the ED talk to Dr. cMnally from the GI department, had appointment last and schedule appointment for EGD and colonoscopy Monday. Patient continues to have nausea abdominal pain. For EGD and colonoscopy today. Patient upset she has not been able to eat and is scheduled for later today no new complaints. White count remains elevated. Review of medical records patient's white count has never been normal. There does appear to be a slight left shift. Prior CT did show gallbladder stones. Reason For Visit: NAUSEA, VOMITING AND DIARRHEA, HYPOKALEMIA Physical Exam Vital Signs: Temp Pulse Resp BP Pulse Ox 98.8 F 78 14 164/98 H 99 05/15/18 11:54 05/15/18 12:54 05/15/18 11:54 05/15/18 12:54 05/15/18 11:54 Intake & Output 05/14/18 05/15/18 05/16/18 06:59 06:59 06:59 Intake Total 5 3303 1000 Output Total 935 Balance 5 2368 1000 Weight 63.4 kg 64.1 kg General appearance: PRESENT: no acute distress, well-developed, well-nourished Eye exam: PRESENT: conjunctiva pink, EOMI, PERRLA. ABSENT: scleral icterus Neck exam: ABSENT: carotid bruit, JVD, lymphadenopathy, thyromegaly Respiratory exam: PRESENT: clear to auscultation ceci. ABSENT: rales, rhonchi, wheezes Cardiovascular exam: PRESENT: RRR. ABSENT: diastolic murmur, rubs, systolic murmur GI/Abdominal exam: PRESENT: normal bowel sounds, soft, tenderness. ABSENT: distended, guarding, mass, organolmegaly, rebound Extremities exam: PRESENT: full ROM. ABSENT: calf tenderness, clubbing, pedal edema Results Laboratory Results: 05/14/18 05:18 05/14/18 05:18 05/14/18 05/15/18 16:50 03:56 Magnesium 1.6 Urine Color YELLOW Urine Appearance CLEAR Urine pH 6.0 Ur Specific [place] 1.013 Urine Protein NEGATIVE Urine Glucose (UA) 50 H Urine Ketones NEGATIVE Urine Blood NEGATIVE Urine Nitrite NEGATIVE Ur Leukocyte Esterase NEGATIVE Urine WBC (Auto) 1 Urine RBC (Auto) 0 05/14/18 05/14/18 05/14/18 05:18 12:15 18:20 Troponin I 0.067 0.038 0.024 Impressions: Chest X-Ray 05/13/18 19:24 IMPRESSION: NO ACUTE RADIOGRAPHIC FINDING IN THE CHEST. Abdomen/Pelvis CT 05/13/18 22:07 IMPRESSION: No acute disease. No evidence for nephrolithiasis or urinary obstruction. No bowel obstruction. Assessment & Plan - Diagnosis (1) Acute kidney injury (nontraumatic) Is this a current diagnosis for this admission?: Yes Plan: Creatinine 0.6-1.0. Patient not quite at baseline continue hydration (2) Dehydration Is this a current diagnosis for this admission?: Yes Plan: Improved with IV hydration. (3) Leukocytosis Qualifiers: Leukocytosis type: unspecified Qualified Code(s): D72.829 - Elevated white blood cell count, unspecified Is this a current diagnosis for this admission?: Yes Plan: Trending downward. During last hospitalization was never less than 12. No clear cause for infection. Will check sed rate consider hematology consult and flow cytometry. (4) Abdominal pain Qualifiers: Abdominal location: left upper quadrant Qualified Code(s): R10.12 - Left upper quadrant pain Is this a current diagnosis for this admission?: Yes Plan: Unclear etiology. Patient to undergo upper and lower endoscopy. Will obtain echocardiogram of the abdomen to examine the gallbladder CAT scan from prior admission showed low-density stones. Consider HIDA scan if any evidence of inflammation. (5) Elevated troponin I level Is this a current diagnosis for this admission?: Yes Plan: Chronic troponin anemia negative cardiac workup (6) Hypertension Qualifiers: Hypertension type: unspecified Qualified Code(s): I10 - Essential (primary ) hypertension Is this a current diagnosis for this admission?: Yes Plan: Elevated. Patient on home medications will monitor and make adjustments as necessary. (7) Nausea and vomiting Qualifiers: Vomiting type: unspecified Vomiting Intractability: non-intractable Qualified Code(s): R11.2 - Nausea with vomiting, unspecified Is this a current diagnosis for this admission?: Yes Plan: No clear etiology at this time. Await endoscopy report - Time Time Spent with patient: 25-34 minutes
--- NOTE | 2018-05-15 14:34 | Operative Report ---
Operative Report DATE OF SURGERY: 05/15/18 Operative Report: The risks, benefits and alternatives of the procedure including the risks of bleeding, perforation requiring surgery are explained to the patient in detail and informed consent is obtained. The patient was taken to the operating room and placed in the left, lateral decubital position. Timeout was called. Propofol medication is administered. A rectal examination is done which did not reveal any masses, tears or fissures. An Olympus videoscope was introduced into the patient's rectum. There is carefully advanced all the way to the cecum. The cecum was identified by the usual anatomical landmarks including the ileocecal valve as well as appendiceal office. Photodocumentation is obtained. Prep was good. The scope was then sequentially pulled back via the various segments of the colon including the ascending colon, hepatic flexure, transverse colon, splenic flexure, descending colon and finally to the rectosigmoid portions of the colon. Retroflexion maneuvers performed. PREOPERATIVE DIAGNOSIS: Nausea vomiting rule out gastric outlet obstruction. Change of bowel habits POSTOPERATIVE DIAGNOSIS: Colon polyp that was removed via be a biopsy forceps in the cecum. Sigmoid diverticulosis without any evidence of diverticulitis. Internal hemorrhoids. Gastritis status post biopsy rule out Helicobacter pylori. Duodenal biopsies obtained to rule out celiac disease. No obstruction noted OPERATION: Colonoscopy with biopsy. EGD with biopsy SURGEON: SARA HINTON ANESTHESIA: LMAC TISSUE REMOVED OR ALTERED: As noted above. COMPLICATIONS: None. ESTIMATED BLOOD LOSS: None. INTRAOPERATIVE FINDINGS: As noted above. PROCEDURE: Patient tolerated the procedure well. No immediate postprocedure complications are noted. Patient sent back to her room from [facility] in good condition. Resume regular diet. Resume previous medications. Patient still has nausea and vomiting, since EGD is negative consider gallbladder workup with ultrasound and HIDA scan Diverticulosis without any evidence of diverticulitis She likely has IBS of the if she continues to have problems then the workup from the gynecologic and urinary tract system should be undertaken. We will wait on biopsies Can see as outpatient
--- NOTE | 2018-05-16 05:52 | RADIOLOGY REPORT (SQ) ---
EXAM DESCRIPTION: US ABDOMEN LIMITED COMPLETED DATE/TME: 05/16/2018 00:00 CLINICAL HISTORY: 72 years Female, abd pain ? GB stones on CT Comparison: None. LIMITATIONS: None. FINDINGS: Gallbladder, negative sonographic Aquino's test, liver, a 0.2-cm diameter common bile duct, no intrahepatic ductal dilation, 11-cm right kidney with likely benign 1.8 cm cyst not definitively characterized, partially obscured pancreas, visualized vasculature/abdominal aorta, and no significant ascites appear otherwise unremarkable. IMPRESSION: No acute findings.
[2018-05-16] MEDS: LANSOPRAZOLE 30 MG TAB.RAP.DR PO SCH (05:53)
[2018-05-16] MEDS: HEPARIN SOD (PORCINE) 5,000 UNIT/ML 1 ML SYRINGE SUBCUT SCH ×2 (05:53→13:50)
[2018-05-16 06:04] LABS: ABSOLUTE BASOPHILS # (AUTO) 0.1 10^3/uL (0.0-0.2); ABSOLUTE EOSINOPHILS # (AUTO) 0.2 10^3/uL (0.0-0.6); ABSOLUTE LYMPHOCYTES (AUTO) 1.9 10^3/uL (0.5-4.7); ABSOLUTE MONOCYTES (AUTO) 0.9 10^3/uL (0.1-1.4); ABSOLUTE NEUT (AUTO) 5.4 10^3/uL (1.7-8.2); BASOPHILS % (AUTO) 0.7 % (0-2); EOSINOPHILS % (AUTO) 2.2 % (0-6); HEMATOCRIT 32.8 % (36.0-47.0); HEMOGLOBIN 11.7 g/dL (12.0-15.5); LYMPHOCYTES % (AUTO) 22.7 % (13-45); MEAN CORPUSCULAR HEMOGLOBIN 31.8 pg (27.0-33.4); MEAN CORPUSCULAR HGB CONC 35.7 g/dL (32.0-36.0); MEAN CORPUSCULAR VOLUME 89 fl (80-97); MONOCYTES % (AUTO) 10.4 % (3-13); PLATELET COUNT 199 10^3/uL (150-450); RED BLOOD COUNT 3.69 10^6/uL (3.72-5.28); RED CELL DISTRIBUTION WIDTH 12.4 % (11.5-14.0); TOTAL CELLS COUNTED % (AUTO) 100 %; WHITE BLOOD COUNT 8.5 10^3/uL (4.0-10.5)
[2018-05-16 06:30] LABS: ANION GAP 8 (5-19); BLOOD UREA NITROGEN 14 mg/dL (7-20); CALCIUM 9.1 mg/dL (8.4-10.2); CARBON DIOXIDE 26 mmol/L (22-30); CHLORIDE 107 mmol/L (98-107); GLUCOSE 90 mg/dL (75-110); POTASSIUM 3.4 mmol/L (3.6-5.0); SODIUM 141.2 mmol/L (137-145)
[2018-05-16 06:44] LABS: ERYTHROCYTE SEDIMENTATION RATE 13 mm/hr (0-30)
--- NOTE | 2018-05-16 07:01 | PDOC PROGRESS REPORT ---
Subjective Progress Note for:: 05/16/18 Subjective:: patient underwent EGD and colonoscopy yesterday uneventful awaiting biopsies for polyp diverticulosis but without diverticulitis utlrasound done was negative ? HIDA scan patient did not have any overnight issues no bleeding is noted H/H is stable Reason For Visit: NAUSEA, VOMITING AND DIARRHEA, HYPOKALEMIA Physical Exam Vital Signs: Temp Pulse Resp BP Pulse Ox 99.0 F 75 15 138/70 H 100 05/15/18 22:53 05/16/18 02:00 05/15/18 22:53 05/15/18 22:53 05/15/18 22:53 Intake & Output 05/14/18 05/15/18 05/16/18 06:59 06:59 06:59 Intake Total 5 3303 1800 Output Total 935 0 Balance 5 2368 1800 Weight 63.4 kg 64.1 kg 65 kg General appearance: PRESENT: no acute distress, well-developed, well-nourished Head exam: PRESENT: atraumatic, normocephalic Eye exam: PRESENT: EOMI, PERRLA. ABSENT: scleral icterus Mouth exam: PRESENT: moist, neck supple Throat exam: PRESENT: tonsillar exudate, tonsillogmegaly Neck exam: ABSENT: meningismus, tenderness, thyromegaly Respiratory exam: PRESENT: unlabored. ABSENT: tachypnea, wheezes Cardiovascular exam: PRESENT: RRR, +S1, +S2 GI/Abdominal exam: PRESENT: soft. ABSENT: rebound, rigid, tenderness Extremities exam: ABSENT: joint swelling Neurological exam: PRESENT: oriented to time, oriented to situation, CN II-XII grossly intact Focused psych exam: ABSENT: restlessness Skin exam: PRESENT: normal color. ABSENT: mottled, urticaria, vesicles Results Laboratory Results: 05/16/18 05:47 05/16/18 05:47 05/16/18 05/16/18 05:47 05:47 WBC 8.5 RBC 3.69 L Hgb 11.7 L Hct 32.8 L MCV 89 MCH 31.8 MCHC 35.7 RDW 12.4 Plt Count 199 Seg Neutrophils % 64.0 Lymphocytes % 22.7 Monocytes % 10.4 Eosinophils % 2.2 Basophils % 0.7 Absolute Neutrophils 5.4 Absolute Lymphocytes 1.9 Absolute Monocytes 0.9 Absolute Eosinophils 0.2 Absolute Basophils 0.1 Sodium 141.2 Potassium 3.4 L Chloride 107 Carbon Dioxide 26 Anion Gap 8 BUN 14 Creatinine 0.88 Est GFR ( Amer) > 60 Est GFR (Non-Af Amer) > 60 Glucose 90 Calcium 9.1 Magnesium 1.5 L 05/14/18 05/14/18 05/14/18 05:18 12:15 18:20 Troponin I 0.067 0.038 0.024 Impressions: Chest X-Ray 05/13/18 19:24 IMPRESSION: NO ACUTE RADIOGRAPHIC FINDING IN THE CHEST. Abdomen/Pelvis CT 05/13/18 22:07 IMPRESSION: No acute disease. No evidence for nephrolithiasis or urinary obstruction. No bowel obstruction. Abdomen Ultrasound 05/16/18 00:00 IMPRESSION: No acute findings. Assessment & Plan - Diagnosis (1) Abdominal pain Qualifiers: Abdominal location: left upper quadrant Qualified Code(s): R10.12 - Left upper quadrant pain Is this a current diagnosis for this admission?: Yes Plan: etiology not found via EGD and colonoscopy continue to rule out other organ systems wait on biopsy for polyp, should not be causing any pain or discomfort related to that does not have diverticulitis some internal hemorrhoids are noted (2) Nausea and vomiting Qualifiers: Vomiting type: unspecified Vomiting Intractability: non-intractable Qualified Code(s): R11.2 - Nausea with vomiting, unspecified Is this a current diagnosis for this admission?: Yes Plan: ultrasound is negative will get HIDA scan ordered may have biliary dyskinesia continue work up - Time Time Spent with patient: 15-24 minutes
[2018-05-16] MEDS: METOPROLOL TARTRATE 50 MG TABLET PO SCH (08:59)
[2018-05-16 09:51] VITALS: BP 123/63
--- NOTE | 2018-05-16 10:46 | PDOC DISCHARGE SUMMARY ---
General - Admit/Disc Date/PCP Admission Date/Primary Care Provider: 05/14/18 00:42 SARA HINTON MD Discharge Date: 05/16/18 - Discharge Diagnosis (1) Gastritis and duodenitis Is this a current diagnosis for this admission?: Yes Summary: Confirmed by endoscopy (2) Acute kidney injury (nontraumatic) Is this a current diagnosis for this admission?: Yes Summary: Due to dehydration resolved with hydration (3) Dehydration Is this a current diagnosis for this admission?: Yes (4) Leukocytosis Is this a current diagnosis for this admission?: Yes Summary: Reactive white count 8.6 at the time of discharge (5) Abdominal pain Is this a current diagnosis for this admission?: Yes (6) Elevated troponin I level Is this a current diagnosis for this admission?: Yes Summary: Chronic troponin elevation negative stress test on previous admission (7) Hypertension Is this a current diagnosis for this admission?: Yes (8) Nausea and vomiting Is this a current diagnosis for this admission?: Yes (9) Colonic polyp Is this a current diagnosis for this admission?: Yes Summary: Biopsy during colonoscopy - Additional Information Resuscitation Status: Full Code Discharge Diet: As Tolerated, Regular Discharge Activity: Activity As Tolerated Prescriptions: Pantoprazole Sodium [Protonix] 40 mg PO BID #60 tablet. Home Medications: Docusate Sodium [Colace 100 mg Capsule] 100 mg PO BIDP PRN 05/14/18 Metoprolol Tartrate [Lopressor 50 mg Tablet] 50 mg PO Q12 05/14/18 Promethazine HCl [Phenergan 25 mg Tablet] 12.5 mg PO Q8HP PRN 05/14/18 Acetaminophen [Tylenol 325 mg Tablet] 650 mg PO Q4HP PRN tablet 05/16/18 Pantoprazole Sodium [Protonix] 40 mg PO BID #60 tablet. 05/16/18 History of Present Illness Patient complains of: Abdominal pain nausea and vomiting History of Present Illness: BRIANDA MCRAE is a 72 year old female who comes to the emergency department with symptoms since Monday 7 AM in the morning, patient is planned for EGD and colonoscopy Monday to be done by Dr. Hinton and she was prescribed 3 pills of Dulcolax followed by magnesium [facility]. She tells me that after the Dulcolax she could eat a little bit but he started with persistent nausea and nonbloody vomiting x5, feels like her abdomen was contracted really hard, denies at least anxiety, had one episode of a large nonbloody diarrhea. Tells me she has been losing weight for the last 2 years from 177 pounds to 140 pounds unintentional. Patient has history of several visits to the emergency department for similar symptomatology, patient was discharged on May 05 after being admitted and done workup including the CTA which came back negative. Came back to the emergency department on 05/08 and from the ED talk to Dr. Hinton from the GI department, had appointment last and schedule appointment for EGD and colonoscopy Monday. Hospital Course Hospital Course: Patient admitted to telemetry bed and a consultation with Dr. Hinton was obtained. The patient has been having abdominal discomfort on and off for the past year. She has been in a stressful situation and recently relocated to this area from [place]. Patient was scheduled for an upper and lower endoscopy which was accomplished. There was a small colon polyp which was biopsied she had diffuse gastritis and duodenitis without ivan hemorrhage or ulceration. She had been on Protonix in the outpatient setting and this was increased to twice daily at the time of discharge. Prior CTs which showed no acute pathology were reviewed patient had some low-density stone suspected in the gallbladder for this reason an abdominal ultrasound was ordered which showed no evidence of stones or chino-gallbladder inflammation. The following morning after her endoscopy patient had no abdominal discomfort. At this point she was instructed to increase her Protonix to twice a day follow-up with Dr. Hinton as scheduled for biopsy results. If additional episodes occur than further workup would have to be entertained such as a small bowel follow-through and possibly a HIDA scan although disease would be considered to be low yield. Physical Exam Vital Signs: Temp Pulse Resp BP Pulse Ox 98.9 F 79 16 123/63 99 05/16/18 09:45 05/16/18 09:45 05/16/18 09:45 05/16/18 09:45 05/16/18 10:19 Intake & Output 05/15/18 05/16/18 05/17/18 06:59 06:59 06:59 Intake Total 3303 1800 480 Output Total 935 0 Balance 2368 1800 480 Weight 64.1 kg 65 kg General appearance: PRESENT: no acute distress, well-developed, well-nourished Neck exam: ABSENT: carotid bruit, JVD, lymphadenopathy, thyromegaly Respiratory exam: PRESENT: clear to auscultation ceci. ABSENT: rales, rhonchi, wheezes Cardiovascular exam: PRESENT: RRR. ABSENT: diastolic murmur, rubs, systolic murmur GI/Abdominal exam: PRESENT: normal bowel sounds, soft. ABSENT: distended, guarding, mass, organolmegaly, rebound, tenderness Extremities exam: PRESENT: full ROM. ABSENT: calf tenderness, clubbing, pedal edema Results Laboratory Results: 05/16/18 05:47 05/16/18 05:47 05/16/18 05/16/18 05:47 05:47 WBC 8.5 RBC 3.69 L Hgb 11.7 L Hct 32.8 L MCV 89 MCH 31.8 MCHC 35.7 RDW 12.4 Plt Count 199 Seg Neutrophils % 64.0 Lymphocytes % 22.7 Monocytes % 10.4 Eosinophils % 2.2 Basophils % 0.7 Absolute Neutrophils 5.4 Absolute Lymphocytes 1.9 Absolute Monocytes 0.9 Absolute Eosinophils 0.2 Absolute Basophils 0.1 Sodium 141.2 Potassium 3.4 L Chloride 107 Carbon Dioxide 26 Anion Gap 8 BUN 14 Creatinine 0.88 Est GFR ( Amer) > 60 Est GFR (Non-Af Amer) > 60 Glucose 90 Calcium 9.1 Magnesium 1.5 L 05/14/18 05/14/18 05/14/18 05:18 12:15 18:20 Troponin I 0.067 0.038 0.024 Impressions: Chest X-Ray 05/13/18 19:24 IMPRESSION: NO ACUTE RADIOGRAPHIC FINDING IN THE CHEST. Abdomen/Pelvis CT 05/13/18 22:07 IMPRESSION: No acute disease. No evidence for nephrolithiasis or urinary obstruction. No bowel obstruction. Abdomen Ultrasound 05/16/18 00:00 IMPRESSION: No acute findings. Qualifiers - * PATIENT BEING DISCHARGED WITH ANY OF THE FOLLOWING DIAGNOSIS: No Plan Time Spent: Greater than 30 Minutes
== END 2018-05-16 13:15 | disposition home or self-care (01) | DRG 392 ==
LOC: ER 19:04 → EH 05-14 00:42 → 5 05-14 01:37
PROVIDERS: ADMIT Internal Medicine; ATTEND Internal Medicine
PROC: 0DB98ZX Excision of Duodenum, Via Natural or Artificial Opening Endoscopic, Diagnostic (ICD-10-PCS; 2018-05-15)
PROC: 0DB78ZX Excision of Stomach, Pylorus, Via Natural or Artificial Opening Endoscopic, Diagnostic (ICD-10-PCS; 2018-05-15)
PROC: 0DBH8ZX Excision of Cecum, Via Natural or Artificial Opening Endoscopic, Diagnostic (ICD-10-PCS; principal; 2018-05-15 13:30)
PROC: 0DBF8ZX Excision of Right Large Intestine, Via Natural or Artificial Opening Endoscopic, Diagnostic (ICD-10-PCS; 2018-05-15 13:30)
DX: K29.80 Duodenitis without bleeding (principal); I50.30 Unspecified diastolic (congestive) heart failure; I13.0 Hypertensive heart and chronic kidney disease with heart failure and stage 1 through stage 4 chronic kidney disease, or unspecified chronic kidney disease; N17.9 Acute kidney failure, unspecified; K29.70 Gastritis, unspecified, without bleeding; G89.29 Other chronic pain; K63.5 Polyp of colon; R63.4 Abnormal weight loss; N18.3 Chronic kidney disease, stage 3 (moderate); K57.30 Diverticulosis of large intestine without perforation or abscess without bleeding; K64.8 Other hemorrhoids; E87.6 Hypokalemia; R74.8 Abnormal levels of other serum enzymes; E86.0 Dehydration; D72.829 Elevated white blood cell count, unspecified; Z90.710 Acquired absence of both cervix and uterus; Z82.49 Family history of ischemic heart disease and other diseases of the circulatory system; Z80.0 Family history of malignant neoplasm of digestive organs
CPT/HCPCS: 36415; 43239; 45380; 71045; 74176; 76705; 80048; 80053; 80307; 81001; 813; 83605; 83690; 83735; 84484; 85025; 85652; 87040; 88305; 93005; 93010; 96361; 96374; 96375; 99285; J1170; J1630; J1644; J2704; J3010; J3480; J3490; J7030; J7120; S0028

== ENCOUNTER 2019-03-31 11:37 | Emergency (ER) | payer MEDICARE ==
[2019-03-31 11:52] LABS: ABSOLUTE BASOPHILS # (AUTO) 0.1 10^3/uL (0.0-0.2); ABSOLUTE LYMPHOCYTES (AUTO) 1.4 10^3/uL (0.5-4.7); ABSOLUTE MONOCYTES (AUTO) 0.8 10^3/uL (0.1-1.4); ABSOLUTE NEUT (AUTO) 11.5 10^3/uL (1.7-8.2); BASOPHILS % (AUTO) 0.6 % (0-2); EOSINOPHILS % (AUTO) 0.1 % (0-6); HEMATOCRIT 46.2 % (36.0-47.0); HEMOGLOBIN 15.9 g/dL (12.0-15.5); LYMPHOCYTES % (AUTO) 9.8 % (13-45); MEAN CORPUSCULAR HEMOGLOBIN 30.7 pg (27.0-33.4); MEAN CORPUSCULAR HGB CONC 34.5 g/dL (32.0-36.0); MEAN CORPUSCULAR VOLUME 89 fl (80-97); MONOCYTES % (AUTO) 5.8 % (3-13); PLATELET COUNT 236 10^3/uL (150-450); RED CELL DISTRIBUTION WIDTH 12.6 % (11.5-14.0); SEGMENTED NEUTROPHILS % (AUTO) 83.7 % (42-78); TOTAL CELLS COUNTED % (AUTO) 100 %; WHITE BLOOD COUNT 13.8 10^3/uL (4.0-10.5)
[2019-03-31] MEDS ORDERED: ONDANSETRON HCL INJ/PF 4 MG/2 ML SDV IV ONE ×2 (12:06→13:38)
--- NOTE | 2019-03-31 12:07 | ER Document Report ---
ED Medical Screen (RME) - General Chief Complaint: Nausea/Vomiting Stated Complaint: ABDOMINAL PAIN/VOMITING Time Seen by Provider: 03/31/19 12:04 Primary Care Provider: SARA HINTON MD [Primary Care Provider] - Follow up as needed Mode of Arrival: Medic Information source: Patient Notes: 73-year-old female presented to ED for complaint of nausea and vomiting since Monday. She states she called her daughter and told her she needed to come to the emergency room because she was not coming back from that she was not stopping the nausea and vomiting. She states she has not had any diarrhea. She states she is having a little bit of lower left quadrant abdominal pain. She is alert and oriented answering questions appropriate pain I have greeted and performed a rapid initial assessment of this patient. A comprehensive ED assessment and evaluation of the patient, analysis of test results and completion of medical decision making process will be conducted by an additional ED providers. TRAVEL OUTSIDE OF THE [place] IN LAST 30 DAYS: No - Related Data Allergies/Adverse Reactions: No Known Allergies Allergy (Verified 05/13/18 19:21) Past Medical History - Past Medical History Cardiac Medical History: Reports: Hx Congestive Heart Failure - Diastolic, Hx Hypertension Renal/ Medical History: Denies: Hx Peritoneal Dialysis Psychiatric Medical History: Denies: Hx Depression Past Surgical History: Reports: Hx Hysterectomy Physical Exam - Vital signs Vitals: Temp 98.6 F 03/31/19 11:47 Course - Vital Signs Vital signs: Temp Pulse Resp BP Pulse Ox 98.6 F 03/31/19 11:47 - Laboratory Result Diagrams: 03/31/19 11:19 03/31/19 11:19 Laboratory results interpreted by me: 03/31/19 11:19 WBC 13.8 H Hgb 15.9 H Lymph % (Auto) 9.8 L Absolute Neuts (auto) 11.5 H Seg Neutrophils % 83.7 H Doctor's Discharge - Discharge Referrals: SARA HINTON MD [Primary Care Provider] - Follow up as needed
[2019-03-31 12:11] LABS: ALBUMIN 4.9 g/dL (3.5-5.0); ALKALINE PHOSPHATASE 95 U/L (38-126); ANION GAP 14 (5-19); ASPARTATE AMINO TRANSFERASE 34 U/L (14-36); BILIRUBIN,DIRECT 0.4 mg/dL (0.0-0.4); BILIRUBIN,TOTAL 0.8 mg/dL (0.2-1.3); BLOOD UREA NITROGEN 37 mg/dL (7-20); CALCIUM 10.4 mg/dL (8.4-10.2); CARBON DIOXIDE 29 mmol/L (22-30); CHLORIDE 94 mmol/L (98-107); GLUCOSE 170 mg/dL (75-110); POTASSIUM 3.4 mmol/L (3.6-5.0); TOTAL PROTEIN 8.8 g/dL (6.3-8.2)
[2019-03-31] MEDS ORDERED: NORMAL SALINE 1000 ML 1,000 ML IV ONE (13:38)
[2019-03-31] MEDS ORDERED: AMLODIPINE BESYLATE 10 MG TABLET PO ONE (15:00)
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
[2019-03-31] MEDS ORDERED: DICYCLOMINE HCL INJ 20 MG/2 ML AMPULE IM ONE (17:38)
--- NOTE | 2019-03-31 18:16 | RADIOLOGY REPORT (SQ) ---
EXAM DESCRIPTION: CT ABD/PELVIS WITH IV ONLY COMPLETED DATE/TIME: 03/31/2019 5:53 pm REASON FOR STUDY: abdominal pain and vomiting . Left lower quadrant pain. Prior hysterectomy. COMPARISON: CT abdomen and pelvis 05/13/2018, 05/01/2018. Right upper quadrant ultrasound 05/16/2018 . TECHNIQUE: CT scan of the abdomen and pelvis performed using helical scanning technique with dynamic intravenous contrast injection. No oral contrast. Images reviewed with lung, soft tissue, and bone windows. Reconstructed coronal and sagittal MPR images reviewed. Delayed images for evaluation of the urinary system also acquired. All images stored on PACS. All CT scanners at this facility use dose modulation, iterative reconstruction, and/or weight based d osing when appropriate to reduce radiation dose to as low as reasonably achievable (ALARA). [facility]: Dose Right [facility]: CareDose [facility]: Dose Right [facility]: Teradose 4D [facility]: [email or web address] CONTRAST TYPE AND DOSE: contrast/concentration: Isovue 350.00 mg/ml; Total Contrast Delivered: 89.0 ml; Total Saline Delivered: 70.0 ml RENAL FUNCTION: Creatinine 1.18. RADIATION DOSE: CT Rad equipment meets quality standard of care and radiation dose reduction techniq ues were employed. CTDIvol: 7.5 - 10.4 mGy. DLP: 841 mGy-cm.. LIMITATIONS: Patient motion artifact. FINDINGS: There is motion artifact. LOWER CHEST: No consolidation or pleural effusion. LIVER: Mildly nodular contour. No masses. No dilated ducts. SPLEEN: Normal size. PANCREAS: No significant calcifications. No adjacent inflammation or peripancreatic fluid collections . Pancreatic duct not dilated. GALLBLADDER: Present. ADRENAL GLANDS: No significant masses or asymmetry. RIGHT KIDNEY AND URETER: There is a 1.9 cm cyst at the inferior pole of the right kidney. No signifi cant calcifications. No hydronephrosis or hydroureter. LEFT KIDNEY AND URETER: No significant calcifications. No hydronephrosis or hydroureter. AORTA AND VESSELS: Atherosclerotic calcifications within the abdominal aorta and its branches. No ab dominal aortic aneurysm or evidence for acute dissection RETROPERITONEUM: No retroperitoneal adenopathy, hemorrhage or masses. BOWEL AND PERITONEAL CAVITY: No dilated bowel loops to suggest obstruction. There is colonic divertic ulosis. There is wall thickening at the sigmoid colon. No free fluid or free air. APPENDIX: Not visualized. PELVIS: The uterus is surgically absent. No free fluid. The urinary bladder is decompressed. ABDOMINAL WALL: Small fat containing umbilical hernia. BONES: Multilevel degenerative changes at the spine. There is mild anterolisthesis of L3 on L4. IMPRESSION: 1. Colonic diverticulosis. Wall thickening at the sigmoid colon, may be secondary to c olitis vs mild/early acute diverticulitis. 2. Mildly nodular contour of the liver, may be seen with cirrhosis. TECHNICAL DOCUMENTATION: JOB ID: [id number] NM-64 Quality ID # [id number]: Final reports with documentation of one or more dose reduction techniques (e.g., Au tomated exposure control, adjustment of the mA and/or kV according to patient size, use of iterative reconstruction technique) 2010 [employer]- All Rights Reserved Reading location - IP/workstation name: [email or web address]
[2019-03-31] MEDS ORDERED: AMOXICILLIN TR/POT CLAVULANATE 500-125 MG TAB PO ONE (18:31)
[2019-03-31] MEDS ORDERED: METRONIDAZOLE 500 MG TABLET PO ONE (18:31)
[2019-03-31 18:39] VITALS: BP 164/147
== END 2019-03-31 18:57 | disposition home or self-care (01) ==
LOC: ER 11:37
DX: K57.12 Diverticulitis of small intestine without perforation or abscess without bleeding (principal); R11.2 Nausea with vomiting, unspecified; R10.32 Left lower quadrant pain; R10.13 Epigastric pain
CPT/HCPCS: 96376; 99284; 96372; 96361; 96374; 36415; 83690; 85025; 80053; 74177; A9270 ×3; J0500; J2405; J7030

== ENCOUNTER 2020-01-28 14:54 | Emergency (ER) | payer MEDICARE ==
--- NOTE | 2020-01-28 15:50 | ER Document Report ---
ED Medical Screen (RME) - General Chief Complaint: Knee Pain Stated Complaint: LEFT LEG PAIN Time Seen by Provider: 01/28/20 15:41 Primary Care Provider: CANDACE SYLVESTER FNP-C [Primary Care Provider] - Follow up as needed Mode of Arrival: Wheelchair Information source: Patient Notes: 74-year-old female presented to ED for complaint of left leg and knees swollen for the last several days. She states she just moved from one house to another and has had pain and swelling to the knee and leg since then. She states the leg and knee is so painful now that she cannot sleep. She states she went to the urgent care and they sent her to the emergency room because she would probably need a venous Doppler. She does have a history of skin cancer, diverticulitis, colonoscopy, endoscopy, depression hysterectomy and multiple biopsies. She also has a history of hepatitis C. She is alert oriented respirations regular nonlabored speaking in full sentences walks with even steady gait. We will get blood urine and a venous Doppler. We will also get a x-ray of the left knee. I have greeted and performed a rapid initial assessment of this patient. A comprehensive ED assessment and evaluation of the patient, analysis of test results and completion of medical decision making process will be conducted by an additional ED providers. TRAVEL OUTSIDE OF THE [place] IN LAST 30 DAYS: No - Related Data Allergies/Adverse Reactions: No Known Allergies Allergy (Verified 05/13/18 19:21) Home Medications: Amlodipine, HCTZ, escitalopram Past Medical History - Social History Frequency of alcohol use: Rare Drug Abuse: None - Past Medical History Cardiac Medical History: Reports: Hx Congestive Heart Failure - Diastolic, Hx Hypertension Renal/ Medical History: Denies: Hx Peritoneal Dialysis Psychiatric Medical History: Denies: Hx Depression Past Surgical History: Reports: Hx Hysterectomy Physical Exam - Vital signs Vitals: Temp Pulse Resp BP Pulse Ox 97.9 F 92 20 153/93 H 99 01/28/20 15:01/28/20 15:01/28/20 15:01/28/20 15:01/28/20 15:00 Course - Vital Signs Vital signs: Temp Pulse Resp BP Pulse Ox 97.9 F 92 20 153/93 H 99 01/28/20 15:01/28/20 15:01/28/20 15:01/28/20 15:00 01/28/20 15:00 Doctor's Discharge - Discharge Referrals: CANDACE SYLVESTER FNP-C [Primary Care Provider] - Follow up as needed
[2020-01-28 16:44] LABS: ABSOLUTE BASOPHILS # (AUTO) 0.1 10^3/uL (0.0-0.2); ABSOLUTE EOSINOPHILS # (AUTO) 0.2 10^3/uL (0.0-0.6); ABSOLUTE LYMPHOCYTES (AUTO) 1.7 10^3/uL (0.5-4.7); ABSOLUTE MONOCYTES (AUTO) 0.9 10^3/uL (0.1-1.4); ABSOLUTE NEUT (AUTO) 4.8 10^3/uL (1.7-8.2); BASOPHILS % (AUTO) 1.1 % (0-2); EOSINOPHILS % (AUTO) 2.9 % (0-6); HEMOGLOBIN 14.3 g/dL (12.0-15.5); LYMPHOCYTES % (AUTO) 21.9 % (13-45); MEAN CORPUSCULAR HEMOGLOBIN 31.5 pg (27.0-33.4); MEAN CORPUSCULAR HGB CONC 34.8 g/dL (32.0-36.0); MEAN CORPUSCULAR VOLUME 90 fl (80-97); PLATELET COUNT 256 10^3/uL (150-450); RED BLOOD COUNT 4.54 10^6/uL (3.72-5.28); RED CELL DISTRIBUTION WIDTH 12.6 % (11.5-14.0); SEGMENTED NEUTROPHILS % (AUTO) 62.1 % (42-78); TOTAL CELLS COUNTED % (AUTO) 100 %; WHITE BLOOD COUNT 7.7 10^3/uL (4.0-10.5)
--- NOTE | 2020-01-28 16:47 | RADIOLOGY REPORT (SQ) ---
EXAM DESCRIPTION: KNEE LEFT 4 VIEW IMAGES COMPLETED DATE/TIME: 01/28/2020 4:05 pm REASON FOR STUDY: Pain swelling COMPARISON: None. NUMBER OF VIEWS: Four views. TECHNIQUE: AP, lateral, and both oblique radiographic images acquired of the left knee. LIMITATIONS: None. FINDINGS: MINERALIZATION: Normal. BONES: No acute fracture or dislocation. No worrisome bone lesions. JOINT: There is a moderate joint effusion. SOFT TISSUES: No soft tissue swelling. No radio-opaque foreign body. OTHER: No other significant finding. IMPRESSION: Joint effusion with no osseous finding. TECHNICAL DOCUMENTATION: JOB ID: [id number] [employer]- All Rights Reserved Reading location - IP/workstation name: [email or web address]
[2020-01-28 16:52] LABS: APPEARANCE,URINE CLEAR; BILIRUBIN,URINE NEGATIVE (NEGATIVE); COLOR,URINE YELLOW; GLUCOSE, URINE NEGATIVE (NEGATIVE); KETONES,URINE NEGATIVE (NEGATIVE); LEUKOCYTE ESTERASE,URINE NEGATIVE (NEGATIVE); NITRITE,URINE NEGATIVE (NEGATIVE); PROTEIN,URINE NEGATIVE (NEGATIVE); URINE SPECIFIC GRAVITY 1.017; UROBILINOGEN,URINE NEGATIVE mg/dL (<2.0)
[2020-01-28 16:59] LABS: ALBUMIN 4.7 g/dL (3.5-5.0); ALKALINE PHOSPHATASE 72 U/L (38-126); ANION GAP 7 (5-19); ASPARTATE AMINO TRANSFERASE 30 U/L (14-36); BILIRUBIN,TOTAL 0.3 mg/dL (0.2-1.3); BLOOD UREA NITROGEN 25 mg/dL (7-20); CALCIUM 10.1 mg/dL (8.4-10.2); CARBON DIOXIDE 28 mmol/L (22-30); CHLORIDE 104 mmol/L (98-107); CREATINE KINASE 252 U/L (30-135); GLUCOSE 114 mg/dL (75-110); POTASSIUM 3.4 mmol/L (3.6-5.0); TOTAL PROTEIN 8.5 g/dL (6.3-8.2)
[2020-01-28] MEDS ORDERED: KETOROLAC TROMETHAMINE 60 MG/2 ML SDV IM ONE (19:47)
--- NOTE | 2020-01-28 19:56 | ER Document Report ---
ED General - General Chief Complaint: Knee Pain Stated Complaint: LEFT LEG PAIN Time Seen by Provider: 01/28/20 15:41 Primary Care Provider: CANDACE SYLVESTER FNP-C [NURSE PRACTITIONER] - Follow up as needed Mode of Arrival: Wheelchair TRAVEL OUTSIDE OF THE [place] IN LAST 30 DAYS: No - HPI Notes: Chief complaint: Left knee pain HPI: Generally healthy 74-year-old female who denies taking any current medications and has no known allergies now presents with 3 to 4-day history of left knee pain. States that she has been moving furniture and thinks she may have overused the joint and therefore developed symptoms. She denies any discrete injury. She denies fever, chills redness or warmth. She has no history of gout. She tried some Tylenol with minimal relief and says the joint is principally painful when she puts weight on it. - Related Data Allergies/Adverse Reactions: No Known Allergies Allergy (Verified 05/13/18 19:21) Home Medications: Amlodipine, HCTZ, escitalopram Past Medical History - General Information source: Patient - Social History Smoking Status: Current Every Day Smoker Frequency of alcohol use: Rare Drug Abuse: None Family History: Hypertension - Past Medical History Cardiac Medical History: Reports: Hx Congestive Heart Failure - Diastolic, Hx Hypertension Endocrine Medical History: Reports: None Renal/ Medical History: Reports: None. Denies: Hx Peritoneal Dialysis GI Medical History: Denies: Hx Ulcer Psychiatric Medical History: Denies: Hx Depression Past Surgical History: Reports: Hx Hysterectomy Review of Systems - Review of Systems Notes: Constitutional: Negative for fever. HENT: Negative for sore throat. Eyes: Negative for visual changes. Cardiovascular: Negative for chest pain. Respiratory: Negative for shortness of breath. Gastrointestinal: Negative for abdominal pain, vomiting or diarrhea. Genitourinary: Negative for dysuria. Musculoskeletal: As per HPI. Skin: Negative for rash. Neurological: Negative for headaches, weakness or numbness. 10 point ROS negative except as marked above and in HPI. Physical Exam - Vital signs Vitals: Temp Pulse Resp BP Pulse Ox 97.9 F 92 20 153/93 H 99 01/28/20 15:00 01/28/20 15:00 01/28/20 15:00 01/28/20 15:00 01/28/20 15:00 - Notes Notes: GENERAL: Female patient approximately stated age appearing in no acute distress. SKIN: Good turgor no rashes. HEAD: Normocephalic atraumatic. EYES: PERRLA. EOMI. Conjunctivae and sclerae clear. NECK: Supple. No masses or thyromegaly. No adenopathy. Carotids 2+ without bruits. No JVD. BACK: Symmetrical without tenderness. CHEST: Respirations unlabored. Breath sounds clear and symmetrical. HEART: Regular rhythm. No murmur gallop or rub. ABDOMEN: Soft nontender without masses, organomegaly or rebound. Bowel sounds normally active. No bruits. EXTREMITIES: Minimal effusion left knee. No warmth or redness. Good range of motion but complains of discomfort along medial aspect of the knee with active or passive movement. Minimal crepitus. Mild tenderness over medial joint line. No gross ligamentous instability. No edema. No calf tenderness. Cap refill less than 1.5 seconds. Dorsalis pedis and posterior tibial pulses 3+ and symmetrical. NEUROLOGICAL: Alert and oriented x3. Nonfocal. PSYCHIATRIC: Appropriate affect. Course - Re-evaluation Re-evalutation: 01/28/20 19:54 Toradol 15 mg IM. Knee immobilizer and crutches. Ice and elevation at home. Tramadol as needed. Follow-up with primary care physician orthopedics 3 to 5 days. Return here as needed for new or worsening symptoms. Findings, clinical impression and plan of treatment have been discussed with patient/family. Understanding of current findings and recommendations has been acknowledged by them and there is agreement regarding disposition and follow-up. - Vital Signs Vital signs: Temp Pulse Resp BP Pulse Ox 97.9 F 92 20 153/93 H 99 01/28/20 15:00 01/28/20 15:00 01/28/20 15:00 01/28/20 15:00 01/28/20 15:00 - Laboratory Result Diagrams: 01/28/20 16:22 01/28/20 16:22 Laboratory results interpreted by me: 01/28/20 01/28/20 16:22 16:22 Potassium 3.4 L BUN 25 H Glucose 114 H Creatine Kinase 252 H Total Protein 8.5 H Urine Blood SMALL H - Diagnostic Test Radiology reviewed: Reports reviewed - Plain films left knee per radiologist: Small effusion. No fracture or dislocation. Doppler ultrasound left lower e xtremity shows no DVT per radiologist. Discharge - Discharge Clinical Impression: Internal derangement of left knee Condition: Stable Disposition: HOME, SELF-CARE Additional Instructions: Kidney Injury You have a kidney injury. The injury does not seem to be serious, and should heal by itself. Kidney injuries are treated with rest. The first 24 hours after the injury, bed rest is usually recommended. You should not play sports or do vi gorous physical activity for a few days until all blood is cleared from the urine. The doctor will advise you when it's safe. Drink plenty of fluids (at least three quarts per day), unless the p joe has advised you otherwise. This washes the blood away, lessening the risk of painful clots forming. You should return for further care if you develop lightheadedness, fever, increasingly severe flank pain, or inability to urinate. Elevate knee and apply ice packs intermittently. Use knee immobilizer and crutches. Take prescribed medication as needed. Follow-up with your primary care provider or relocation specialist in 3 to 5 days. Return here as needed for new or worsening symptoms: Pain that is worsening or unimproved Uncontrolled vomiting High fever or shaking chills Overall worsening Prescriptions: Tramadol HCl [Ultram 50 mg Tablet] 50 mg PO Q4HP PRN #12 tab PRN Reason: Referrals: CANDACE SYLVESTER FNP-C [NURSE PRACTITIONER] - Follow up as needed
[2020-01-28 20:20] VITALS: BP 154/94
--- NOTE | 2020-01-28 21:57 | RADIOLOGY REPORT (SQ) ---
EXAM DESCRIPTION: CLINICAL HISTORY: 74 years Female left leg pain and swelling COMPARISON: None FINDINGS: Left common femoral, femoral, popliteal, posterior tibial and peroneal veins are patent. Greater saphenous veins (. IMPRESSION: Negative left lower extremity venous ultrasound. Findings conveyed to the attending physician at 7:00 PM local time.
== END 2020-01-28 20:22 | disposition home or self-care (01) ==
LOC: ER 14:54
DX: M23.92 Unspecified internal derangement of left knee (principal); M25.462 Effusion, left knee; F17.200 Nicotine dependence, unspecified, uncomplicated; I10 Essential (primary) hypertension; Z79.899 Other long term (current) drug therapy
CPT/HCPCS: 99284; 96372; 36415; 82550; 85025; 80053; 81001; 93971; 73564; J1885